=== PATIENT | female | born 1950 | race Caucasian/White ===

== ENCOUNTER 2019-12-29 07:55 | Outpatient (CLI) | payer MEDICARE, OTHER, SELFPAY ==
--- NOTE | 2019-12-29 08:01 | MM_ITS ---
WS: [id number] BILATERAL DIGITAL SCREENING MAMMOGRAPHY WITH CAD CLINICAL INFORMATION: SCREENING HISTORY: Screening mammogram. No current complaints. COMPARISON: TECHNIQUE: Bilateral CC and MLO views. FINDINGS: The breasts are composed of heterogeneous fibroglandular density tissue, which can limit the detectio n of small underlying mass lesions. Bilateral punctate calcifications. Spiculated focal asymmetric de nsity right breast measuring 9 mm this appears to be upper inner right breast posterior depth. RECOMM END FURTHER EVALUATION WITH RIGHT DIAGNOSTIC MAMMOGRAPHY AND ULTRASOUND. Left breast is unremarkable. Vascular calcification. MM/[place] [id number] IMPRESSION: BI-RADS: 0-Incomplete: Need additional imaging evaluation FOLLOW UP: Need Additional Imaging
== END 2019-12-29 07:56 | disposition home or self-care (01) ==
LOC: RADSHAW 07:59
PROVIDERS: PCP Internal Medicine; Visit Provider Internal Medicine
DX: Z12.31 Encounter for screening mammogram for malignant neoplasm of breast (principal); R92.1 Mammographic calcification found on diagnostic imaging of breast
CPT/HCPCS: 77067

== ENCOUNTER 2020-01-02 10:06 | Outpatient (CLI) | payer MEDICARE, OTHER, SELFPAY ==
--- NOTE | 2020-01-02 10:09 | USCV_ITS ---
Ashley Garcia Age: 69 Gender: F : 1950 Exam Date: 01/02/2020 10:25 Ordering Phys: Donny Newell DO Technologist: Mildred Harrison Exam Location: [facility] – [place] Indication: SOB BP: 130 / 94 HR: 106 Rhythm: Other Technical Quality: Adequate MEASUREMENTS (Male / Female) Normal Values 2D ECHO LV Diastolic Diameter PLAX 3.3 cm 4.2 - 5.9 / 3.9 - 5.3 cm LV Systolic Diameter PLAX 2.5 cm LV Chamber Size 2.9 cm IVS Diastolic Thickness 1.1 cm 0.6 - 1.0 / 0.6 - 0.9 cm IVS Systolic Thickness 1.5 cm LVPW Diastolic Thickness 1.4 cm 0.6 - 1.0 / 0.6 - 0.9 cm LVPW Systolic Thickness 1.5 cm RV Chamber Size 3.6 cm LVOT Diameter 2.0 cm LV Ejection Fraction 2D Teich 47.5 % LV Ejection Fraction MOD 2C 75.2 % LV Ejection Fraction 2C AL 75.8 % LA Diameter 4.0 cm LA Width 3.9 cm LA Height 5.7 cm RA Width 3.3 cm RA Height 5.4 cm Aorta at Sinotubular Diameter 3.4 cm M-MODE LV Diastolic Diameter MM 4.4 cm 4.2 - 5.9 / 3.9 - 5.3 cm LV Systolic Diameter MM 2.6 cm LV Ejection Fraction MM Teich 72.9 % IVS Diastolic Thickness MM 1.2 cm 0.6 - 1.0 / 0.6 - 0.9 cm IVS Systolic Thickness MM 1.5 cm LVPW Diastolic Thickness MM 1.5 cm 0.6 - 1.0 / 0.6 - 0.9 cm LVPW Systolic Thickness MM 1.7 cm RV Diastolic Diameter MM 2.8 cm Aortic Annulus Diameter 3.1 cm LA Ao Ratio MM 1.3 MV E Point Septal Separation 0.3 cm DOPPLER AV Peak Velocity 131.0 cm/s LVOT Peak Velocity 94.0 cm/s AV Area Cont Eq vti 2.4 cm squared AV Area Cont Eq pk 2.3 cm squared MV Area PHT 5.0 cm squared MV E' Velocity 12.0 cm/s Mitral E to MV E' Ratio 8.9 Mitral E to LV E' Lateral Ratio 9.5 Mitral E to LV E' Septal Ratio 8.4 TR Peak Velocity 230.2 cm/s TR Peak Gradient 21.2 mmHg TR Mean Velocity 194.2 cm/s TR Mean Gradient 15.5 mmHg TR Velocity Time Integral 58.3 cm TV Peak E Velocity 71.0 cm/s Right Atrial Pressure 15.0 mmHg Pulmonary Artery Systolic Pressu 36.2 mmHg PV Peak Velocity 79.0 cm/s RV Acceleration Time 0.1 s RV Ejection Time 0.3 s RV AcT/ET 0.4 FINDINGS Left Ventricle Normal left ventricular size and LV function with no regional wall motion abnormalities. Mild LVH is noted. LVEF is 60-65%. Diastolic function can not be assessed because of tachycardia. Right Ventricle The right ventricle is normal in size and function. Right Atrium The right atrium is normal in size. Left Atrium The left atrium is normal in size. Mitral Valve Structurally normal mitral valve without significant stenosis or prolapse. There is no mitral regurgitation. Aortic Valve Structurally normal aortic valve without significant sclerosis or stenosis. There is no aortic regurgitation. Tricuspid Valve Structurally normal tricuspid valve without significant stenosis. Mild TR is noted. RA pressure is elevated at 10- 15mmHg. RVSP is 35-40. Atleast mild pulmonary hypertension Pulmonic Valve Structurally normal pulmonic valve without significant stenosis. There is no pulmonic regurgitation. Pericardium Normal pericardium without effusion. Aorta Mildly dilated ascending aorta CONCLUSIONS LV systolic function is normal with EF of 60-65% Diastolic function can not be assessed because of tachycardia. (Possible atrial fibrillation. If patient has not been diagnosed with afib before, will recommend getting EKG and event monitor if needed) Elevated RA pressure Mild dilatation of ascending aorta Cem Huerta MD (Electronically Signed) Final Date: 02 January 2020 12:40 S
== END 2020-01-02 10:07 | disposition home or self-care (01) ==
LOC: US 10:07
PROVIDERS: PCP Internal Medicine; Visit Provider Internal Medicine
DX: R06.00 Dyspnea, unspecified (principal); R06.02 Shortness of breath
CPT/HCPCS: 93306

== ENCOUNTER 2020-02-01 10:42 | Outpatient (CLI) | payer MEDICARE, OTHER, SELFPAY ==
--- NOTE | 2020-02-01 10:58 | MM_ITS ---
WS: [id number] RIGHT DIGITAL MAMMOGRAPHY WITH CAD CLINICAL INFORMATION: INCONCLUSIVE MAMMO,DENSITIES COMPARISON: December 29, 2019 TECHNIQUE: 3 views of the right breast were obtained. FINDINGS: The right breast is composed of heterogeneous fibroglandular density tissue, which can limit the dete ction of small underlying mass lesions. Stable spiculated asymmetric density right breast measuring 9 mm upper inner posterior depth. Ultraso und is pending. ULTRASOUND BREAST RIGHT TECHNIQUE: Ultrasound right breast focused area of concern. CLINICAL INFORMATION: INCONCLUSIVE MAMMO,DENSITIES COMPARISON: None. FINDINGS: Ultrasound right breast at the 1:00 position 3 cm from the nipple. Hypoechoic solid appearing lesion is taller than wide with irregular margins. Findings are suspicious and recommend further evaluation with ultrasound-guided biopsy. This lesion measures approximately 1.1 x 0.9 x 1.2 CM. Right axilla is evaluated and demonstrates enlarged lymph node with loss of the normal fatty hilum an d cortical thickening measuring 2.0x 2.5 x 1.3 CM. Recommend ultrasound-guided biopsy. MM/MM [place] [facility] [place] [id number] IMPRESSION: BI-RADS: 4-Suspicious Finding-Biopsy Should Be Considered FOLLOW UP: US Guided Biopsy Recommended
== END 2020-02-01 10:43 | disposition home or self-care (01) ==
LOC: RADSHAW 10:47
PROVIDERS: PCP Internal Medicine; Visit Provider Internal Medicine
DX: R92.8 Other abnormal and inconclusive findings on diagnostic imaging of breast (principal); R59.0 Localized enlarged lymph nodes
CPT/HCPCS: 76642; 77065

== ENCOUNTER 2020-02-10 07:54 | Outpatient (CLI) | payer MEDICARE, OTHER, SELFPAY ==
--- NOTE | 2020-02-10 08:15 | PC.NURSE ---
pt stated she took beta willis less than 24 hours ago. she was also concerned about tredmill test. discussed with pt the other options for today and she agreed to a chemical stress. spoke to dr mata about to switching to lexiscan, he agreed. pt to proceed with lexiscan today.
--- NOTE | 2020-02-10 08:15 | ECG_ITS ---
[facility] Test Date: 2020-02-10 Pat Name: Ashley Garcia Department: Room: Gender: Female [employer] Worker: : 1950 Requested By: Donny Delcid Order Number: [id number] Kimani MD: Anna Yoo M.D. Interpretive Statements NAME OF STUDY: LEXISCAN SESTAMIBI STRESS TEST INDICATION: Onset a fib, PROCEDURE: At the baseline, the EKG revealed atrial fibrillation with rapid ventricular rate and occasional PVCs. Incomplete right bundle branch block. The baseline blood pressure was 152/66 mm Hg with a heart rate of 139 beats/min. Lexiscan was infused over a period of 20 seconds. A total of 0.4 milligrams of Lexiscan was infused. The stress phase was continued for a total of 5 minutes. Heart rate at the end of the stress phase was 134 with a blood pressure 168/88. The EKG at the peak infusion revealed no significant changes. Sestamibi was injected 20 seconds after the Lexiscan infusion. Blood pressure at the end of the recovery phase was 160/88 with a heart rate of 131 per minute. CONCLUSION: 1. No significant EKG changes with the LexiScan infusion 2. No LexiScan induced chest pain or cardiac arrhythmia 3. Normal blood pressure and heart rate response 4. Sestamibi/sestamibi perfusion scan pending; see separate report. Electronically Signed On 02-10-2020 17:45:21 CDT by Anna Yoo M.D. [email or web address]
--- NOTE | 2020-02-10 09:34 | NMCV_ITS ---
NM alda perf SPECT r/s* [id number] Ashley Garcia Age: 69 Gender: F : 1950 Exam Date: 02/10/2020 09:29 Ordering Phys: Donny Newell DO Technologist: DELIA Hayes Exam Location: [facility] [place] Indications: NEW ONSET AFIB STRESS TEST [facility] IMAGE PROTOCOL Rest/Stress 1 Lexiscan Day Radiopharmaceutical Dose (mCi) Administration Site Administered by Rest: Tc-99m 10.8 IV Linda Bearden, HOT POND OPERATOR Sestamibi Stress:Tc-99m 32.4 IV Linda Bearden, HOT POND OPERATOR Sestamibi Rest: 10-Feb-2020 60 Discovery 630 Stress: 10-Feb-2020 30 Discovery 630 0.4mg Lexiscan. Images obtained in supine and prone position. SPECT RESULTS Technical Quality: Excellent Raw Data Analysis: Normal Image Corrections: No attenuation or motion correction applied Summed Stress Score: 1 Summed Rest Score: 1 Summed Difference Score: 0 PERFUSION FINDINGS Myocardial perfusion imaging reveals small sized defect of mild severity in basal to mid anterior wall with somewhat improved tracer uptake in prone stress images. This is likely consistent with breast attenuation artifact. FUNCTIONAL RESULTS (calculated via Gated SPECT) Stress Image LV EF (%): 50 Stress EDV (mL):62 TID: 1 Stress ESV (mL):31 FUNCTIONAL FINDINGS: The left ventricle is normal in size. Transient Ischemia Dilatation of 1. The left ventricular ejection fraction is low normal with a value of 50%. There is normal left ventricular wall thickening. Normal end diastolic and end systolic volumes. IMPRESSIONS 1. Myocardial perfusion imaging reveals mild defect in basal to mid anterior wall consistent with breast attenuation artifact. 2. Overall left ventricular systolic function is low normal without regional wall motion abnormalities. 3. The left ventricular ejection fraction is low normal with a value of 50%. 4. No coronary ischemia based on this study. Christina Morales MD (Electronically Signed) Final Date: 11 February 2020 10:09 S
[2020-02-10 09:41] VITALS: BMI 33.6
[2020-02-10] MEDS: regadenoson 0.4 Mg/5 ml Syringe IVP (10:14)
[2020-02-10 10:34] VITALS: BP 160/88; PULSE 132
== END 2020-02-10 07:55 | disposition home or self-care (01) ==
LOC: CDL 07:55
PROVIDERS: PCP Internal Medicine; Visit Provider Internal Medicine
DX: I48.91 Unspecified atrial fibrillation (principal)
CPT/HCPCS: 78452; 93017; A9500; J2785

== ENCOUNTER 2020-02-16 07:13 | Outpatient (CLI) | payer MEDICARE, OTHER, SELFPAY ==
--- NOTE | 2020-02-16 07:21 | US_ITS ---
WS: [id number] ULTRASOUND-GUIDED RIGHT BREAST BIOPSY HISTORY: ABNORMAL MAMMOGRAM COMPARISON: None. Procedure, risks and complications are explained to the patient. Medications are reviewed. Consent is obtained. The mass in the RIGHT breast is localized with ultrasound. Mass is localized to 1:00, 3 cm from the n ipple. Skin is cleansed with ChloraPrep and anesthetized with 1% buffered lidocaine. Small dermatome is made. Under sterile conditions mass is biopsied with a 14-gauge Achieve needle. Multiple core biop sies are performed. Material placed in formalin and sent to pathology for review. No complications en countered. Breast tissue marker (Clowdy ultrasound enhanced ribbon): Single. Patient left the radiology suite with no complications. [place] [facility] [place] [facility] with any concerns. US/[place] [id number] IMPRESSION: 1. Uncomplicated core needle biopsy RIGHT breast mass at 1:00. PATHOLOGY: Ductal carcinoma in situ, grade 3 with comedonecrosis. Invasive duct al carcinoma. Preliminary report with additional pathology evaluation pending. RECOMMENDATION: Follow-up with Dr. Newell, oncology and breast surgeon.
== END 2020-02-16 07:14 | disposition home or self-care (01) ==
PROVIDERS: PCP Internal Medicine; Visit Provider Internal Medicine
DX: R92.8 Other abnormal and inconclusive findings on diagnostic imaging of breast (principal); C50.211 Malignant neoplasm of upper-inner quadrant of right female breast
CPT/HCPCS: 19083; 88305

== ENCOUNTER 2020-02-24 12:12 | Outpatient (CLI) | payer MEDICARE, OTHER, SELFPAY ==
[2020-02-24 12:48] LABS: Anion Gap 12.1 (5-19); Blood Urea Nitrogen 13 mg/dL (8-23); Calcium 9.5 mg/dL (8.5-10.5); Carbon Dioxide 31 mmol/L (22-29); Chloride 100 mmol/L (98-107); Glomerular Filtration Rate 61.9 mL/min (90-130); Glucose 144 mg/dL (65-115); Osmolality Calculated 293 mOsm/kg (285-295); Potassium 3.1 mmol/L (3.5-5.1); Sodium 140 mmol/L (136-145)
== END 2020-02-24 12:13 | disposition home or self-care (01) ==
LOC: LAB 12:16
PROVIDERS: PCP Internal Medicine; Visit Provider Internal Medicine
DX: R53.83 Other fatigue (principal)
CPT/HCPCS: 36415; 80048

== ENCOUNTER 2020-03-14 12:12 | Outpatient (CLI) | payer MEDICARE, OTHER, SELFPAY ==
--- NOTE | 2020-03-14 12:22 | US_ITS ---
WS: [id number] ULTRASOUND-GUIDED RIGHT AXILLARY NODE BIOPSY. HISTORY: RIGHT BREAST CANCER COMPARISON: 02/16/2020 Procedure, risks and complications are explained to the patient. Medications are reviewed. Consent is obtained. Recently described RIGHT axillary lymph node is identified by ultrasound. This does appear to be a no rmal lymph node with diffuse fatty replacement. Skin is cleansed with ChloraPrep and anesthetized wit h 1% buffered lidocaine. Small dermatome is made. Under sterile conditions lymph node is is biopsied with an 18 Achieve needle. Multiple core biopsies are performed. Material placed in saline and sent t o pathology for review. No complications encountered. Breast tissue marker (Bard ultrasound enhanced ribbon): Single. Patient left the radiology suite with no complications. Patient is instructed to return [place] [facility] [place] [facility] with any concerns. US/US biopsy lymph node breast/ax IMPRESSION: 1. Uncomplicated core needle biopsy RIGHT axillary lymph node. PATHOLOGY: Reactive follicular hyperplasia. No malignancy. Flow cytometry will be performed also. RECOMMENDATION: Follow-up with Dr. Bennett.
== END 2020-03-14 12:13 | disposition home or self-care (01) ==
LOC: RAD 12:14
PROVIDERS: PCP Internal Medicine; Visit Provider Surgery
DX: C50.911 Malignant neoplasm of unspecified site of right female breast (principal)
CPT/HCPCS: 19083; 38505; 76942; 88305

== ENCOUNTER → 2020-03-25 09:51 | Outpatient (BNVA) | payer MEDICARE, OTHER, SELFPAY | PROVIDERS: PCP Internal Medicine; Visit Provider Surgery | DX: Z11.59 Encounter for screening for other viral diseases (principal) | CPT/HCPCS: 87635 ==

== ENCOUNTER 2020-03-29 08:13 | Day surgery (SDC) | payer MEDICARE, OTHER, SELFPAY ==
[2020-03-28 10:56] VITALS: BMI 33.6
[2020-03-29] VITALS (8 sets, daily range): BP systolic 167–221; BP diastolic 113–155; PULSE 79–98; RESP 18; TEMP 36.7–36.9; O2SAT 94–97
--- NOTE | 2020-03-29 08:00 | NM_ITS ---
WS: [id number] SENTINEL NODE TECHNIQUE: Right sentinel node injection CLINICAL INFORMATION: R Breast Lumpectomy COMPARISON: None. PROCEDURE: The procedure including risks, benefits, and complications were discussed; the patient agr eed to proceed. Patient was prepped and draped in usual sterile fashion. Subsequently, 1% lidocaine p reservative-free was administered at the 12:00, 3:00, 6:00, and 9:00 o'clock positions for local anes thesia. Subsequently, 4 aliquots of filtered technetium 99m sulfur colloid was injected into the subc utaneous soft tissues. A total dose of 1.06 mCi was administered. Patient tolerated the procedure well with no immediate complications. SC/NM sentinel node inject [id number] IMPRESSION: Uncomplicated Right breast sentinel node injection with a total dose of 1.06 mC i.
--- NOTE | 2020-03-29 09:11 | W.PM.OPSUD ---
Surgery/Procedure H&P Update DATE OF PROCEDURE: March 29, 2020 DATE H&P PERFORMED: 03/20/20 H&P UPDATE INFORMATION: No changes to prior documentation PLANNED PROCEDURE: Operation Date: 03/29/20 11:15 Proposed Procedures p Sentinal Lymph Node Biopsy(Right) - Dieudonne Bennett MD s Right breast lumpectomy(Right) - Dieudonne Bennett MD
--- NOTE | 2020-03-29 09:39 | ANES.PREANE2 ---
Pre-Anesthetic Assessment Pre-Anesthetic Assessment: Height/Weight: Height 1.6 m Weight 86.183 kg Temp Pulse Resp Pulse Ox 98.4 F 98 18 97 03/29/20 08:38 03/29/20 08:38 03/29/20 08:38 03/29/20 08:38 Preop Diagnosis: None Proposed Procedure: Operation Date: 03/29/20 11:15 Proposed Procedures p Sentinal Lymph Node Biopsy(Right) - Dieudonne Bennett MD s Right breast lumpectomy(Right) - Dieudonne Bennett MD Familial anesthetic complications: PONV Was Beta Ari taken within 24 hours: N/A Last intake: NPO > 8 hrs Social: Social History: No alcohol and No tobacco Exam: Pre-Anes Outpt Exam: alert, oriented x 3, clear to auscultation bilaterally and regular rate & rhythm Airway: Cervical ROM: WNL MP: 4 Dentition: Full Additional comments: Small mouth opening, everytime she goes to dentist her jaw hurts CV/HEM: CV/HEM: Afib and HTN GI: GI: GERD Anesthetic Plan: ASA status: 3 Anesthesia: MAC Risk of > 500 ml blood loss (7ml/kg in children): No Data Anesthesia Cardiac Studies: Cardiac Event Monitor 02/29/20
[2020-03-29] MEDS: scopolamine 1.5 Patch 1 PATCH TRANSDERMA (09:49)
[2020-03-29] MEDS: sodium chloride 0.9% 1,000 ML 30 ML IV (10:00)
--- NOTE | 2020-03-29 11:10 | P.OP_ITS ---
Operative Report Date of procedure: March 29, 2020 Pre-op Diagnosis: Right breast cancer. Post-op diagnosis: same Procedure Done: 1. Right breast lumpectomy. 2. Right axillary sentinel lymph node biopsy. Specimens removed/disposition: 1. Right breast lumpectomy. Long suture anteriorly, short suture medial. 2. Right axillary sentinel lymph node(s). Surgeon: Dieudonne Bennett Anesthesia: MAC Estimated blood loss (mL): 5 Complications: None. Condition: stable Disposition: PACU Procedure: The patient was brought to the operating room and was placed in a supine position on the operating room table. The patient had undergone radioactive tracer injection in radiology preoperatively. A monitored anesthetic was induced. The right axilla and breast were prepped and draped in a sterile fashion. A combination of 1% lidocaine and 0.5% bupivacaine with 1- 200,000 parts epinephrine was used for local anesthesia throughout the procedures. Attention was first directed to the right axilla. The gamma probe was used to find the hot spot in the axilla inferiorly and slightly medially. A slightly curvilinear incision was carried out over the hot spot of the axilla. Cautery and blunt dissection were used to traverse the subcutaneous tissue and the axilla was entered. Using a combination of inspection and the gamma probe, the hot lymph node was found and was completely removed using blunt dissection and cautery. There actually appeared to be perhaps 2 lymph nodes just adjacent to each other, both of which were removed and one specimen. One of the lymph no valeriy registered counts of just over 2000 on the field. Further inspection of the axilla with the gamma probe revealed very few remaining counts at all. The wound was irrigated with saline. A suture of 3-0 Vicryl was used to bring the deeper tissue together and the skin was approximated using a running subcuticular suture of 4-0 Vicryl. Attention was then directed to the right breast where the patient had a palpable mass in the 1:00 axis several centimeters out from the edge of the areola. A transverse incision was made and skin flaps were created inferiorly and superiorly. Dissection with cautery, blunt dissection, and some sharp dissection was then carried out posteriorly and the entire firm mass was included in the specimen with some normal-appearing breast tissue around it. The specimen was marked with a long suture anteriorly and a short suture medially for pathologic orientation. No other abnormalities were seen or palpated anywhere in the wound. The wound was irrigated with saline. The skin was reapproximated using a running subcuticular suture of 4-0 Vicryl. Benzoin and Steri-Strips were placed over the wounds and sterile bandages followed. The patient was taken to the recovery area in stable condition postoperatively.
[2020-03-29] MEDS: labetalol 5 mg/mL SDV 20mL 10 MG IVP ×2 (11:48→13:20)
[2020-03-29] MEDS: hyDRALAzine 20 mg/mL INJ 1 mL 10 MG IVP (12:33)
[2020-03-29] MEDS: hyDRALAzine 50 mg Tablet PO (14:11)
--- NOTE | 2020-03-29 20:21 | ANE.PACU2 ---
Inpatient post-anesthesia follow up: Airway intact: Yes Vital signs: Temperature 98.1 F Pulse Rate 94 Respiratory Rate 18 Blood Pressure 200/130 Pulse Oximetry 97 Oxygen Delivery Me thod Room Air Oxygen Flow Rate Fraction of Inspir ed Oxygen Hydration adequate: Yes Nausea and vomiting: No Pain level: 1 Mental status: Baseline Additional Comments: Patient with hypertensive urgency after procedure despite taking all her morning medicines and being given labetalol 20 mg IV and hydralazine 10 mg IV. Spoke with Dr. Huerta who recommended admission with hospitalist for inpatient BP control. However, patient very reluctant to be admitted, stating she was always like this and that she was having no symptoms and would sign out AMA. After i spoke with her, She did decide to have conversation with hospitalist, Dr. Dejesus regarding possible admission. Apparently, after the conversation she decided not to be admitted and to go home.
== END 2020-03-29 15:10 | disposition home or self-care (01) ==
PROVIDERS: PCP Internal Medicine; Visit Provider Surgery
PROC: (CPT 19301; principal; 2020-03-29 11:15)
PROC: (CPT 19301; 2020-03-29 11:15)
DX: D05.11 Intraductal carcinoma in situ of right breast (principal); D05.81 Other specified type of carcinoma in situ of right breast; I10 Essential (primary) hypertension; I48.91 Unspecified atrial fibrillation; Z80.0 Family history of malignant neoplasm of digestive organs; Z80.3 Family history of malignant neoplasm of breast
CPT/HCPCS: 19301; 38500; 38792; 12345; 88305; 96374; 96375; A9541; J0360; J0690; J2704; J3010; J3490; J7030

== ENCOUNTER 2020-04-17 13:06 | Outpatient (CLI) | payer MEDICARE, OTHER, SELFPAY ==
--- NOTE | 2020-04-17 17:32 | ONC CON_ITS ---
Dr. Robles New Patient Note Patient: Ashley Garcia Unit #: [id number]: 1950 Dicatated By: Donny Robles M.D.Date of Visit: Apr 17, 2020 Onc MED New Patient/Consult Referring Physician: Dr. Dieudonne Bennett M.D. Chief Complaint: Breast cancer. 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 She had presented with abnormal screening mammogram. That study, from 12/29/2019, was BI-RADS 0. Findings included a 9 mm spiculated focal asymmetric density in the upper inner right breast. Additional mammographic views on 02/01/2020 showed stable spiculated asymmetric density in the right breast. Ultrasound at that time showed a hypoechoic solid-appearing lesion with irregular measuring 1.9 x 0.9 x 1.2 cm. A 2.0 x 2.5 x 1.3 cm lymph node in the right axilla showed loss of normal fatty hilum and cortical thickening. The findings were BI-RADS 4, suspicious, and biopsy was recommended. On 02/16/2020 she underwent biopsy of the right breast lesion at 1:00. Pathology showed grade 2 invasive ductal carcinoma and ductal carcinoma in situ, solid type, grade 3 with comedonecrosis. The breast prognostic profile showed ER +85% and UT positive at 90%. The tumor was positive for overexpression of HER-2/cathryn, 3+ by IHC with amplification ratio by FISH of 5.2 with 10.0 HER-2 copies/cell. The Ki-67 was borderline at 10%. On 03/14/2020 she underwent ultrasound-guided biopsy of the right axillary lymph node. Pathology showed reactive follicular hyperplasia. There was no malignancy identified. On 04/02/2020 she underwent right breast lumpectomy with axillary sentinel lymph node biopsy. The gross pathology described a chase-white lesion within the lumpectomy specimen measuring 1 x 1.2 x 0.8 cm. Microscopic examination showed grade 2 invasive ductal carcinoma measuring 2 mm in greatest dimension. The closest margin to invasive carcinoma was the superior margin measuring 4 mm. Grade 3 ductal carcinoma in situ was noted in 4 blocks. The closest margin to DCIS was also the superior margin measuring 2.8 mm. There was no involvement in 2 sentinel lymph nodes. Other pathologic findings included fibroadenoma, sclerosing adenosis, apocrine ADH and previous biopsy site changes. Her pathologic staging was pT1a, pN0. She is seen now for further management. She says she has been feeling a little tired and her activity is somewhat limited. ECOG score is 1. Her appetite is smaller than it used to be. She had a little weight loss, but recently it has been stable. She has not had fever, night sweats, or hot flashes. She has had a couple of nosebleeds since she started anticoagulation with apixaban, and she did have to have a cauterization procedure on 1 occasion. She says her breathing is much better now with her atrial fibrillation controlled. She has not had chest pain. She does have hypertension which has been somewhat refractory to treatment. She has no GI or complaints. She has had a previous episode of sciatica, and since then she has some pain in the low back and left hip which comes and goes. It has not bothered her recently. She has no other joint or bone pain. She has no focal neurologic symptoms. Past Medical History: Her medical history includes allergic rhinitis, atrial fibrillation, and hypertension. She has a history of sciatica. Past Surgical History: She underwent ultrasound guided biopsy of the right breast on 02/16/2020, ultrasound-guided biopsy of right axillary lymph node on 03/14/2020, and right breast lumpectomy with axillary sentinel lymph node biopsy on 04/02/2020. Her other surgical/procedural history includes cholecystectomy and tubal ligation. Medications: Digoxin 1 Tablet (of 125 mcg) Oral daily, Eliquis 1 Tablet (of 5 mg) Oral b.i.d., Loratadine 1 Tablet (of 10 mg) Oral daily, Losartan Potassium 1 Tablet (of 100 mg) Oral daily, Metoprolol Tartrate 1 Tablet (of 100 mg) Oral b.i.d., oxyCODONE-Acetaminophen 1 Tablet (of 7.5-325 mg) Oral daily PRN, Pantoprazole Sodium 1 Tablet (of 40 mg) Tablet, enteric coated Oral daily Allergies: adhesive tape Social History: Ms. Garcia is . She is a non-smoker. She has had just occasional alcohol use. Family History: Father of heart disease at age 62. Mother of blood clot at age 86. She had heart disease and she also had colon cancer. A sister of breast cancer at age 46. A maternal aunt also had breast cancer at a young age. Review Of Symptoms: Constitutional - She has been feeling tired and her activity is somewhat limited. Her appetite is smaller. She had lost a little weight, but recently it has been stable. She has no fever, night sweats, or hot flashes. ECOG score is 1, Eyes - She has had gradual decline in visual acuity, ENMT - No hearing loss or tinnitus. No sinus congestion/drainage. She had a couple of nosebleeds since starting Eliquis, and she did have 1 cauterization procedure. No mouth sores. No sore throat or difficulty swallowing, Hematologic/Lymphatic - She has had some bruising, Respiratory - She was having shortness of breath, but her breathing is much better now. No cough. No pleuritic pain or hemoptysis, Cardiovascular - No angina pain. She has atrial fibrillation. She has had fairly refractory hypertension, Gastrointestinal - No nausea or vomiting. No heartburn or acid reflux. No diarrhea or constipation. No blood in the stool or black stools, Genitourinary (F) - No dysuria or hematuria. No urinary frequency. No urgency or incontinence, Musculoskeletal - Since her previous episode of sciatica as she has had some pain in her lower back and left hip which comes and goes. She has no other joint or bone pain, Integumentary - No skin rash, Neurologic - No headache. She has had vertigo in the past. No numbness or tingling. No other focal neurologic symptoms, Psychiatric - No anxiety or depression. She has chronic insomnia. Vital Signs: Performed on Apr 17, 2020 13:44: 0, 34.51 (HIGH), 1.91 sq.m, 63.00 in, 96 %, 87 /min, 18 /min, 240/153 mm(hg) (HIGH), 98.2 F (LOW), and 194.8 lbs (HIGH). Physical Examination: Constitutional - She appears to be in good general health, Eyes - Sclerae nonicteric. Conjunctivae clear, ENMT - No lesions noted in the oral cavity, Neck - No mass or thyromegaly, Hematologic/Lymphatic - No cervical or clavicular adenopathy, Respiratory - Lungs are clear with good air movement bilaterally, Cardiovascular - Heart rhythm is irregular. The rate is controlled. There is no murmur, gallop, or rub noted, Breasts - There is residual ecchymosis at the biopsy site in the superior right breast. There is a significant area of firmness in the breast from the biopsy site extending down to the nipple areolar complex. The left breast shows no mass. There is no axillary adenopathy, Abdomen - Soft and non-tender. Liver and spleen are not enlarged. There is no abdominal mass or ascites noted and there is no inguinal adenopathy, Back/Spine - No spine or CVA tenderness noted, Extremities - No edema, Integumentary - No rashes. No suspicious skin lesions noted, Neurologic - No focal neurologic deficits noted. Impression: 1. 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 Her tumor was reported to be ER/UT positive and HER-2/cathryn positive. 2. Her procedures included ultrasound guided biopsy of the right breast on 02/16/2020, ultrasound-guided biopsy of right axillary lymph node on 03/14/2020, and right breast lumpectomy with axillary sentinel lymph node biopsy on 04/02/2020. 3. There is family history of breast cancer affecting her sister and a maternal aunt. Her other medical illnesses include: 4. Hypertension. 5. Atrial fibrillation. 6. Allergic rhinitis. 7. She has a history of sciatica. Plan: The pathology findings were reviewed with the patient and we discussed the clinic complications. 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 It is unclear from the pathology report the exact extent of the DCIS, but she does appear to have had a very small component of invasive cancer. I also have some reservation as to whether the breast prognostic profile was performed on an invasive cancer or DCIS, particularly with the HER-2/cathryn being positive. However, given the very small of invasive cancer, I am not going to recommend adjuvant chemotherapy. I will have her see Dr. Garcia to for radiation oncology consultation, and I will plan to give her adjuvant hormonal therapy when the radiation is completed. I also will see if she qualifies for genetic screening. In the meantime, I will contact Dr. Joyner for further clarification of the pathology. Signed By: Donny Robles M.D. <<Signature on File>>
== END 2020-04-17 13:07 | disposition home or self-care (01) ==
LOC: ONCMED 13:07
PROVIDERS: PCP Internal Medicine; Visit Provider Internal Medicine Hematology & Oncology
DX: C50.211 Malignant neoplasm of upper-inner quadrant of right female breast (principal); Z17.0 Estrogen receptor positive status [ER+]; Z80.3 Family history of malignant neoplasm of breast; I10 Essential (primary) hypertension; I48.91 Unspecified atrial fibrillation; J30.9 Allergic rhinitis, unspecified; Z87.39 Personal history of other diseases of the musculoskeletal system and connective tissue
CPT/HCPCS: 99205

== ENCOUNTER 2020-04-20 08:59 | Emergency (ER) | payer MEDICARE, OTHER, SELFPAY ==
[2020-04-20 09:06] VITALS: BP 245/210; PULSE 128; RESP 17; TEMP 36.4; O2SAT 97; BMI 33.6
--- NOTE | 2020-04-20 09:08 | W.ED.EPISTAX ---
HPI - Epistaxis General: Chief complaint: Epistaxis Stated complaint: NOSE BLEED Time Seen by Provider: 04/20/20 09:08 Source: patient Mode of arrival: ambulatory Limitations: no limitations History of Present Illness: HPI Narrative: Patient comes in today with complaints of nosebleed from the left nostril. Patient has recently been placed on apixaban for atrial fib. Patient also has been started on digoxin. Patient has hypertension and her normal blood pressure usually runs around 190 systolic. Patient takes 100 mg losartan daily and 150 mg twice daily of metoprolol tartrate. Patient denies any chest discomfort. Patient denies significant headache. Patient comes in due to nosebleeds starting starting last night at 2200. Patient appears well. Patient appears no acute distress. Review of Systems General: Reports: 10 or more systems reviewed and unremarkable except in HPI and below ENMT: Reports: epistaxis (left nostril) [facility] ED PFSH: Medical History (Updated 04/20/20 @ 10:01 by ABHAY Strong) Atrial fibrillation Hypertension Surgical History (Updated 03/29/20 @ 18:32 by Cem Huerta M.D) History of tubal ligation Family History (Updated 03/29/20 @ 18:33 by Cem Huerta M.D) Other CAD (coronary artery disease) Cancer Hypertension Social History (Updated 03/29/20 @ 18:33 by Cem Huerta M.D) Smoking and tobacco status: never smoked Physical Exam Const: COMMON NORMALS: no acute distress and patient oriented x3 GENERAL APPEARANCE: cooperative HENMT: COMMON NORMALS: normocephalic HEAD & SCALP: normal to inspection and normocephalic NOSE: Epistaxis present on the left MOUTH: Normal oral and palatal mucosa present THROAT: other (Clot in the posterior oropharynx.) Eye: GENERAL EYE: appearance normal, both eyes and all related structures Neck/C-Spine: COMMON NORMALS: full ROM Lymph: LYMPHATIC: no lymphadenopathy noted Chest: COMMONS NORMALS: normal inspection of the chest Resp: COMMON NORMALS: normal respiratory effort EFFORT & INSPECTION: Yes able to speak in complete sentences Cardio: COMMON NORMALS: regular rate and regular rhythm RATE: regular rate RHYTHM: regular rhythm GI: COMMON NORMALS: non-tender Back/Pelvis: COMMON NORMALS: thoracic and lumbar spine normal to inspection Extremity: COMMON NORMALS: normal to inspection Neuro: COMMON NORMALS: patient oriented x3 and moves all extremities Psych: COMMON NORMALS: mental status grossly normal and cooperative Skin: COMMON NORMALS: no rashes or lesions noted GENERAL SKIN EXAM: no rashes or lesions noted Procedures Epistaxis Control Nostril: left Nose Prepped With: lidocaine and oxymetazoline Direct Inspection: anterior source identified Clots Removed by: manually Cautery Used: none Device Inserted: other (saturated gauze) Patient Tolerated Procedure: well Course ED course: 955, bleeding controlled, packing of gauze saturated with lidocaine and epinephrine in place, posterior pharynx is clear of any blood. Offered to set patient up appointment with ENT, but she refused. wjw [id number], no further bleeding, reviewed post care plan and need for f/u, patient reports understanidng Vital Signs: Vital signs: Vital Signs Temperature 97.5 F L 04/20/20 09:06 Pulse Rate 112 H 04/20/20 10:16 Respiratory Rate 16 04/20/20 10:16 Blood Pressure 217/155 04/20/20 10:16 Pulse Oximetry 96 04/20/20 09:30 MDM - Epistaxis MDM Narrative: Medical decision making narrative: Patient comes in today for complaints of bleeding in the left nostril. Patient has had previous episodes of nosebleeds. Patient normally has high blood pressure which she is being managed with Dr. Newell. On exam we note a anterior nosebleed. Differential diagnosis includes but not limited to anemia, anticoagulation, epistaxis. We was able to get control of nosebleed with minimal effort. A saturated pledget with lidocaine and epinephrine and pressure allowed for epistaxis control. We left packing in the nose which patient should remove in 2 days. Patient reported understanding and need for removal of packing or to return to the ER to ensure propria removal. Patient was recommended to follow-up with ENT. Blood pressure did come down 30 points systolic which is more along the lines of patient's normal which is still quite elevated at 217 systolic. Patient states that she has always had problems for blood pressure and this is not abnormal for her. Patient denied any severe headache or chest pain with it. Patient will continue appropriate care with primary care provider regarding her blood pressure. Lab Data: Labs: Lab Results 04/20/20 Range/Units 09:47 WBC 8.1 (4.0-10.0) 10^3/ uL RBC 4.46 (4.1-5.3) 10^6/u L Hgb 13.5 (11.5-15.3) g/dL Hct 41.5 (37.0-47.0) % MCV 93.0 (81-99) fL MCH 30.3 (28.0-34.0) pg MCHC 32.5 (30.0-36.0) g/dL RDW 14.3 (12.1-15.1) % Plt Count 246 (130-400) 10^3/c mm MPV 11.4 H (7.4-10.4) fL Neut % (Auto) 64.0 % Lymph % (Auto) 25.1 % Drew % (Auto) 6.8 % Eos % (Auto) 2.6 % Baso % (Auto) 1.0 % Neut # (Auto) 5.21 (1.8-7.7) 10^3/u L Lymph # (Auto) 2.0 (0.8-4.8) 10^3/u L Drew # (Auto) 0.6 (0.2-0.9) 10^3/u L Eos # (Auto) 0.2 (0.0-0.8) 10^3/u L Baso # (Auto) 0.1 (0.0-0.1) 10^3/u L Nucleated RBC % (a uto) 0 % Nucleated RBCs # 0.0 /100WBC Discharge Plan Discharge Patient Disposition: Home Clinical Impression: Nasal bleeding Condition: Stable Prescriptions: No Action loratadine [Allergy Relief (loratadine)] 10 mg tablet 10 mg PO DAILY RF: 0 losartan 100 mg tablet 100 mg PO DAILY RF: 0 oxycodone-acetaminophen 7.5-325 mg tablet 1 tab PO Q4H PRN (Reason: Pain) RF: 0 pantoprazole 40 mg tablet,delayed release (DR/EC) 40 mg PO DAILY RF: 0 furosemide 40 mg tablet 40 mg PO DAILY RF: 0 Eliquis 5 mg tablet 5 mg PO BID Qty: 180 RF: 0 digoxin 125 mcg (0.125 mg) tablet 125 mcg PO DAILY Qty: 90 RF: 3 metoprolol tartrate 100 mg tablet 150 mg PO BID Qty: 180 RF: 0 Discharge Orders: Discharge ED (Routine); Ordered 04/20/20 Ordered By: Boom Gorman Referrals: Donny Newell DO [Primary Care Provider] - Patient Instructions: Epistaxis (ED) Activity Restrictions/Additional Instructions: Have packing removed on Thursday. You may remove it at home or you may come into the emergency room to have it removed. If you remove at home saturated thoroughly with saline spray and then gently pull from the nostril. Then for the next 3 days use Afrin nasal spray 1 to 2 sprays 3 times a day for 3 days. Avoid picking or blowing nose hard. Follow-up with research development director for further evaluation and treatment. Return to the emergency department for new concerns. Coding Level of Care Code ED Electronic Data Interchange Specialist for Anne Vivar Exam Comprehensive
[2020-04-20 09:20] VITALS: BP 234/165
[2020-04-20] MEDS: oxymetazoline 0.05% Nasal Spray 15 mL 2 SPRAY NOSTRIL-B (09:20)
[2020-04-20] MEDS: cloNIDine 0.1 mg Tablet PO (09:20)
[2020-04-20 09:30] VITALS: BP 232/196; PULSE 141; RESP 19; O2SAT 96
[2020-04-20 10:00] VITALS: BP 214/161; PULSE 109; RESP 16
[2020-04-20 10:16] VITALS: BP 217/155; PULSE 112; RESP 16
[2020-04-20 10:16] LABS: Basophils # 0.1 10^3/uL (0.0-0.1); Eosinophils # 0.2 10^3/uL (0.0-0.8); Eosinophils % 2.6 %; Hematocrit 41.5 % (37.0-47.0); Hemoglobin 13.5 g/dL (11.5-15.3); Lymphocytes % 25.1 %; Mean Corpuscular HGB Conc 32.5 g/dL (30.0-36.0); Mean Corpuscular Hemoglobin 30.3 pg (28.0-34.0); Mean Platelet Volume 11.4 fL (7.4-10.4); Monocytes # 0.6 10^3/uL (0.2-0.9); Monocytes % 6.8 %; Neutrophils # 5.21 10^3/uL (1.8-7.7); Nucleated Red Blood Cells % 0 %; Platelet Count 246 10^3/cmm (130-400); Red Blood Count 4.46 10^6/uL (4.1-5.3); Red Cell Distribution Width 14.3 % (12.1-15.1); White Blood Count 8.1 10^3/uL (4.0-10.0)
[2020-04-20 10:44] VITALS: BP 207/140; PULSE 121; RESP 18; O2SAT 96
== END 2020-04-20 10:44 | disposition home or self-care (01) ==
PROVIDERS: Emergency Provider Nurse Practitioner Family; PCP Internal Medicine
DX: R04.0 Epistaxis (principal); Z79.01 Long term (current) use of anticoagulants; I48.91 Unspecified atrial fibrillation; I10 Essential (primary) hypertension
CPT/HCPCS: 12345; 30901; 36415; 85025; 99281; 99283

== ENCOUNTER 2020-05-01 05:27 | Outpatient (RCR) | payer MEDICARE, OTHER, SELFPAY ==
--- NOTE | 2020-04-23 13:57 | N.ONRAD NP_ITS ---
Radiation Oncology Consult Patient: Ashley Garcia MR#: [id number] : 1950 Attending Physician: Stevan Garcia M.D. Date of Service: 04/23/2020 Donna Garcia was seen in consultation this afternoon for evaluation regarding potential adjuvant breast radiotherapy for the management of her recently diagnosed early stage breast cancer. The patient presented for routine screening mammography performed on December 29, 2019 that identified a spiculated density in the upper inner quadrant of the right breast. Diagnostic mammograms obtained on February 01, 2020 revealed the spiculated density within the right breast measuring 9 mm. Ultrasonography demonstrated at the 1 o'clock position, 3 cm from the nipple a 1.1 cm x 0.9 cm x 1.2 cm hypoechoic density with an enlarged right axillary lymph node measuring 2 cm x 2.5 cm x 1.3 cm with loss of the normal fatty hilum and cortical thickening. An ultrasound-guided breast biopsy completed on February 16, 2020 confirmed a grade II invasive ductal carcinoma. Immunohistochemical stains were positive for estrogen receptor (85%) and progesterone receptor (90%) but negative for HER-2/cathryn. The KI-67 was 10%. Biopsy of enlarged right axillary lymph node obtained on March 14, 2020 revealed reactive follicular hyperplasia without malignancy identified. A right partial mastectomy with sentinel lymph node biopsy was performed by Angel Bennett M.D. on March 29, 2020. A 2 mm grade II invasive ductal carcinoma was diagnosed. Ductal carcinoma in situ of high-grade with a solid sub-pattern and comedonecrosis was present. All surgical margins were negative. [place] lymph node biopsy harvested two lymph nodes negative for malignancy. The patient presents for discussion concerning adjuvant breast radiotherapy. The patient's past medical history is significant for allergic rhinitis, atrial fibrillation, hypertension and sciatica. Past surgical history includes cholecystectomy, partial mastectomy with SLN (right), and tubal ligation. Her obstetrical history is . Menses began at the age of 10 and menopause in her sixth decade. I have reviewed the patient's medication profile which is available in the electronic medical record. She described an adhesive tape allergy. The patient's family history was remarkable for breast cancer (sister and maternal aunt). The patient was accompanied to this consultation by her . She reported occasional alcohol intake and disavowed a tobacco habit. On review of systems, she did not report any constitutional complaints including fevers of unknown origin or unintentional weight loss. There were no head neck complaints including diplopia, tinnitus, epistaxis, or dysphagia. She did not report breast complaints such as masses or nipple discharge. She disavowed any enlarged lymph nodes of the neck, armpit, or groin. She denied any cardiopulmonary symptoms such as angina, cough, or palpitations. On gastrointestinal review, she reported dyspepsia but no nausea or diarrhea. There were no genitourinary complaints such as dysuria or hematuria. She did not report any musculoskeletal complaints including bone pain or muscle weakness. There were no neurological symptoms such as headaches, paresthesias, or seizures. On physical examination, the patient has an ECOG performance status of 0. She was 5 ft 3 in tall and weighed 191 lbs. The temperature was 98.6???F. The blood pressure was 167/116 mmHg. The pulse was 80 bpm and the respiratory rate of was 18. The head was normocephalic and atraumatic. Ophthalmoscopy identified bilateral red reflexes but fundi were not well visualized. Otoscopy revealed light reflexes upon tympanic membranes. Aberrant light reflex noted upon . Rhinoscopy exhibited non-inflamed turbinates. The oral cavity had moist mucous membranes and no oropharyngeal exudate was present. There was no cervical adenopathy or thyromegaly. No dominant breast masses were palpated. A scar was present in the upper-inner quadrant of the right breast. Normal fremitus was noted with resonance to percussion elicited. Bronchovesicular breath sounds were auscultated in the posterior lung devlin. Cardiac sounds were irregular in rhythm. No auscultated gallops or murmurs present. No JVD noted. The abdomen had active bowel sounds. No tenderness to palpation. No evidence of organomegaly. No muscle weakness upon testing. No tenderness to deep palpation along the axial skeleton. Cranial nerves II through XII were intact. No sensory deficits. Slight hyperreflexia present. Gait was normal. In summary, the patient presented for routine screening mammography performed on December 29, 2019 that identified a spiculated density in the upper inner quadrant of the right breast. Diagnostic mammograms obtained on February 01, 2020 revealed the spiculated density within the right breast measuring 9 mm.. Ultrasonography demonstrated at the 1 o'clock position, 3 cm from the nipple a 1.1 cm x 0.9 cm x 1.2 cm hypoechoic density with an enlarged right axillary lymph node measuring 2 cm x 2.5 cm x 1.3 cm with loss of the normal fatty hilum and cortical thickening. An ultrasound-guided breast biopsy completed on February 16, 2020 confirmed a grade II invasive ductal carcinoma. Immunohistochemical stains were positive for estrogen receptor (85%) and progesterone receptor (90%) but negative for HER-2/cathryn. The KI-67 was 10%. Biopsy of enlarged right axillary lymph node obtained on March 14, 2020 revealed reactive follicular hyperplasia without malignancy identified. A right partial mastectomy with sentinel lymph node biopsy was performed by Angel Bennett M.D. on March. A 2 mm grade II invasive ductal carcinoma was diagnosed. Ductal carcinoma in situ of high-grade with a solid sub-pattern and comedonecrosis was present. All surgical margins were negative. [place] lymph node biopsy harvested two lymph nodes negative for malignancy. The patient presents for discussion concerning adjuvant breast radiotherapy. I reviewed with the patient her AJCC prognostic stage IA (T1aN0) breast cancer. I also discussed the National [employer] Guidelines for the omission of breast irradiation in patients 70 years of age or older with estrogen receptor positive, clinically node-negative, T1-2 tumors who will receive adjuvant endocrine therapy. I summarized the randomized trial published in [place] Journal of Medicine which established this standard. Signed by: Dr. Stevan Garcia 04/23/2020 1:55:24 PM
--- NOTE | 2020-05-06 21:59 | ONC FU_ITS ---
[facility] Patient Note Patient: Ashley Garcia Unit #: [id number]: 1950 Dictated By: Latricia KapadiaDate of Visit: May 01, 2020 Onc MED Follow-Up/Prog Note Chief Complaint: Breast cancer. 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 She had presented with abnormal screening mammogram. That study, from 12/29/2019, was BI-RADS 0. Findings included a 9 mm spiculated focal asymmetric density in the upper inner right breast. Additional mammographic views on 02/01/2020 showed stable spiculated asymmetric density in the right breast. Ultrasound at that time showed a hypoechoic solid-appearing lesion with irregular measuring 1.9 x 0.9 x 1.2 cm. A 2.0 x 2.5 x 1.3 cm lymph node in the right axilla showed loss of normal fatty hilum and cortical thickening. The findings were BI-RADS 4, suspicious, and biopsy was recommended. On 02/16/2020 she underwent biopsy of the right breast lesion at 1:00. Pathology showed grade 2 invasive ductal carcinoma and ductal carcinoma in situ, solid type, grade 3 with comedonecrosis. The breast prognostic profile showed ER +85% and OR positive at 90%. The tumor was positive for overexpression of HER-2/cathryn, 3+ by IHC with amplification ratio by FISH of 5.2 with 10.0 HER-2 copies/cell. The Ki-67 was borderline at 10%. On 03/14/2020 she underwent ultrasound-guided biopsy of the right axillary lymph node. Pathology showed reactive follicular hyperplasia. There was no malignancy identified. On 04/02/2020 she underwent right breast lumpectomy with axillary sentinel lymph node biopsy. The gross pathology described a chase-white lesion within the lumpectomy specimen measuring 1 x 1.2 x 0.8 cm. Microscopic examination showed grade 2 invasive ductal carcinoma measuring 2 mm in greatest dimension. The closest margin to invasive carcinoma was the superior margin measuring 4 mm. Grade 3 ductal carcinoma in situ was noted in 4 blocks. The closest margin to DCIS was also the superior margin measuring 2.8 mm. There was no involvement in 2 sentinel lymph nodes. Other pathologic findings included fibroadenoma, sclerosing adenosis, apocrine ADH and previous biopsy site changes. Her pathologic staging was pT1a, pN0. Mrs Garcia was referred to Dr Robles for further management of her ER OR positive breast cancer. She remains on apixaban for atrial fibrillation which is currently controlled. She has persistent/chronic sciatica and has some pain in the left hip and lower back which comes and goes. She states is no worse than her normal. She states she is just now gaining her energy back. She had Dr. Robles had discussed starting on aromatase inhibitor and she is here today for further discussion of that recommendation. She states she really does not want to pursue the aromatase inhibitor at this time. She states that she has done some research and some thinking since her last visit and is concerned about the side effects. She is also concerned about the risk versus the benefit. She states she is just trying to get her energy back after the loss of her and does not want to introduce any further medications at this time. She has no specific concerns but states she would like to take his last medicine as she can. She states her energy is even better now than it was at her last visit. She denies any appetite changes. She has had no shortness of breath orthopnea. She denies any new breast concerns. She denies any lower extremity edema. Her ECOG is 0. Past Medical History: Allergic rhinitis Atrial fibrillation History of sciatica Hypertension Past Surgical History: Cholecystectomy Colonoscopy Tubal ligation Right breast lumpectomy with axillary sentinel lymph node biopsy in 2019 Ultrasound directed biopsy of right axillary lymph node in 2019 Ultrasound directed biopsy of right breast in 2019 Allergies: adhesive tape Medications: Digoxin 1 Tablet (of 125 mcg) Oral daily Loratadine 1 Tablet (of 10 mg) Oral daily Losartan Potassium 1 Tablet (of 100 mg) Oral daily Metoprolol Tartrate 1 Tablet (of 100 mg) Oral b.i.d. oxyCODONE-Acetaminophen 1 Tablet (of 7.5-325 mg) Oral daily PRN Pantoprazole Sodium 1 Tablet (of 40 mg) Tablet, enteric coated Oral daily Xarelto 1 Tablet (of 20 mg) Oral daily Family History: Ms. Garcia's mother at age 86: colon cancer. Ms. Garcia's father at age 62: heart disease. Ms. Garcia has 2 sisters: 1 alive, 1 . Ms. Garcia's first sister's breast cancer. She has 1 maternal aunt who is : breast cancer. Father of heart disease at age 62. Mother of blood clot at age 86. She had heart disease and she also had colon cancer. A sister of breast cancer at age 46. A maternal aunt also had breast cancer at a young age-50. Social History: Ms. Garcia is . Ms. Garcia has never smoked. She has no history of drinking. She is a non-smoker. She has had just occasional alcohol use. Review Of Symptoms: Constitutional Denies fevers, chills, night sweats, excessive fatigue or weight loss. Allergic/Immunologic No reactions. Eyes Denies significant visual changes. No diplopia. No amaurosis. ENMT Denies changes in hearing, sore throat, mouth sores, difficulty or changes in swallowing ability, and/or sinus drainage. Hematologic/Lymphatic Denies easy bruising or bleeding. The patient denies any tender or palpable lymph nodes. Breasts no concerns. Respiratory Denies dyspnea on exertion, chest pain, cough or hemoptysis. Denies orthopnea. Cardiovascular Denies anginal chest pain, palpitations or orthopnea. Gastrointestinal Denies nausea, vomiting, diarrhea, GI bleeding, or constipation. Denies change in bowel habits and/or stool color, no heartburn or early satiety. Genitourinary (F) No hematuria, hesitancy, incontinence, vaginal bleeding, discharge or other problems with urination. Musculoskeletal Denies joint pain, swelling or redness. No decreased range of motion. Integumentary Denies chronic rashes, inflammation, ulcerations or skin changes. Neurologic Denies headache, blurred vision, and no areas of focal weakness or numbness. Normal gait. No sensory problems. Psychiatric Denies insomnia, depression, theodore or mood swings. Vital Signs: Performed on May 01, 2020 13:43 Height - 63.00 in Weight - 190.6 lbs (LOW) BSA - 1.89 sq.m BMI - 33.76 (HIGH) Temperature - 97.3 F (LOW) Pulse - 68 /min Respiration - 20 /min BP - 208/125 mm(hg) (HIGH) O2 Sat - 98 % Pain - 0,0 - Fully active, able to carry on all predisease activities without restrictions. (ECOG) Physical Examination: Constitutional Alert, oriented, no acute distress. Skin pink, warm and dry. Head Normocephalic; atraumatic. Back/Spine Non-tender to palpation. Extremities No visible deformities, no cyanosis, clubbing or edema. Musculoskeletal No tenderness or swelling, normal range of motion without obvious weakness. Integumentary No rashes or lesions. Neurologic No sensory or motor deficits, normal cerebellar function, normal gait. Psychiatric Alert and oriented times three. Coherent speech. Verbalizes understanding of our discussions today. Laboratory: Impression: 1. 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 Her tumor was reported to be ER/OR positive and HER-2/cathryn positive. 2. Her procedures included ultrasound guided biopsy of the right breast on 02/16/2020, ultrasound-guided biopsy of right axillary lymph node on 03/14/2020, and right breast lumpectomy with axillary sentinel lymph node biopsy on 04/02/2020. 3. There is family history of breast cancer affecting her sister and a maternal aunt. Her other medical illnesses include: 4. Hypertension. 5. Atrial fibrillation. 6. Allergic rhinitis. 7. She has a history of sciatica. The pathology findings and the clinic complications were reviewed with the patient per Dr Robles. 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 It is unclear from the pathology report the exact extent of the DCIS, but she does appear to have had a very small component of invasive cancer. Dr Robles had some reservation as to whether the breast prognostic profile was performed on an invasive cancer or DCIS, particularly with the HER-2/cathryn being positive-per his last office note. However, given the very small of invasive cancer, he did not recommend adjuvant chemotherapy. Mrs Garcia was referred to radiation oncology-Dr. Garcia for radiation oncology consultation. She reports he did not recommend radiation therapy at this time. Dr Robles had planned to give her adjuvant hormonal therapy when the radiation was completed. Mrs Garcia has opted to decline therapy with adjuvant hormonal therapy at this time. She states she has done research and thinking and is opted to not pursue that treatment at this time. Her big concern is decreased quality of life and side effects. Plan: 1. We will plan to proceed with Mrs. Garcia's decision NOT to seek adjuvant hormonal therapy at this time. She is aware that we will be glad to see her at any point whether she decides to pursue treatment or not. 2. Follow-up we will plan to see her back in 4-6 weeks for followup with Dr Robles for further discussion of possible adjuvant hormonal therapy. 3. Mrs Garcia was encouraged to contact us in interim should questions or problems arise. 4. We did discuss her [facility] diagnostic testing results. The result was negative. Genes analyzed included but not limited to ALK, BRCA1 BRCA2, CDK 4 MLH1, MSH2, MSH3, PALB2, T p53. For details please see her chart. A copy of this diagnostic testing results was given to Mrs. Garcia. 5. She continues to follow-up with Dr. Newell regarding her hypertension. She states her blood pressure is within her normal range today. She does see him again soon???within the first week or so after the new year. Signed By: Latricia Kapadia-, AOCNP Donny Robles MD <<Signature on File>>
== END 2020-05-17 23:59 | disposition home or self-care (01) ==
LOC: ONCMED 05:27
PROVIDERS: PCP Internal Medicine; Visit Provider Nurse Practitioner
DX: C50.211 Malignant neoplasm of upper-inner quadrant of right female breast (principal); I10 Essential (primary) hypertension; I48.91 Unspecified atrial fibrillation; J30.9 Allergic rhinitis, unspecified; Z87.39 Personal history of other diseases of the musculoskeletal system and connective tissue; Z79.899 Other long term (current) drug therapy
CPT/HCPCS: 36415; 99204; 99214

== ENCOUNTER 2020-06-06 13:30 | Outpatient (RCR) | payer MEDICARE, OTHER, SELFPAY ==
--- NOTE | 2020-06-10 18:09 | ONC FU_ITS ---
Dr. Robles Patient Follow-Up Note Patient: Ashley Garcia Unit #: [id number]: 1950 Dicatated By: Donny Robles M.D.Date of Visit:Jun 06, 2020 Onc Med Follow-up/Prog Note Chief Complaint: Breast cancer. 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 She had presented with abnormal screening mammogram. That study, from 12/29/2019, was BI-RADS 0. Findings included a 9 mm spiculated focal asymmetric density in the upper inner right breast. Additional mammographic views on 02/01/2020 showed stable spiculated asymmetric density in the right breast. Ultrasound at that time showed a hypoechoic solid-appearing lesion with irregular measuring 1.9 x 0.9 x 1.2 cm. A 2.0 x 2.5 x 1.3 cm lymph node in the right axilla showed loss of normal fatty hilum and cortical thickening. The findings were BI-RADS 4, suspicious, and biopsy was recommended. On 02/16/2020 she underwent biopsy of the right breast lesion at 1:00. Pathology showed grade 2 invasive ductal carcinoma and ductal carcinoma in situ, solid type, grade 3 with comedonecrosis. The breast prognostic profile showed ER +85% and OR positive at 90%. The tumor was positive for overexpression of HER-2/cathryn, 3+ by IHC with amplification ratio by FISH of 5.2 with 10.0 HER-2 copies/cell. The Ki-67 was borderline at 10%. On 03/14/2020 she underwent ultrasound-guided biopsy of the right axillary lymph node. Pathology showed reactive follicular hyperplasia. There was no malignancy identified. On 04/02/2020 she underwent right breast lumpectomy with axillary sentinel lymph node biopsy. The gross pathology described a chase-white lesion within the lumpectomy specimen measuring 1 x 1.2 x 0.8 cm. Microscopic examination showed grade 2 invasive ductal carcinoma measuring 2 mm in greatest dimension. The closest margin to invasive carcinoma was the superior margin measuring 4 mm. Grade 3 ductal carcinoma in situ was noted in 4 blocks. The closest margin to DCIS was also the superior margin measuring 2.8 mm. There was no involvement in 2 sentinel lymph nodes. Other pathologic findings included fibroadenoma, sclerosing adenosis, apocrine ADH and previous biopsy site changes. Her pathologic staging was pT1a, pN0. I had seen her initially on 04/17/2020. With node negative, T1a disease, adjuvant chemotherapy would not have been indicated, and Oncotype DX would also not have been indicated, per NCCN guidelines. In view of the small component of invasive cancer, I felt that it was likely that the HER-2/cathryn results may have not have been accurate, and may have just reflected the in situ component rather than the invasive component of the tumor. At that time, I had recommended that she have adjuvant hormonal therapy I also recommended that she see the radiation oncologist to discuss radiation. She did see Dr. Garcia on 04/23/2020 and after discussion with him, she opted not to take radiation. She then had a follow-up visit to discuss the adjuvant hormonal therapy. Given the low risk of recurrence with T1a disease, she had also opted against the adjuvant hormonal therapy. She is seen now for further discussion regarding management of her breast cancer. Medications: Digoxin 1 Tablet (of 125 mcg) Oral daily, Furosemide 1 Tablet (of 40 mg) Oral daily, Loratadine 1 Tablet (of 10 mg) Oral daily, Losartan Potassium 1 Tablet (of 100 mg) Oral daily, Metoprolol Tartrate 1 Tablet (of 100 mg) Oral b.i.d., oxyCODONE-Acetaminophen 1 Tablet (of 7.5-325 mg) Oral daily PRN, Pantoprazole Sodium 1 Tablet (of 40 mg) Tablet, enteric coated Oral daily, Xarelto 1 Tablet (of 20 mg) Oral daily Allergies: adhesive tape Vital Signs: Performed on Jun 06, 2020 14:55 Height - 63.00 in Weight - 195.4 lbs (HIGH) BSA - 1.91 sq.m BMI - 34.61 (HIGH) Temperature - 97.6 F (LOW) Pulse - 81 /min Respiration - 17 /min BP - 205/125 mm(hg) (HIGH) O2 Sat - 97 % Pain - 0 Problem List: 1. 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 Her tumor was reported to be ER/OR positive and HER-2/cathryn positive. 2. Her procedures included ultrasound guided biopsy of the right breast on 02/16/2020, ultrasound-guided biopsy of right axillary lymph node on 03/14/2020, and right breast lumpectomy with axillary sentinel lymph node biopsy on 04/02/2020. 3. Hypertension. 4. Atrial fibrillation. 5. Allergic rhinitis. 6. She has a history of sciatica. 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 Her tumor was reported to be ER/OR positive and HER-2/cathryn positive. She underwent ultrasound guided biopsy of the right breast on 02/16/2020, ultrasound-guided biopsy of right axillary lymph node on 03/14/2020, and right breast lumpectomy with axillary sentinel lymph node biopsy on 04/02/2020. I had my initial visit with her I had recommended adjuvant hormonal therapy and also recommended that she see the radiation oncologist to discuss radiation to the right breast. She did see Dr. Garcia on 04/23/2020, and she opted not to take radiation. She then had further discussion regarding the adjuvant hormonal therapy, and in view of the low risk of recurrence with a T1a primary tumor, she then opted not to take the adjuvant hormonal therapy. I have since then reviewed the pathology with Dr. Joyner and I have had further discussions with Dr. Garcia regarding her breast cancer management. My concern is the fact that we really do not have data to support lumpectomy alone as a management for invasive breast cancer, and Dr. Garcia had indicated that he is also not comfortable with that approach, as the data to support the omission of radiation was based on the outcome of patients who were given adjuvant hormonal therapy. In my further discussions with Dr. Joyner, it does appear that the invasive component of the cancer was very small, both on the initial biopsies and the lumpectomy specimen, so that it is likely that the reported HER-2/cathryn overexpression is inaccurate. However, if she does not want to take the radiation, I I think she definitely should have adjuvant hormonal therapy, and she is recommended to begin treatment with anastrozole 1 mg daily. She is aware that it does have the risk to cause or worsen osteoporosis and that it also may be a cause musculoskeletal pain as a side effect. She will need baseline assessment of bone health, and she will be scheduled for follow-up visit in 3 months. Signed By: Donny Robles M.D. <<Signature on File>>
== END 2020-06-17 23:59 | disposition home or self-care (01) ==
LOC: ONCMED 13:30
PROVIDERS: PCP Internal Medicine; Visit Provider Internal Medicine Medical Oncology
DX: C50.211 Malignant neoplasm of upper-inner quadrant of right female breast (principal); D05.11 Intraductal carcinoma in situ of right breast; Z17.0 Estrogen receptor positive status [ER+]; I10 Essential (primary) hypertension; I48.91 Unspecified atrial fibrillation; J30.9 Allergic rhinitis, unspecified; M54.32 Sciatica, left side; M54.31 Sciatica, right side; Z79.811 Long term (current) use of aromatase inhibitors
CPT/HCPCS: 99214

== ENCOUNTER 2020-07-10 14:55 | Outpatient (CLI) | payer MEDICARE, OTHER, SELFPAY ==
--- NOTE | 2020-07-10 15:09 | XR_ITS ---
WS: [id number] DEXA (DUAL ENERGY X-RAY ABSORPTIOMETRY) Bone mineral density was performed using a [employer] machine. HISTORY: POSTMENOPAUSAL, aromatase INHIBITOR USE, BREAST CANCER COMPARISON: None available. Lumbar spine BMD (L1-L4): 1.036 g/cm2 T score: -1.2 Z score: -0.1 Total hip BMD: Left: 0.779 g/cm2. T score: -1.8 Z score: -0.8 Right: 0.819 g/cm2. T score: -1.5 Z score: -0.4 10 year probability of a major osteoporotic fracture is 19.3%. XR/XR DEXA axial skeleton* 22767 IMPRESSION: OSTEOPENIA based upon the WHO classification for females.
== END 2020-07-10 14:56 | disposition home or self-care (01) ==
LOC: RADWPI 14:59
PROVIDERS: PCP Internal Medicine; Visit Provider Internal Medicine Medical Oncology
DX: Z78.0 Asymptomatic menopausal state (principal); M85.88 Other specified disorders of bone density and structure, other site
CPT/HCPCS: 77080

== ENCOUNTER 2020-08-20 15:26 | Outpatient (CLI) | payer MEDICARE, OTHER, SELFPAY ==
[2020-08-20 16:55] LABS: Basophils # 0.1 10^3/uL (0.0-0.1); Basophils % 0.8 %; Eosinophils # 0.1 10^3/uL (0.0-0.8); Hematocrit 38.7 % (37.0-47.0); Hemoglobin 12.6 g/dL (11.5-15.3); Lymphocytes # 2.3 10^3/uL (0.8-4.8); Lymphocytes % 27.9 %; Mean Corpuscular HGB Conc 32.6 g/dL (30.0-36.0); Mean Corpuscular Hemoglobin 31.3 pg (28.0-34.0); Mean Corpuscular Volume 96.3 fL (81-99); Mean Platelet Volume 11.5 fL (7.4-10.4); Monocytes # 0.6 10^3/uL (0.2-0.9); Monocytes % 7.6 %; Neutrophils # 5.15 10^3/uL (1.8-7.7); Neutrophils % 62.3 %; Nucleated Red Blood Cells % 0 %; Platelet Count 279 10^3/cmm (130-400); Red Blood Count 4.02 10^6/uL (4.1-5.3); Red Cell Distribution Width 13.2 % (12.1-15.1); White Blood Count 8.3 10^3/uL (4.0-10.0)
[2020-08-20 21:45] LABS: 25 Hydroxy Vitamin D 14 ng/mL (30-100); Alanine Aminotransferase 20 U/L (0-33); Albumin Level 3.9 g/dL (3.5-5.2); Alkaline Phosphatase 137 IU/L (35-105); Aspartate Amino Transferase 21 U/L (0-32); Blood Urea Nitrogen 9 mg/dL (8-23); Carbon Dioxide 30 mmol/L (22-29); Globulin 3.1 g/dL (1.3-4.6); Glomerular Filtration Rate 70.9 mL/min (90-130); Glucose 101 mg/dL (65-115); Total Bilirubin 0.7 mg/dL (0.15-1.2)
[2020-08-20 22:02] LABS: Anion Gap 12.3 (5-19); Chloride 96 mmol/L (98-107); Osmolality Calculated 279 mOsm/kg (285-295); Potassium 3.3 mmol/L (3.5-5.1); Sodium 135 mmol/L (136-145)
--- NOTE | 2020-08-24 07:21 | ONC FU_ITS ---
Dr. Robles Patient Follow-Up Note Patient: Ashley Garcia Unit #: [id number]: 1950 Dicatated By: Donny Robles M.D.Date of Visit:Aug 20, 2020 Onc Med Follow-up/Prog Note Chief Complaint: Breast cancer. 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 She had presented with abnormal screening mammogram. That study, from 12/29/2019, was BI-RADS 0. Findings included a 9 mm spiculated focal asymmetric density in the upper inner right breast. Additional mammographic views on 02/01/2020 showed stable spiculated asymmetric density in the right breast. Ultrasound at that time showed a hypoechoic solid-appearing lesion with irregular measuring 1.9 x 0.9 x 1.2 cm. A 2.0 x 2.5 x 1.3 cm lymph node in the right axilla showed loss of normal fatty hilum and cortical thickening. The findings were BI-RADS 4, suspicious, and biopsy was recommended. On 02/16/2020 she underwent biopsy of the right breast lesion at 1:00. Pathology showed grade 2 invasive ductal carcinoma and ductal carcinoma in situ, solid type, grade 3 with comedonecrosis. The breast prognostic profile showed ER +85% and [place] positive at 90%. The tumor was positive for overexpression of HER-2/cathryn, 3+ by IHC with amplification ratio by FISH of 5.2 with 10.0 HER-2 copies/cell. The Ki-67 was borderline at 10%. On 03/14/2020 she underwent ultrasound-guided biopsy of the right axillary lymph node. Pathology showed reactive follicular hyperplasia. There was no malignancy identified. On 04/02/2020 she underwent right breast lumpectomy with axillary sentinel lymph node biopsy. The gross pathology described a chase-white lesion within the lumpectomy specimen measuring 1 x 1.2 x 0.8 cm. Microscopic examination showed grade 2 invasive ductal carcinoma measuring 2 mm in greatest dimension. The closest margin to invasive carcinoma was the superior margin measuring 4 mm. Grade 3 ductal carcinoma in situ was noted in 4 blocks. The closest margin to DCIS was also the superior margin measuring 2.8 mm. There was no involvement in 2 sentinel lymph nodes. Other pathologic findings included fibroadenoma, sclerosing adenosis, apocrine ADH and previous biopsy site changes. Her pathologic staging was pT1a, pN0. I had seen her initially on 04/17/2020. With node negative, T1a disease, adjuvant chemotherapy would not have been indicated, and Oncotype DX would also not have been indicated, per NCCN guidelines. In view of the small component of invasive cancer, I felt that it was likely that the HER-2/cathryn results may have not have been accurate, and may have just reflected the in situ component rather than the invasive component of the tumor. At that time, I had recommended that she have adjuvant hormonal therapy I also recommended that she see the radiation oncologist to discuss radiation. She had seen Dr. Garcia for radiaton oncology consultation on 04/23/2020 and after discussion with him, she opted not to take radiation. She then had a follow-up visit to discuss the adjuvant hormonal therapy. Given the low risk of recurrence with T1a disease, she had initially opted against the adjuvant hormonal therapy. I had further discussion with her at her follow-up visit in May 2020, at that point she did agree to the adjuvant hormonal therapy, as both Dr. Garcia and I were very uncomfortable with her treatment being limited to lumpectomy alone. She has not yet started treatment, though. Her baseline DEXA scan on 07/10/2020 showed osteopenia with T score -1.2 in the lumbar spine, -1.8 in the left hip, and -1.5 in the right hip. She is seen for a follow-up visit. She has been feeling a little tired, but she is starting to walk more. She has been having pain in her lower back and in her left leg down to her foot. She also has some numbness in her left leg. She has had occasional episodes like this during the past 5 years. She has good appetite, but she is trying to lose weight. She does not have fever, night sweats, or hot flashes. She has some post nasal drip and cough, attributable to allergies. Her cough, though, is getting better. She does not complain of shortness of breath or chest pain. She has no GI or complaints. She has no other joint or bone pain, she does complain that her feet occasionally cramp at night. She does not complain of headache. She occasionally has dizziness. She has no other focal neurologic symptoms. Medications: Digoxin 1 Tablet (of 125 mcg) Oral daily, Furosemide 1 Tablet (of 40 mg) Oral daily, Loratadine 1 Tablet (of 10 mg) Oral daily, Losartan Potassium 1 Tablet (of 100 mg) Oral daily, Metoprolol Tartrate 1 Tablet (of 100 mg) Oral b.i.d., oxyCODONE-Acetaminophen 1 Tablet (of 7.5-325 mg) Oral daily PRN, Pantoprazole Sodium 1 Tablet (of 40 mg) Tablet, enteric coated Oral daily, Xarelto 1 Tablet (of 20 mg) Oral daily Allergies: adhesive tape Vital Signs: Performed on Aug 20, 2020 15:57 Height - 63.00 in Weight - 188.2 lbs (LOW) BSA - 1.88 sq.m BMI - 33.34 (HIGH) Temperature - 97.8 F (LOW) Pulse - 87 /min Respiration - 18 /min BP - 159/95 mm(hg) (HIGH) O2 Sat - 98 % Pain - 0 Fatigue - 7 Physical Examination: Constitutional - She looks good generally, Eyes - Sclerae nonicteric. Conjunctivae clear, ENMT - No lesions noted in the oral cavity, Hematologic/Lymphatic - No cervical, clavicular, or axillary adenopathy, Respiratory - Lungs are clear with good air movement bilaterally, Cardiovascular - Heart rhythm is a little irregular. There is no murmur, gallop, or rub noted, Abdomen - Soft. Liver and spleen are not enlarged. There is no abdominal mass or ascites noted and there is no inguinal adenopathy, Extremities - Slight edema, Neurologic - No focal neurologic deficits noted. Lab/Imaging: Test performed on Aug 20, 2020 16:30 Sodium 135 mmol/L Vitamin D (25-Hydroxy), Total 14 ng/mL Potassium 3.3 mmol/L Chloride 96 mmol/L CO2 30 mmol/L Anion Gap 12.3 BUN 9 mg/dL Creatinine 0.8 mg/dL Cr Clearance (Est) 88.1800 mL/min eGFR 70.9 mL/min Glucose 101 mg/dL Osmolality - Calculated 279 mOsm/kg Calcium 9.0 mg/dL Protein, Total 7.0 g/dL Albumin 3.9 g/dL Globulin 3.1 g/dL Bilirubin, Total 0.7 mg/dL ALT (SGPT) 20 U/L AST (SGOT) 21 U/L Alkaline Phosphatase 137 IU/L WBC 8.3 10 3/uL RBC 4.02 10 6/uL HGB 12.6 g/dL HCT 38.7 % MCV 96.3 fL MCH 31.3 pg MCHC 32.6 g/dL RDW 13.2 % Platelet Count 279 10 3/cmm MPV 11.5 fL Neutrophils 5.15 10 3/uL Lymphocytes 2.3 10 3/uL Monocytes 0.6 10 3/uL Eosinophils 0.1 10 3/uL Basophils 0.1 10 3/uL Neutrophil % 62.3 % Lymphocyte % 27.9 % Monocyte % 7.6 % Eosinophil % 1.0 % Basophils % 0.8 % NRBC % 0 % Problem List: 1. 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 Her tumor was reported to be ER/NY positive and HER-2/cathryn positive. 2. Her procedures included ultrasound guided biopsy of the right breast on 02/16/2020, ultrasound-guided biopsy of right axillary lymph node on 03/14/2020, and right breast lumpectomy with axillary sentinel lymph node biopsy on 04/02/2020. 3. Hypertension. 4. Atrial fibrillation. 5. Allergic rhinitis. 6. She has a history of sciatica. Problems Addressed with this Encounter and Plan: 1. 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 Her tumor was reported to be ER/NY positive and HER-2/cathryn positive. She underwent ultrasound guided biopsy of the right breast on 02/16/2020, ultrasound-guided biopsy of right axillary lymph node on 03/14/2020, and right breast lumpectomy with axillary sentinel lymph node biopsy on 04/02/2020. I had my initial visit with her I had recommended adjuvant hormonal therapy and also recommended that she see the radiation oncologist to discuss radiation to the right breast. She did see Dr. Garcia on 04/23/2020, and she opted not to take radiation. She had initially declined but ultimately agreed to adjuvant hormonal therapy, though she has not yet started treatment. She will now begin adjuvant endocrine therapy with anastrozole 1 mg daily for 5 years. I reviewed anticipated side effects including the potential for worsening of osteopenia/osteoporosis and for musculoskeletal pain, among others. She is aware that she needs to call if she develops significant joint pain. I will otherwise plan a follow-up visit in 3 months. 2. She has evidence of osteopenia on her baseline bone density study. She is recommended to also have treatment for bone health, and I will have her start treatment with Prolia, subject to verification of insurance coverage. 3. She has recently developed radicular pain in the lower back/left leg. This has been an intermittent problem for her over the past 5 years. She will be given a prescription for oxycodone 7.5/APAP for short-term use. She will have further evaluation as indicated. Signed By: Donny Robles M.D. <<Signature on File>>
== END 2020-08-20 15:27 | disposition home or self-care (01) ==
PROVIDERS: PCP Internal Medicine; Visit Provider Internal Medicine Medical Oncology
DX: C50.811 Malignant neoplasm of overlapping sites of right female breast (principal); Z17.0 Estrogen receptor positive status [ER+]; D05.11 Intraductal carcinoma in situ of right breast; I10 Essential (primary) hypertension; I48.20 Chronic atrial fibrillation, unspecified; J30.9 Allergic rhinitis, unspecified; M81.0 Age-related osteoporosis without current pathological fracture; M54.32 Sciatica, left side; M54.31 Sciatica, right side; Z79.899 Other long term (current) drug therapy; Z79.811 Long term (current) use of aromatase inhibitors
CPT/HCPCS: 80053; 82306; 85025; 99214

== ENCOUNTER 2020-09-06 14:48 | Outpatient (CLI) | payer MEDICARE, OTHER, SELFPAY ==
[2020-09-06] MEDS: denosumab 60 mg SDV SUBCUT (15:30)
== END 2020-09-06 14:49 | disposition home or self-care (01) ==
PROVIDERS: PCP Internal Medicine; Visit Provider Internal Medicine Medical Oncology
DX: M81.0 Age-related osteoporosis without current pathological fracture (principal); M85.80 Other specified disorders of bone density and structure, unspecified site
CPT/HCPCS: 96372; J0897

== ENCOUNTER 2020-10-30 18:06 | Inpatient (IN) | payer MEDICARE, OTHER, SELFPAY ==
[2020-10-30 18:36] VITALS: BP 146/99; PULSE 93; RESP 18; TEMP 36.6; O2SAT 96; BMI 33.6
--- NOTE | 2020-10-30 20:24 | XRR_ITS ---
PROCEDURE INFORMATION: Exam: XR Chest Exam date and time: 10/30/2020 8:24 PM Age: 69 years old Clinical indication: Shortness of breath; Prior surgery; Surgery type: Lumpectomy; Patient HX: SOB. History of breast cancer. ; Additional info: Reduced breath sounds TECHNIQUE: Imaging protocol: XR of the chest. Views: 1 view. COMPARISON: No relevant prior studies available. FINDINGS: Lungs: Lungs are clear bilaterally. Pleural spaces: No pleural effusion. No pneumothorax. Heart/Mediastinum: Cardiac silhouette is moderately enlarged. Mediastinal contours are unremarkable. Vasculature: The aorta is tortuous. Bones/joints: Unremarkable for age. XR/XR chest 1V portable [id number] IMPRESSION: 1. No acute cardiopulmonary process. 2. Incidental/nonacute findings are listed in the report.
--- NOTE | 2020-10-30 20:24 | CTR_ITS ---
PROCEDURE INFORMATION: Exam: CT Head Without Contrast Exam date and time: 10/30/2020 8:24 PM Age: 69 years old Clinical indication: Pain; Patient HX: Headache with dizziness. History of vertigo and afib. Breast cancer. ; Additional info: Severe dizziness TECHNIQUE: Imaging protocol: Computed tomography of the head without contrast. Sagittal and coronal reformatted images were created and reviewed. Radiation optimization: All CT scans at this facility use at least one of these dose optimization techniques: automated exposure control; mA and/or kV adjustment per patient size (includes targeted exams where dose is matched to clinical indication); or iterative reconstruction. COMPARISON: No relevant prior studies available. RADIATION DOSE METRICS: Total DLP (mGy-cm): 759.73 FINDINGS: Brain: No acute intracranial hemorrhage. No acute infarct. No intra-axial or extra-axial masses. Morrison-white matter differentiation is preserved. No cerebral edema. No extra-axial fluid collections. No midline shift. No evidence for Chiari 1 malformation. Mild atrophy of the brain parenchyma. Mildly decreased attenuation in the deep white matter, consistent with mild chronic microangiopathic change. Cerebral ventricles: No hydrocephalus. Paranasal sinuses: Mild mucoperiosteal thickening in the visualized right maxillary sinus. Mastoid air cells: Small amount of fluid in the right and left mastoid air cells. Orbital cavity: No acute abnormality in the visualized orbits. Vasculature: Atherosclerotic changes in the visualized arteries. Bones/joints: No acute fracture. Soft tissues: No acute abnormality of the extracranial soft tissues. CT/CT head wo con* [id number] IMPRESSION: 1. No acute abnormality of the brain. 2. Mild atrophy of the brain parenchyma. 3. Mild chronic white matter microangiopathic change. 4. Small amount of fluid in the right and left mastoid air cells. 5. Incidental/nonacute findings are listed in the report. Radiation Dose CTDIVOL = (mGy): DLP = 759.73 (mGy-cm)
--- NOTE | 2020-10-30 20:26 | ECG_ITS ---
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 Measurements Intervals [place] Rate: 111 P: DC: QRS: 30 QRSD: 120 T: 88 QT: 317 QTc: 432 Interpretive Statements ATRIAL FIBRILLATION WITH RAPID VENTRICULAR RESPONSE POSSIBLE RIGHT VENTRICULAR CONDUCTION DELAY [RSR (QR) IN V1/V2] ST DEVIATION AND MARKED T-WAVE ABNORMALITY, CONSIDER ANTEROLATERAL ISCHEMIA [-0.5+ mV T WAVE IN I/aVL/V3-V6] Compared to ECG 09/22/2016 05:27:24 T-wave abnormality now present Possible ischemia now present Sinus rhythm no longer present Electronically Signed On 10-31-2020 17:43:31 CDT by Anna Yoo M.D. [id number]
[2020-10-30] MEDS: meclizine 25 mg tablet 50 MG PO (20:54)
[2020-10-30] MEDS: ondansetron 2 mg/ML SDV 2 mL 4 MG IVP (21:28)
[2020-10-30] MEDS: sodium chloride 0.9% 1,000 ML 999 ML IV (21:29)
[2020-10-30 21:41] LABS: Basophils % 0.4 %; Hematocrit 38.4 % (37.0-47.0); Hemoglobin 12.8 g/dL (11.5-15.3); Lymphocytes # 0.7 10^3/uL (0.8-4.8); Lymphocytes % 7.1 %; Mean Corpuscular HGB Conc 33.3 g/dL (30.0-36.0); Mean Corpuscular Hemoglobin 30.9 pg (28.0-34.0); Mean Corpuscular Volume 92.8 fL (81-99); Mean Platelet Volume 11.1 fL (7.4-10.4); Monocytes # 0.2 10^3/uL (0.2-0.9); Monocytes % 2.1 %; Neutrophils # 8.69 10^3/uL (1.8-7.7); Nucleated Red Blood Cells % 0 %; Platelet Count 276 10^3/cmm (130-400); Red Blood Count 4.14 10^6/uL (4.1-5.3); Red Cell Distribution Width 13.3 % (12.1-15.1); White Blood Count 9.7 10^3/uL (4.0-10.0)
[2020-10-30 21:58] LABS: Troponin(5th) Baseline 8 ng/L (0-10)
[2020-10-30 22:01] LABS: Alanine Aminotransferase 24 U/L (0-33); Albumin Level 4.4 g/dL (3.5-5.2); Alkaline Phosphatase 99 IU/L (35-105); Anion Gap 19.1 (5-19); Aspartate Amino Transferase 23 U/L (0-32); Blood Urea Nitrogen 10 mg/dL (8-23); Calcium 8.9 mg/dL (8.5-10.5); Carbon Dioxide 25 mmol/L (22-29); Chloride 98 mmol/L (98-107); Globulin 2.8 g/dL (1.3-4.6); Glomerular Filtration Rate 98.8 mL/min (90-130); Glucose 151 mg/dL (65-115); Osmolality Calculated 290 mOsm/kg (285-295); Potassium 3.1 mmol/L (3.5-5.1); Sodium 139 mmol/L (136-145); Total Bilirubin 0.7 mg/dL (0.15-1.2); Total Protein 7.2 g/dL (6.6-8.7)
--- NOTE | 2020-10-30 22:03 | ED_ITS ---
HPI - Dizziness General: Chief Complaint: Dizziness Stated Complaint: PT STATES TROUBLE WITH VERTIGO Time Seen by Provider: 10/30/20 20:17 History of Present Illness: HPI Narrative: The patient is a 69-year-old female who complains about 2 PM today she started to feel severely dizzy. Like the room is spinning around her. She says she took a meclizine at home which did not help. She is never had symptoms like this before. She has atrial fibrillation and takes Xarelto for this chronically. She has never had a stroke before but is worried this could be a stroke. When she is still she is closing her eyes and refuses to open them because she gets dizzy. If she has her eyes closed and does not move she is not dizzy but if she opens her eyes or moves at all she becomes severely dizzy. She has not had positional vertigo before. She has vomiting on arrival multiple times. Denies recent injury. MD elicited complaint: dizziness and vertigo Timing: sudden onset Severity: severe Description: room spinning and off-balance Context: change in body position History of similar symptoms: No Exacerbating factors: movement/ambulation and change in body position Relieving factors: keeping eyes closed Associated symptoms: Reports nausea and vomiting; Denies chest pain, headache(s), nasal congestion or palpitations Associated neuro symptoms: Deny confusion or numbness in extremities Review of Systems General: Reports: 10 or more systems reviewed and unremarkable except in HPI and below Const: Denies: fatigue Eyes: Denies: change in vision, blurry vision or eye redness ENMT: Denies: throat pain, swelling of lips/tongue, ear or mastoid pain or nasal congestion Card: Denies: chest pain, palpitations, irregular heart rhythm, edema, dyspnea on exertion or orthopnea Resp: Denies: dyspnea, productive cough or non-productive cough GI: Reports: nausea and vomiting; Denies: abdominal pain, diarrhea or GI cramping : Denies: flank pain, difficulty voiding, urinary frequency or urinary ur gency Musc: Denies: neck pain, back pain, extremity pain, joint pain, joint redness, limited range of motion or muscle weakness Skin/Breast: Denies: rash, pruritus, erythema, skin pain or skin tenderness Neuro: Reports: dizziness and vertigo; Denies: headache(s), numbness in extremities, weakness in extremities, sensory changes, difficulty walking, confusion or Slurred speech present Psych: Denies: anxiety or depression Endo: Denies: polyuria All/Imm: Denies: urticaria, throat swelling or tongue swelling PFSH ED PFSH: Medical History Atrial fibrillation Hypertension Surgical History History of tubal ligation Family History Other CAD (coronary artery disease) Cancer Hypertension Social History Smoking and tobacco status: never smoked Physical Exam Narrative: EXAM NARRATIVE: Severe dizziness and vomiting on arrival. Slight horizontal nystagmus when her eyes are forced open. Const: COMMON NORMALS: no acute distress, average body habitus, patient oriented x3, no limitations, healthy appearing, alert and well nourished GENERAL APPEARANCE: cooperative, comfortable, well kempt and well developed ORIENTATION/CONSCIOUSNESS: Yes awake, Yes oriented to person, Yes oriented to place and Yes oriented to time HENMT: COMMON NORMALS: normocephalic, external ears normal and Normal external nose present HEAD & SCALP: normal to inspection and normocephalic NOSE: Normal external nose present EXTERNAL EAR: Yes external ears normal MOUTH: Normal oral and palatal mucosa present THROAT: posterior oropharynx normal Eye: COMMON NORMALS: Equal, round and reactive pupils present and EOMs intact bilaterally GENERAL EYE: appearance normal, both eyes and all related structures PUPIL: Yes Equal, round and reactive pupils present OTHER: Slight horizontal nystagmus present Neck/C-Spine: COMMON NORMALS: full ROM, no lymphadenopathy, no meningeal signs and no JVD GENERAL: Yes normal visual inspection Lymph: LYMPHATIC: no lymphadenopathy noted Chest: COMMONS NORMALS: normal inspection of the chest and normal palpation of entire chest wall Resp: COMMON NORMALS: normal respiratory effort, No retractions, No use of accessory muscles, clear to auscultation bilaterally and percussion normal EFFORT & INSPECTION: Yes able to speak in complete sentences AUSCULTATION: clear to auscultation bilaterally PERCUSSION: percussion normal Cardio: COMMON NORMALS: no JVD, regular rate, regular rhythm, S1 normal heart sound present, S2 normal heart sound present and Peripheral pulses 2+ throughout RATE: regular rate RHYTHM: regular rhythm HEART SOUNDS: S1 normal heart sound present and S2 normal heart sound present PERIPHERAL PULSES: Peripheral pulses 2+ throughout GI: COMMON NORMALS: Normal to inspection, nondistended, normoactive bowel sounds present, Soft to palpation, non-tender and no masses INSPECTION: Yes normal to inspection PALPATION: Yes Soft to palpation : COMMON NORMALS: Yes no CVA tenderness BLADDER/KIDNEY EXAM: Yes no CVA tenderness Back/Pelvis: COMMON NORMALS: no CVA tenderness, thoracic and lumbar spine normal to inspection, no thoracic nor lumbar tenderness and thoraco-lumbar ROM normal Extremity: COMMON NORMALS: normal to inspection, full ROM, capillary refill normal, no joint enlargement and no pedal edema GENERAL: Yes normal exam except as noted Neuro: COMMON NORMALS: patient oriented x3, CN's II-XII intact bilaterally, moves all extremities, no focal motor deficits, no sensory deficits noted and gait normal SENSORIUM/ORIENTATION: Yes alert, Yes oriented to person, Yes oriented to place and Yes oriented to time MENINGEAL SIGNS: Yes no meningeal signs Psych: COMMON NORMALS: mental status grossly normal, Normal thought process present, cooperative, normal affect and speech normal APPEARANCE: Yes well kempt ATTITUDE: Yes calm SPEECH: Yes normal speech THOUGHT PROCESS: No rmal thought process present Skin: COMMON NORMALS: no rashes or lesions noted GENERAL SKIN EXAM: no rashes or lesions noted Course Vital Signs: Vital signs: Vital Signs Temperature 97.8 F 10/30/20 18:36 Pulse Rate 93 10/30/20 18:36 Respiratory Rate 18 10/30/20 18:36 Blood Pressure 146/99 10/30/20 18:36 Pulse Oximetry 96 10/30/20 18:36 MDM - Dizziness MDM Narrative: Medical decision making narrative: The patient comes in with severe positional vertigo. She is forcing her eyes closed because if she opens them or moves at all she becomes severely dizzy and vomits. Head CT negative for acute stroke. She was given Zofran and meclizine with no improvement of her symptoms. Likely positional vertigo however her symptoms are severe and she will not do well at home because she will continue to vomit. Discussed with Dr. Mckeon who accepts for observation. Lab Data: Labs: Lab Results 10/30/20 10/30/20 10/30/20 Range/Units 21:25 21:25 21:25 WBC 9.7 (4.0-10.0) 10^3/ uL RBC 4.14 (4.1-5.3) 10^6/u L Hgb 12.8 (11.5-15.3) g/dL Hct 38.4 (37.0-47.0) % MCV 92.8 (81-99) fL MCH 30.9 (28.0-34.0) pg MCHC 33.3 (30.0-36.0) g/dL RDW 13.3 (12.1-15.1) % Plt Count 276 (130-400) 10^3/c mm MPV 11.1 H (7.4-10.4) fL Neut % (Auto) 90.0 % Lymph % (Auto) 7.1 % Bertie % (Auto) 2.1 % Eos % (Auto) 0.0 % Baso % (Auto) 0.4 % Neut # (Auto) 8.69 H (1.8-7.7) 10^3/u L Lymph # (Auto) 0.7 L (0.8-4.8) 10^3/u L Bertie # (Auto) 0.2 (0.2-0.9) 10^3/u L Eos # (Auto) 0.0 (0.0-0.8) 10^3/u L Baso # (Auto) 0.0 (0.0-0.1) 10^3/u L Nucleated RBC % (a uto) 0 % Nucleated RBCs # 0.0 /100WBC Sodium 139 (136-145) mmol/L Chloride 98 (98-107) mmol/L Carbon Dioxide 25 (22-29) mmol/L BUN 10 (8-23) mg/dL Creatinine 0.6 (0.5-0.9) mg/dL GFR Calculation 98.8 (90-130) mL/min Calculated Osmolal ity 290 (285-295) mOsm/k g Calcium 8.9 (8.5-10.5) mg/dL Total Bilirubin 0.7 (0.15-1.2) mg/dL AST 23 (0-32) U/L ALT 24 (0-33) U/L Alkaline Phosphata se 99 (35-105) IU/L Troponin T Baselin e 8 (0-10) ng/L Total Protein 7.2 (6.6-8.7) g/dL Albumin 4.4 (3.5-5.2) g/dL Globulin 2.8 (1.3-4.6) g/dL Discharge Plan Discharge Patient Disposition: Placed in Observation Clinical Impression: BPV (benign positional vertigo) Coding Level of Care Code ED Senior Teller for Anne Vivar
[2020-10-30] MEDS: potassium chloride ER 20 mEq Tablet 40 MEQ PO (22:35)
--- NOTE | 2020-10-30 22:41 | PC.NURSE ---
Assisted onto bedside toilet. Continued dizziness is better . Pt prefers to keep her eyes closed, which decreases the dizziness. Daughter in room.
[2020-10-30 22:45] VITALS: BP 145/77; PULSE 84; RESP 18; O2SAT 99
--- NOTE | 2020-10-30 22:57 | ECG_ITS ---
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 Measurements Intervals [place] Rate: 89 P: AR: QRS: -3 QRSD: 112 T: 61 QT: 371 QTc: 452 Interpretive Statements ATRIAL FIBRILLATION WITH ABERRANT CONDUCTION OR VENTRICULAR PREMATURE COMPLEXES INCOMPLETE RIGHT BUNDLE BRANCH BLOCK [90+ ms QRS DURATION, TERMINAL R IN V1/V2, 40+ ms S IN I/aVL/V4/V5/V6] MODERATE ST DEPRESSION [0.05+ mV ST DEPRESSION] Compared to ECG 10/30/2020 20:53:05 Ventricular premature complex(es) now present Aberrant conduction of supraventricular beat(s) now present Incomplete right bundle-branch block now present ST (T wave) deviation now present T-wave abnormality no longer present Possible ischemia no longer present Electronically Signed On 10-31-2020 17:49:20 CDT by Anna Yoo M.D. [id number]
[2020-10-30 23:25] VITALS: BP 142/76; PULSE 85; RESP 18; O2SAT 99
[2020-10-30 23:33] LABS: Troponin 5 2HR 8.69 ng/L (0-10); Troponin 5 2HR Delta 0.69 ABS# (0-10)
[2020-10-30 23:50] VITALS: BP 149/94; PULSE 98; RESP 18; TEMP 36.3; O2SAT 96
[2020-10-31] VITALS (9 sets, daily range): BP systolic 129–169; BP diastolic 76–96; PULSE 72–91; RESP 16–20; TEMP 36.5–37; O2SAT 93–97
[2020-10-31] MEDS: acetaminophen 325 mg Tablet 650 MG PO ×3 (00:36→16:41)
[2020-10-31] MEDS: sodium chloride 0.9% 1,000 ML 75 ML IV ×2 (00:36→14:04)
[2020-10-31] MEDS: meclizine 25 mg tablet PO (05:34)
--- NOTE | 2020-10-31 06:06 | P.HP_ITS ---
Providers/Chief Complaint Admitting Physician: Phan Mckeon Primary Care Provider: Donny Newell DO Chief Complaint: PT STATES TROUBLE WITH VERTIGO History of Present Illness 69-year-old female with a past medical history significant for gastroesophageal reflux disease, sciatica , hypertension, stage 1A of right breast, invasive ductal carcinoma on adjuvant hormonal therapy, paroxysmal atrial fibrillation on Xarelto, who Presented to the hospital with acute onset of vertigo. Started earlier on . Noted sensation of room spinning. This is leading to nausea and vomiting. Denied hearing loss, or tinnitus. Noted to have a similar episode over a year ago which had resolved spontaneously. Upon arrival to emergency room her initial laboratory workup showed a WBC of 9.7, hemoglobin of 12.8, hematocrit 38.4 and a platelet count of 276. Sodium 139, potassium 3.1, chloride 98, bicarb 25, BUN 10 and creatinine of 0.6. Troponin trend was negative. LFTs were normal.Head CT did not show any evidence of acute intracranial abnormality.Initial vitals on arrival showed a blood pressure of 146/99, heart rate of 93, respiratory rate of 18, temperature of 97.8, and oxygen saturation 96% on room air. In emergency room patient was given Zofran 4 mg IV x1, Antivert 50 mg oral x1, KCl 40 mEq oral x1, normal saline bolus and admitted to the hospital. Review of Systems General: Reports: 10 or more systems reviewed and unremarkable except in HPI and below Medications/Allergies Home Medications Medication Instructions Recorded Confirmed Last Taken Type furosemide 40 mg tablet 40 mg PO DAILY@89902/20/20 10/30/20 10/30/20 History loratadine 10 mg tablet 10 mg PO DAILY@89902/20/20 10/30/20 10/30/20 History losartan 100 mg tablet 100 mg PO DAILY@89902/20/20 10/30/20 10/30/20 History oxycodone-acetaminophen 7.5 mg-325 1 tab PO Q4H PRN 02/20/20 10/30/20 Unknown History mg tablet pantoprazole 40 mg tablet,delayed 40 mg PO DAILY@89902/20/20 10/30/20 10/30/20 History release rivaroxaban 20 mg tablet 20 mg PO DAILY@89906/26/20 10/30/20 10/30/20 History amlodipine 10 mg PO DAILY@0900 10/30/20 10/30/20 10/30/20 History digoxin 125 mcg PO DAILY@0900 10/30/20 10/30/20 10/30/20 History meclizine See Rx Instructions .ROUTE .COMPLEX 10/30/20 10/30/20 10/30/20 History metoprolol tartrate 150 mg PO BID@0900,1200 10/30/20 10/30/20 10/30/20 History Allergies Allergy/AdvReac Type Severity Reaction Status Date / Time adhesive tape Allergy ALGY-Redness Verified 06/26/20 14:09 of Skin Latex, Natural Rubber Allergy ALGY-Redness Verified 06/26/20 14:09 of Skin PFSH Acute PFSH: Medical History (Updated 10/31/20 @ 06:09 by Phan Mckeon MD) Atrial fibrillation Breast cancer GERD (gastroesophageal reflux disease) Hypertension Surgical History (Updated 10/31/20 @ 06:09 by Phan Mckeon MD) H/O breast biopsy History of tubal ligation Family History Other CAD (coronary artery disease) Cancer History of breast lump removal History of cholecystectomy Hypertension Social History Smoking and tobacco status: never smoked Vitals/I&O/Wt Last Vital Signs Temp 97.7 F 10/31/20 04:00 Pulse 91 10/31/20 04:00 Resp 16 10/31/20 04:00 BP 129/91 10/31/20 04:00 Pulse Ox 96 10/31/20 04:00 10/30/20 10/30/20 10/31/20 14:59 22:59 06:59 Output Total 350 / 350 Balance -350 / -350 Weight last 48 hrs Weight 86.183 kg Physical Exam Narrative: EXAM NARRATIVE: General -alert awake and oriented x3 HEENT -grossly unremarkable CVS -regular rate rhythm no obvious murmurs Chest -clear to auscultation bilaterally Abdomen-soft nontender non distended Extremities-no edema Data : 10/31/20 05:58 10/31/20 05:58 A&P Assessment and plan (1) Vertigo: Status: Acute (2) Atrial fibrillation: Status: Acute (3) Hypertension: Status: Acute Acute Vertigo probably Vestibular Neuritis Etiology unclear Head CT -negative Change zofran to phenergan, Continue Antivert May consider trail of Valium If persistent may also consider steroids. Consider ENT consultation Fall precautions Neuro-checks May consider MRI Check Dig-level Paroxysmal atrial fibrillation Metoprolol 150 p.o. b.i.d. Xarelto 20 mg oral daily Monitor on cardiac telemetry Hypertension Metoprolol as noted above Losartan 100 mg oral daily Lasix 40 mg oral daily Breast cancer Previously noted to be on hormonal therapy However do not see this on her matter GERD Protonix 40 mg oral daily DVT ppx Xarelto as noted above Attestations Medical Necessity Statement*: Anticipate less than 2 midnight stay in hospital for evaluation and treatment. Time Spent in Patient Care: Greater than 35 minutes (>than 50% of time spent in counselling and/or direct pt care on unit) . Coding Level of Care Code Acute Technology Strategist for [facility] Diagnoses Vertigo R42 Atrial fibrillation I48.91 Hypertension I10
[2020-10-31 06:32] LABS: Basophils % 0.4 %; Eosinophils % 0.1 %; Hematocrit 35.1 % (37.0-47.0); Hemoglobin 11.6 g/dL (11.5-15.3); Lymphocytes # 2.1 10^3/uL (0.8-4.8); Lymphocytes % 19.7 %; Mean Corpuscular Volume 93.9 fL (81-99); Mean Platelet Volume 11.4 fL (7.4-10.4); Monocytes # 0.7 10^3/uL (0.2-0.9); Monocytes % 6.4 %; Neutrophils # 7.62 10^3/uL (1.8-7.7); Nucleated Red Blood Cells % 0 %; Platelet Count 244 10^3/cmm (130-400); Red Blood Count 3.74 10^6/uL (4.1-5.3); Red Cell Distribution Width 13.4 % (12.1-15.1); White Blood Count 10.4 10^3/uL (4.0-10.0)
[2020-10-31 06:53] LABS: Digoxin 1.1 ng/mL (0.6-1.2)
[2020-10-31] MEDS: diazePAM 2 mg Tablet PO (06:57)
[2020-10-31 06:59] LABS: Alanine Aminotransferase 21 U/L (0-33); Albumin Level 3.7 g/dL (3.5-5.2); Alkaline Phosphatase 79 IU/L (35-105); Anion Gap 13.5 (5-19); Aspartate Amino Transferase 18 U/L (0-32); Blood Urea Nitrogen 9 mg/dL (8-23); Calcium 7.8 mg/dL (8.5-10.5); Carbon Dioxide 27 mmol/L (22-29); Chloride 101 mmol/L (98-107); Globulin 2.8 g/dL (1.3-4.6); Glucose 112 mg/dL (65-115); Magnesium 1.9 mg/dL (1.7-2.3); Osmolality Calculated 285 mOsm/kg (285-295); Potassium 3.5 mmol/L (3.5-5.1); Sodium 138 mmol/L (136-145); Thyroid Stimulating Hormone 0.76 uIU/mL (0.27-4.20); Total Bilirubin 0.6 mg/dL (0.15-1.2); Total Protein 6.5 g/dL (6.6-8.7)
[2020-10-31] MEDS: amlodipine 10 mg Tablet PO (07:47)
[2020-10-31] MEDS: losartan 50 mg Tablet 100 MG PO (07:47)
[2020-10-31] MEDS: metoprolol tartrate 50 mg Tablet 150 MG PO ×2 (07:47→21:49)
[2020-10-31] MEDS: FUROsemide 40 mg Tablet PO (07:47)
[2020-10-31] MEDS: digoxin 125 mcg Tablet PO (07:47)
[2020-10-31] MEDS: pantoprazole DR 40 mg Tablet PO (07:47)
[2020-10-31] MEDS: rivaroxaban 10 mg Tablet 20 MG PO (07:48)
--- NOTE | 2020-10-31 09:12 | PC.NURSE ---
Bath Bath and linen change offered at this time, patient declined. Will offer at a later time this morning.
[2020-10-31] MEDS: ondansetron 2 mg/ML SDV 2 mL 4 MG IVP (10:51)
--- NOTE | 2020-10-31 11:01 | PC.CHAP ---
Pastoral Care Encounter/Spiritual Assessment Type of Contact [] Declined dental services director visit [] Patient/Family/Request visit [] Outpatient visit [] Follow-up visit [] Physician referral [] Code/Alert [x] Routine visit [] Staff referral [] Actively dying [] Patient sleeping [] Family support [] [] Out of room [] Palliative care [] [] Receiving care in room [] Pre-surgical visit [] Trauma [] Long length of stay [] ICU visit [] Other: Relational/Emotional Strength [] Patient feels connected with others/family/visitors/staff [] Distress [] Loneliness/isolation [] Abandonment Spirituality of Patient [] Person of Tabitha [] Attends Anabaptist of their Tabitha [] Believes in Prayer [] Reads Bible or Spiritism materials [] There are Spiritual issues to be addressed Information Coder Interventions x[] Prayer [x] Active listening [] Non-anxious presence [] Spiritual/emotional support [] Crisis/trauma care [] Spiritual counseling [] Bereavement support [] Provided bereavement packet [] Provided Bible/devotional materials [] Provided toy/stuffed animal, coloring book to patient or family member [] Provided Communion [] Anointing/[place] [] Salvation [x] Completed spiritual assessment [] Other: Impact on Illness or Injury [] Angry [] Fearful [] Anxious [] Often cries [] Exhaustion [] Unable to work [] Unable to attend religion [] Unable to walk/stand [] Unable to read [] Unable to drive [] Unable to eat/drink [] Unable to sleep [] Unable to be with family [] Patient intubated [] Other: Summary patient not alot to say Time spent with patient 10 min
--- NOTE | 2020-10-31 18:45 | P.PN_ITS ---
Subjective Subjective: Interval history: Much improved after Hallpike's maneuver done by physical therapy. Although patient is still a bit nauseous and afraid to eat. Medications: Reviewed: Yes Vitals/I&O/Wt Last Vital Signs Temp 98.5 F 10/31/20 16:00 Pulse 80 10/31/20 16:00 Resp 17 10/31/20 16:00 BP 169/84 10/31/20 16:00 Pulse Ox 95 10/31/20 16:00 10/31/20 10/31/20 10/31/20 06:59 14:59 22:59 Intake Total 2120 / 2120 Output Total 650 / 650 1050 / 1050 Balance -650 / -650 1070 / 1070 Weight last 48 hrs Weight 86.183 kg Physical Exam Narrative: EXAM NARRATIVE: No nystagmus. Normal extraocular movement. No pain with eye movement. Heart regular normal S1-S2 without murmurs clicks gallops or rubs Clear to auscultation without wheezes rales or rhonchi Abdomen soft nontender nondistended positive bowel sounds no hepatosplenomegaly Extremities no clubbing cyanosis or edema Data : 10/31/20 05:58 10/31/20 05:58 A&P Assessment and plan (1) Vertigo: Likely due to otolith. Hallpike's maneuver was successful Status: Acute (2) Atrial fibrillation: Continue home medications Status: Acute (3) Hypertension: Continue home medications Status: Acute Assessment and Plan (1) Vertigo: Plan: Likely due to otolith. Hallpike's maneuver was successful The risks, benefits, and side effects of the medication and treatment plan were explained to the patient who expressed understanding. Status: Acute Code(s): R42 - Dizziness and giddiness (2) Atrial fibrillation: Plan: Continue home medications The risks, benefits, and side effects of the medication and treatment plan were explained to the patient who expressed understanding. Status: Acute Code(s): I48.91 - Unspecified atrial fibrillation (3) Hypertension: Plan: Continue home medications The risks, benefits, and side effects of the medication and treatment plan were explained to the patient who expressed understanding. Status: Acute Code(s): I10 - Essential (primary) hypertension Attestations Medical Necessity Statement*: Patient requires IV medication. Patient requires continued IV fluids. Patient's hospital stay Coding Level of Care Code Acute Home Health Outreach Coordinator for [facility]g Fwd Diagnoses Vertigo R42 Atrial fibrillation I48.91 Hypertension I10
[2020-11-01] VITALS: BP 131/84; PULSE 66; RESP 18; TEMP 36.9; O2SAT 95
[2020-11-01] MEDS: acetaminophen 325 mg Tablet 650 MG PO ×2 (00:53→08:52)
[2020-11-01 04:00] VITALS: BP 122/79; PULSE 76; RESP 18; TEMP 36.8; O2SAT 95
[2020-11-01 08:00] VITALS: BP 138/84; PULSE 74; RESP 16; TEMP 36.8; O2SAT 98
[2020-11-01 08:38] VITALS: BP 155/98
[2020-11-01] MEDS: sodium chloride 0.9% 1,000 ML 75 ML IV (08:44)
[2020-11-01 08:45] VITALS: BP 138/84; PULSE 88
[2020-11-01] MEDS: metoprolol tartrate 50 mg Tablet 150 MG PO (08:45)
[2020-11-01] MEDS: pantoprazole DR 40 mg Tablet PO (08:45)
[2020-11-01] MEDS: losartan 50 mg Tablet 100 MG PO (08:45)
[2020-11-01] MEDS: rivaroxaban 10 mg Tablet 20 MG PO (08:45)
[2020-11-01] MEDS: digoxin 125 mcg Tablet PO (08:45)
[2020-11-01] MEDS: amlodipine 10 mg Tablet PO (08:45)
[2020-11-01] MEDS: FUROsemide 40 mg Tablet PO (08:45)
--- NOTE | 2020-11-01 11:09 | PM.DCS ---
Discharge Providers Date of Admission: 10/31/20 18:46 Date of Discharge: November 01, 2020 Attending Provider at Admission: Phan Mckeon Attending Provider at Discharge: Phan Mckeon Primary Care Provider: Donny Newell DO Diagnoses at Discharge Discharge Diagnosis (1) Vertigo: Status: Acute (2) Atrial fibrillation: Status: Acute (3) Hypertension: Status: Acute Reason for Visit Reason for Visit: PT STATES TROUBLE WITH VERTIGO Hospital Course Hospital Course Patient was admitted to the hospital with vertigo with nystagmus. This was felt to be peripheral in nature. The following day physical therapy perform Hallpike maneuver with about 80% improvement. She continued to require Zofran was unable to eat significantly and required further hydration via IV. This morning the Hallpike maneuver was performed again at this point with 99% improvement. Patient was able to eat some this morning he is feeling remarkably improved. She is in stable and improved condition for discharge with stable vital signs. Physical Exam Narrative: EXAM NARRATIVE: No nystagmus. Normal extraocular movement. No pain with eye movement. Heart irregular rhythm, rate normal. normal S1-S2 without murmurs clicks gallops or rubs Clear to auscultation without wheezes rales or rhonchi Abdomen soft nontender nondistended positive bowel sounds no hepatosplenomegaly Extremities no clubbing cyanosis or edema Discharge Data Data Completed and Pending: Completed Studies During Hospitalization Category Date Time Status CT head wo con* 7 0450 Urgent Cat Scan 10/30/20 20:24 Completed XR chest 1V risa ble 10120 Urgent Exams 10/30/20 20:24 Completed Vitals: Last Vital Signs Temp 98.2 F 11/01/20 08:00 Pulse 88 11/01/20 08:45 Resp 16 11/01/20 08:00 BP 138/84 11/01/20 08:45 Pulse Ox 98 11/01/20 08:00 Discharge Plan Discharge Patient Disposition: Home Condition: Stable Prescriptions: Continued loratadine [Allergy Relief (loratadine)] 10 mg tablet 10 mg PO DAILY@0900 RF: 0 losartan 100 mg tablet 100 mg PO DAILY@0900 RF: 0 pantoprazole 40 mg tablet,delayed release (DR/EC) 40 mg PO DAILY@0900 RF: 0 furosemide 40 mg tablet 40 mg PO DAILY@0900 RF: 0 Xarelto 20 mg tablet 20 mg PO DAILY@0900 RF: 0 meclizine See Rx Instructions .ROUTE .COMPLEX RF: 0 metoprolol tartrate 100 mg tablet 150 mg PO BID@0900,1200 RF: 0 amlodipine 10 mg tablet 10 mg PO DAILY@0900 RF: 0 digoxin 125 mcg (0.125 mg) tablet 125 mcg PO DAILY@0900 RF: 0 Discontinued oxycodone-acetaminophen 7.5-325 mg tablet 1 tab PO Q4H PRN (Reason: Pain) RF: 0 Discharge Orders: Discharge Order (Routine); Ordered 11/01/20 Ordered By: Tyrone Palacios Referrals: Donny Newell DO [Primary Care Provider] - 11/09/20 9:00 am Discharge Diet: Advance as tolerated Discharge Activity: Increase activity as tolerated Patient Instructions: Opioid Safety Activity Restrictions/Additional Instructions: Recommend following up with primary care provider regarding left hip pain. Recommend left hip x-ray. Depending on findings would consider physical therapy to help muscle tension and pain. Opioids are not indicated for chronic pain. I have discontinued your [place]. You may discuss with your primary care. Discharge Attestations Time Spent in Discharge Care*: less than 30 min Quality Metrics Clinical Quality Measures During this hospital stay, did patient experience: None Coding Level of Care Code Acute Chg FW DC note Diagnoses Vertigo R42 Atrial fibrillation I48.91 Hypertension I10
--- NOTE | 2020-11-01 11:22 | PC.CHAP ---
Pastoral Care Encounter/Spiritual Assessment Type of Contact [x] Declined steam turbine operator visit [] Patient/Family/Request visit [] Outpatient visit [] Follow-up visit [] Physician referral [] Code/Alert [] Routine visit [] Staff referral [] Actively dying [] Patient sleeping [] Family support [] [] Out of room [] Palliative care [] [] Receiving care in room [] Pre-surgical visit [] Trauma [] Long length of stay [] ICU visit [] Other: Relational/Emotional Strength [] Patient feels connected with others/family/visitors/staff [] Distress [] Loneliness/isolation [] Abandonment Spirituality of Patient [] Person of Tabitha [] Attends Yarsani of their Tabitha [] Believes in Prayer [] Reads Bible or Mosque materials [] There are Spiritual issues to be addressed [place] Interventions [] Prayer [] Active listening [] Non-anxious presence [] Spiritual/emotional support [] Crisis/trauma care [] Spiritual counseling [] Bereavement support [] Provided bereavement packet [] Provided Bible/devotional materials [] Provided toy/stuffed animal, coloring book to patient or family member [] Provided Communion [] Anointing/[place] [] Salvation [] Completed spiritual assessment [] Other: Impact on Illness or Injury [] Angry [] Fearful [] Anxious [] Often cries [] Exhaustion [] Unable to work [] Unable to attend bahai [] Unable to walk/stand [] Unable to read [] Unable to drive [] Unable to eat/drink [] Unable to sleep [] Unable to be with family [] Patient intubated [] Other: Summary Declined steam turbine operator visit Time spent with patient 5 mins
[2020-11-01 11:49] VITALS: BP 138/84; PULSE 88
== END 2020-11-01 12:15 | disposition home or self-care (01) | DRG 149 ==
LOC: ER 22:08 → MEDSURG 22:55
PROVIDERS: Admitting Provider Hospitalist; Emergency Provider Family Medicine; PCP Internal Medicine; Visit Provider Internal Medicine
DX: H81.8X9 Other disorders of vestibular function, unspecified ear (principal); H55.00 Unspecified nystagmus; K21.9 Gastro-esophageal reflux disease without esophagitis; M54.30 Sciatica, unspecified side; I10 Essential (primary) hypertension; C50.911 Malignant neoplasm of unspecified site of right female breast; Z79.899 Other long term (current) drug therapy; I48.0 Paroxysmal atrial fibrillation; Z79.01 Long term (current) use of anticoagulants
CPT/HCPCS: 36415; 70450; 71045; 80053; 80162; 83735; 84443; 84484; 85025; 93005; 96361; 96374; 97110; 97161; 99285; G0378; J2405; J7030; J8597

== ENCOUNTER 2020-11-26 12:42 | Outpatient (CLI) | payer MEDICARE, OTHER, SELFPAY ==
--- NOTE | 2020-11-26 12:55 | MR_ITS ---
WS: [id number] Donna Bonaparte MRI LUMBAR SPINE NONCONTRAST HISTORY: Low back and LEFT leg pain. No injury. COMPARISON: 02/06/2016 TECHNIQUE: Sagittal and axial multisequence imaging is submitted. 5 nonrib-bearing vertebral bodies and lumbar spine are identified on the radiograph from 11/09/2020. T 12 rudimentary ribs. Straightening of the normal lumbar lordosis. No fractures or marrow edema. Mild disc space narrowing and desiccation throughout the lumbar spine. Conus terminates normally at L1. L1-L2: There is increased soft tissue in the LEFT foramen and equivocal but suspicious for mild enlar gement of the foramen. Soft tissue extends in the LEFT paracentral region into the foramen with oblit eration of the normal nerve root. The L1 nerve root is enlarged and inseparable from the paracentral soft tissue mass. This soft tissue mass extends over length of 1.5 cm and is new since the prior stud y. There is a disc protrusion with annular fissure with mild contact on the LEFT lateral thecal sac a lso at this level. L2-L3: Mild asymmetric disc bulging causing mild encroachment upon the RIGHT lateral recess. L3-L4: Mild annular disc bulging. Small fissure in the LEFT foramen. Small amount of fluid in the fac et joints. L4-L5: Mild annular disc bulging with a central disc protrusion and annular fissure. Disc contacts th e L5 nerve roots in the lateral recesses and a small amount of fluid in the facet joints. L5-S1: Mild annular disc bulging. No stenosis. Bilateral T2 intense masses within each kidney. Probably representing small cysts. 11 mm nodule in th e posterior mid LEFT kidney is indeterminate for cyst. This needs further evaluation to exclude neopl asm. MR/MR lumbar spine wo con* [id number] IMPRESSION: 1. Soft tissue mass in the LEFT L1-2 foramen inseparable from an associated di sc protrusion involving the L1 nerve root. There may be also slight widening of the foramen. Recommend follow-up MRI lumbar spine with contrast to exclude mas s such such as a schwannoma. Could potentially be related to disc extrusion or fragment. 2. Mild encroachment upon the lateral recess at L2-3. 3. Mild disc contact on the L5 nerve roots bilaterally at L4-5. 4. No central stenosis. 5. Indeterminate cystic mass in the LEFT kidney measures 11 mm. Recommend foll ow-up renal ultrasound evaluation to exclude solid mass.
== END 2020-11-26 12:43 | disposition home or self-care (01) ==
PROVIDERS: PCP Internal Medicine; Visit Provider Internal Medicine
DX: R53.1 Weakness (principal); M79.605 Pain in left leg; N28.89 Other specified disorders of kidney and ureter; M51.26 Other intervertebral disc displacement, lumbar region
CPT/HCPCS: 72148

== ENCOUNTER 2020-12-03 12:20 | Outpatient (CLI) | payer MEDICARE, OTHER, SELFPAY ==
[2020-12-03 13:04] LABS: Basophils # 0.1 10^3/uL (0.0-0.1); Basophils % 0.7 %; Eosinophils # 0.2 10^3/uL (0.0-0.8); Eosinophils % 2.2 %; Hematocrit 35.3 % (37.0-47.0); Hemoglobin 11.4 g/dL (11.5-15.3); Lymphocytes # 2.3 10^3/uL (0.8-4.8); Lymphocytes % 32.6 %; Mean Corpuscular HGB Conc 32.3 g/dL (30.0-36.0); Mean Corpuscular Hemoglobin 31.1 pg (28.0-34.0); Mean Corpuscular Volume 96.2 fL (81-99); Mean Platelet Volume 11.4 fL (7.4-10.4); Monocytes # 0.6 10^3/uL (0.2-0.9); Monocytes % 7.7 %; Neutrophils # 4.02 10^3/uL (1.8-7.7); Neutrophils % 56.5 %; Nucleated Red Blood Cells % 0 %; Platelet Count 242 10^3/cmm (130-400); Red Blood Count 3.67 10^6/uL (4.1-5.3); Red Cell Distribution Width 14.1 % (12.1-15.1); White Blood Count 7.1 10^3/uL (4.0-10.0)
[2020-12-03 13:51] LABS: 25 Hydroxy Vitamin D 34 ng/mL (30-100); Alanine Aminotransferase 35 U/L (0-33); Alkaline Phosphatase 107 IU/L (35-105); Anion Gap 11.6 (5-19); Aspartate Amino Transferase 39 U/L (0-32); Blood Urea Nitrogen 12 mg/dL (8-23); Carbon Dioxide 30 mmol/L (22-29); Chloride 101 mmol/L (98-107); Globulin 2.9 g/dL (1.3-4.6); Glucose 114 mg/dL (65-115); Osmolality Calculated 289 mOsm/kg (285-295); Potassium 3.6 mmol/L (3.5-5.1); Sodium 139 mmol/L (136-145); Total Bilirubin 0.3 mg/dL (0.15-1.2); Total Protein 6.9 g/dL (6.6-8.7)
--- NOTE | 2020-12-05 06:47 | ONC FU_ITS ---
Dr. Robles Patient Follow-Up Note Patient: Ashley Garcia Unit #: [id number]: 1950 Dicatated By: Donny Robles M.D.Date of Visit:Dec 03, 2020 Onc Med Follow-up/Prog Note Chief Complaint: Breast cancer. 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 She had presented with abnormal screening mammogram. That study, from 12/29/2019, was BI-RADS 0. Findings included a 9 mm spiculated focal asymmetric density in the upper inner right breast. Additional mammographic views on 02/01/2020 showed stable spiculated asymmetric density in the right breast. Ultrasound at that time showed a hypoechoic solid-appearing lesion with irregular measuring 1.9 x 0.9 x 1.2 cm. A 2.0 x 2.5 x 1.3 cm lymph node in the right axilla showed loss of normal fatty hilum and cortical thickening. The findings were BI-RADS 4, suspicious, and biopsy was recommended. On 02/16/2020 she underwent biopsy of the right breast lesion at 1:00. Pathology showed grade 2 invasive ductal carcinoma and ductal carcinoma in situ, solid type, grade 3 with comedonecrosis. The breast prognostic profile showed ER +85% and SD positive at 90%. The tumor was positive for overexpression of HER-2/cathryn, 3+ by IHC with amplification ratio by FISH of 5.2 with 10.0 HER-2 copies/cell. The Ki-67 was borderline at 10%. On 03/14/2020 she underwent ultrasound-guided biopsy of the right axillary lymph node. Pathology showed reactive follicular hyperplasia. There was no malignancy identified. On 04/02/2020 she underwent right breast lumpectomy with axillary sentinel lymph node biopsy. The gross pathology described a chase-white lesion within the lumpectomy specimen measuring 1 x 1.2 x 0.8 cm. Microscopic examination showed grade 2 invasive ductal carcinoma measuring 2 mm in greatest dimension. The closest margin to invasive carcinoma was the superior margin measuring 4 mm. Grade 3 ductal carcinoma in situ was noted in 4 blocks. The closest margin to DCIS was also the superior margin measuring 2.8 mm. There was no involvement in 2 sentinel lymph nodes. Other pathologic findings included fibroadenoma, sclerosing adenosis, apocrine ADH and previous biopsy site changes. Her pathologic staging was pT1a, pN0. I had seen her initially on 04/17/2020. With node negative, T1a disease, adjuvant chemotherapy would not have been indicated, and Oncotype DX would also not have been indicated, per NCCN guidelines. In view of the small component of invasive cancer, I felt that it was likely that the HER-2/cathryn results may have not have been accurate, and may have just reflected the in situ component rather than the invasive component of the tumor. At that time, I had recommended that she have adjuvant hormonal therapy I also recommended that she see the radiation oncologist to discuss radiation. She had seen Dr. Garcia for radiaton oncology consultation on 04/23/2020 and after discussion with him, she opted not to take radiation. She then had a follow-up visit to discuss the adjuvant hormonal therapy. Given the low risk of recurrence with T1a disease, she had initially opted against the adjuvant hormonal therapy. I had further discussion with her at her follow-up visit in May 2020, at that point she did agree to the adjuvant hormonal therapy, as both Dr. Garcia and I were very uncomfortable with her treatment being limited to lumpectomy alone. She then began treatment with anastrozole 1 mg daily on 08/20/2020. Her baseline DEXA scan had shown osteopenia with T score -1.2 in the lumbar spine, -1.8 in the left hip, and -1.5 in the right hip. Her other medical illnesses include hypertension, atrial fibrillation, and GERD. She also has a history of sciatica. She is a non-smoker. INTERIM HISTORY: On 11/01/2019 when she was admitted to the hospital after presenting to the emergency room with vertigo. She was found to have atrial fibrillation. She had significant improvement in the vertigo with the Hallpike maneuver. She remained in atrial fibrillation. She was discharged home on metoprolol, digoxin, and rivaroxaban. She is seen for a follow-up visit. In September she had stopped taking the anastrozole because of a significant increase in joint pain. Since then, the pain has been better other than her back has been bothering her. She reports having pain in the left lower back radiating down the left leg. She had evaluation with MRI of the lumbar spine on 11/26/2020 and it showed increased soft tissue in the left for a man at L1-L2, equivocal but suspicious for mild enlargement of the 4 mm. The soft tissue was noted to extend into the left paracentral region into the foramen with obliteration of the normal nerve root. The L1 nerve root was noted to be enlarged and inseparable from the paracentral soft tissue mass which was noted to extend over a length of 1.5 cm. It was a new finding compared to the prior study from January 2016. There were otherwise just mild degenerative changes. She says her energy is pretty low, but she is doing light work. ECOG score is 1. Her appetite is not that good. Her weight is down about 5 pounds. She does not have fever or night sweats. She has no shortness of breath, cough, or chest pain. She has no GI complaints other than recent onset of constipation associated with pain medication. She says her bladder function is fine. She does not complain of headache. She does have numbness/tingling in the anteromedial aspect of her left leg. Medications: diazePAM 1 Tablet (of 5 mg) Oral t.i.d. PRN, Digoxin 1 Tablet (of 125 mcg) Oral daily, Furosemide 1 Tablet (of 40 mg) Oral daily, Loratadine 1 Tablet (of 10 mg) Oral daily, Losartan Potassium 1 Tablet (of 100 mg) Oral daily, Metoprolol Tartrate 1 Tablet (of 100 mg) Oral b.i.d., oxyCODONE-Acetaminophen 1 Tablet (of 7.5-325 mg) Oral daily PRN, Pantoprazole Sodium 1 Tablet (of 40 mg) Tablet, enteric coated Oral daily, Senna-Tabs 1 Tablet (of 8.6 mg) Oral b.i.d., Xarelto 1 Tablet (of 20 mg) Oral daily Allergies: adhesive tape Vital Signs: Performed on Dec 03, 2020 14:45 Height - 63.00 in Weight - 183.4 lbs (LOW) BSA - 1.86 sq.m BMI - 32.49 (HIGH) Temperature - 96.2 F (LOW) Pulse - 89 /min Respiration - 18 /min BP - 146/89 mm(hg) (HIGH) O2 Sat - 96 % Pain - 6 Physical Examination: Constitutional - She looks good generally, Eyes - Sclerae nonicteric. Conjunctivae clear, ENMT - No lesions noted in the oral cavity, Hematologic/Lymphatic - No cervical, clavicular, or axillary adenopathy, Respiratory - Lungs are clear with good air movement bilaterally, Cardiovascular - Heart rhythm is irregular. There is a II/ systolic murmur. There is no gallop or rub noted, Abdomen - Soft. Liver and spleen are not enlarged. There is no abdominal mass or ascites noted and there is no inguinal adenopathy, Extremities - No edema, Neurologic - No focal neurologic deficits noted. Lab/Imaging: Test performed on Dec 03, 2020 12:38 Sodium 139 mmol/L Vitamin D (25-Hydroxy), Total 34 ng/mL Potassium 3.6 mmol/L Chloride 101 mmol/L CO2 30 mmol/L Anion Gap 11.6 BUN 12 mg/dL Creatinine 0.6 mg/dL Cr Clearance (Est) 112.94 mL/min Glucose 114 mg/dL Osmolality - Calculated 289 mOsm/kg Calcium 8.0 mg/dL Protein, Total 6.9 g/dL Albumin 4.0 g/dL Globulin 2.9 g/dL Bilirubin, Total 0.3 mg/dL ALT (SGPT) 35 U/L AST (SGOT) 39 U/L Alkaline Phosphatase 107 IU/L WBC 7.1 10 3/uL RBC 3.67 10 6/uL HGB 11.4 g/dL HCT 35.3 % MCV 96.2 fL MCH 31.1 pg MCHC 32.3 g/dL RDW 14.1 % Platelet Count 242 10 3/cmm MPV 11.4 fL Neutrophils 4.02 10 3/uL Lymphocytes 2.3 10 3/uL Monocytes 0.6 10 3/uL Eosinophils 0.2 10 3/uL Basophils 0.1 10 3/uL Neutrophil % 56.5 % Lymphocyte % 32.6 % Monocyte % 7.7 % Eosinophil % 2.2 % Basophils % 0.7 % NRBC % 0 % Problem List: 1. 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 Her tumor was reported to be ER/SD positive and HER-2/cathryn positive. 2. Her procedures included ultrasound guided biopsy of the right breast on 02/16/2020, ultrasound-guided biopsy of right axillary lymph node on 03/14/2020, and right breast lumpectomy with axillary sentinel lymph node biopsy on 04/02/2020. 3. Hypertension. 4. Atrial fibrillation. 5. GERD. 6. Allergic rhinitis. 7. She has a history of sciatica. Problems Addressed with this Encounter and Plan: 1. 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 Her tumor was reported to be ER/SD positive and HER-2/cathryn positive. She underwent ultrasound guided biopsy of the right breast on 02/16/2020, ultrasound-guided biopsy of right axillary lymph node on 03/14/2020, and right breast lumpectomy with axillary sentinel lymph node biopsy on 04/02/2020. I had my initial visit with her I had recommended adjuvant hormonal therapy and also recommended that she see the radiation oncologist to discuss radiation to the right breast. She did see Dr. Garcia on 04/23/2020, and she opted not to take radiation. She had initially declined but ultimately agreed to adjuvant hormonal therapy. In August 2019 when she began adjuvant hormonal therapy with anastrozole 1 mg daily. It was stopped 1 month later due to significant increase in joint pain. She prefers now to just continue with expectant management. She will be scheduled for a follow-up visit in 6 months. 2. She had evidence of osteopenia on her baseline bone density study. She had started treatment with Prolia, but that will now be put on hold. 3. She had recently developed radicular pain in the lower back/left leg. Her lumbar spine MRI on 11/26/2020 showed findings suspicious for soft tissue mass involving the left L1-2 foramen inseparable from an associated disc protrusion involving the L1 nerve root. She is scheduledto have a contrast-enhanced MRI. She will have further evaluation as indicated. Signed By: Donny Robles M.D. <<Signature on File>>
== END 2020-12-03 12:21 | disposition home or self-care (01) ==
LOC: ONCMED 12:25
PROVIDERS: PCP Internal Medicine; Visit Provider Internal Medicine Medical Oncology
DX: Z08 Encounter for follow-up examination after completed treatment for malignant neoplasm (principal); Z85.3 Personal history of malignant neoplasm of breast; I10 Essential (primary) hypertension; I48.11 Longstanding persistent atrial fibrillation; K21.9 Gastro-esophageal reflux disease without esophagitis; J30.9 Allergic rhinitis, unspecified; Z79.899 Other long term (current) drug therapy
CPT/HCPCS: 36415; 80053; 82306; 85025; 99214

== ENCOUNTER 2021-01-01 10:34 | Outpatient (CLI) | payer MEDICARE, OTHER, SELFPAY ==
--- NOTE | 2021-01-01 10:52 | MR_ITS ---
WS: [id number] MRI LUMBAR SPINE WITH CONTRAST TECHNIQUE: Sagittal T1, T2 and postgadolinium imaging. Axial T1 and T2 imaging. Post gadolinium sagit rhett and axial imaging with fat saturation technique CLINICAL INFORMATION: LUMBAR EPIDURAL MASS COMPARISON: MRI November 26, 2020 FINDINGS: Contrast administered to evaluate L1-2 left foraminal lesion previously described on November 152020. Mild lumbar curve. No acute compression. No high-grade central canal stenosis. L1-L2: Shallow left pericentral disc protrusion. Small amount of soft tissue material migrating poste rior to the L1 vertebral body and extending into the superior neural foramen. This demonstrates perip heral enhancement most consistent with disc material. This contacts the exiting left L1 nerve root wi th mild/moderate left foraminal narrowing. Correlation for left L1 nerve root symptoms. Otherwise no significant changes from previous. Bilateral renal cysts. MR/MR lumbar spine w con [id number] IMPRESSION: 1. Left pericentral disc protrusion with suspected disc material migrated post erior to the L1 vertebral body extending into the superior neural foramen. This demonstrates peripheral enhancement most consistent with disc material. Mild t o moderate left L1-2 foraminal narrowing. 2. Otherwise no other significant changes from the prior exam
[2021-01-01] MEDS: gadobenate dimeglumine 20 mL vial IV (11:39)
== END 2021-01-01 10:35 | disposition home or self-care (01) ==
LOC: RADWPI 10:40
PROVIDERS: PCP Internal Medicine; Visit Provider Internal Medicine
DX: G95.89 Other specified diseases of spinal cord (principal); M51.26 Other intervertebral disc displacement, lumbar region; Q61.02 Congenital multiple renal cysts
CPT/HCPCS: 72149; A9577

== ENCOUNTER → 2021-02-08 08:31 | Outpatient (BNVA) | payer MEDICARE, OTHER, SELFPAY | PROVIDERS: PCP Internal Medicine; Referring Provider Orthopaedic Surgery; Visit Provider Anesthesiology Pain Medicine | DX: G89.29 Other chronic pain (principal); M51.16 Intervertebral disc disorders with radiculopathy, lumbar region; M47.816 Spondylosis without myelopathy or radiculopathy, lumbar region; M79.652 Pain in left thigh; Z79.891 Long term (current) use of opiate analgesic | CPT/HCPCS: 99205 ==

== ENCOUNTER → 2021-02-12 12:49 | Outpatient (BNVA) | payer MEDICARE, OTHER, SELFPAY | PROVIDERS: PCP Internal Medicine; Visit Provider Anesthesiology Pain Medicine | DX: M51.16 Intervertebral disc disorders with radiculopathy, lumbar region (principal); Z79.891 Long term (current) use of opiate analgesic | CPT/HCPCS: 64483 ==

== ENCOUNTER → 2021-02-26 09:06 | Outpatient (BNVA) | payer MEDICARE, OTHER, SELFPAY | PROVIDERS: PCP Internal Medicine; Visit Provider Anesthesiology Pain Medicine | DX: M47.816 Spondylosis without myelopathy or radiculopathy, lumbar region (principal); M51.16 Intervertebral disc disorders with radiculopathy, lumbar region; M79.652 Pain in left thigh; Z79.891 Long term (current) use of opiate analgesic | CPT/HCPCS: 99212; 99213 ==

== ENCOUNTER 2021-03-21 08:35 | Outpatient (CLI) | payer MEDICARE, OTHER, SELFPAY ==
--- NOTE | 2021-03-21 08:38 | MM_ITS ---
WS: [id number] DIAGNOSTIC BILATERAL DIGITAL MAMMOGRAM WITH CAD HISTORY: HX OF BREAST CA COMPARISON: 02/01/2020, 12/29/2019, 12/12/2011 and 03/14/2020. TECHNIQUE: Bilateral craniocaudad, mediolateral oblique, and mediolateral views are submitted. Comput er aided detection utilized. Breast composition: The breasts are heterogeneously dense, which may obscure small masses. Surgical r esection of the previous the described mass at 12:00. Minimal volume loss in the trabecular thickenin g in the RIGHT breast. No recurrent mass or nodule. Benign vascular calcifications in the LEFT breast . High density mass measuring 2.4 x 2.2 cm in the RIGHT axilla. There was a lymph node in this location on the prior study which was normal with a normal fatty hilum. Mass is now very dense and slightly e nlarged and becoming more rounded. MM/[place] [id number] IMPRESSION: BI-RADS: 0-Incomplete: Need additional imaging evaluation FOLLOW UP: Need Additional Imaging Recommend ultrasound evaluation of the RIGHT axillary mass. This mass has avina ed in size and attenuation. This could be a postoperative seroma from prior sen tinel node resection or abnormal lymph node.
== END 2021-03-21 08:36 | disposition home or self-care (01) ==
LOC: RADSHAW 08:37
PROVIDERS: PCP Internal Medicine; Visit Provider Internal Medicine Medical Oncology
DX: Z85.3 Personal history of malignant neoplasm of breast (principal)
CPT/HCPCS: 77066

== ENCOUNTER 2021-05-09 07:57 | Outpatient (CLI) | payer MEDICARE, OTHER, SELFPAY ==
--- NOTE | 2021-05-09 08:04 | US_ITS ---
WS: [id number] ULTRASOUND BREAST RIGHT TECHNIQUE: Ultrasound right breast focused area of concern. CLINICAL INFORMATION: MALIGNANT NEOPLASM OF R BREAST-R AXILLA COMPARISON: Diagnostic March 21, 2021 FINDINGS: Ultrasound right axilla. In the area of concern, right axilla, there is a large simple cyst or postop erative seroma measuring 2.5 x 2.2 x 2.1 cm. This corresponds to the mammographic findings. This has a benign appearance. Recommend return to screening mammography. US/US breast RT limited* [id number] IMPRESSION: BI-RADS 2 benign Recommend return to annual mammography.
== END 2021-05-09 07:58 | disposition home or self-care (01) ==
LOC: RAD 07:58
PROVIDERS: PCP Internal Medicine; Visit Provider Internal Medicine Medical Oncology
DX: C50.211 Malignant neoplasm of upper-inner quadrant of right female breast (principal)
CPT/HCPCS: 76642

== ENCOUNTER 2021-06-05 10:31 | Outpatient (CLI) | payer MEDICARE, OTHER, SELFPAY ==
[2021-06-05 11:10] LABS: Basophils # 0.1 10^3/uL (0.0-0.1); Basophils % 0.9 %; Eosinophils # 0.2 10^3/uL (0.0-0.8); Hematocrit 39.3 % (37.0-47.0); Hemoglobin 12.6 g/dL (11.5-15.3); Lymphocytes # 2.3 10^3/uL (0.8-4.8); Lymphocytes % 24.5 %; Mean Corpuscular HGB Conc 32.1 g/dL (30.0-36.0); Mean Corpuscular Hemoglobin 29.1 pg (28.0-34.0); Mean Corpuscular Volume 90.8 fl (81-99); Mean Platelet Volume 11.1 fL (7.4-10.4); Monocytes # 0.6 10^3/uL (0.2-0.9); Monocytes % 6.4 %; Neutrophils # 6.13 10^3/uL (1.8-7.7); Neutrophils % 65.6 %; Nucleated Red Blood Cells % 0 %; Platelet Count 308 10^3/cmm (130-400); Red Blood Count 4.33 10^6/uL (4.1-5.3); Red Cell Distribution Width 13.2 % (12.1-15.1); White Blood Count 9.4 10^3/uL (4.0-10.0)
[2021-06-05 11:33] LABS: Alanine Aminotransferase 30 U/L (0-33); Albumin Level 4.2 g/dL (3.5-5.2); Alkaline Phosphatase 115 IU/L (35-105); Aspartate Amino Transferase 23 U/L (0-32); Blood Urea Nitrogen 11 mg/dL (8-23); Calcium 9.1 mg/dL (8.5-10.5); Carbon Dioxide 28 mmol/L (22-29); Chloride 97 mmol/L (98-107); Glucose 151 mg/dL (65-115); Osmolality Calculated 282 mOsm/kg (285-295); Sodium 135 mmol/L (136-145); Total Bilirubin 0.5 mg/dL (0.15-1.2); Total Protein 7.2 g/dL (6.6-8.7)
[2021-06-05 13:20] LABS: Thyroid Stimulating Hormone 3.01 uIU/mL (0.27-4.20)
--- NOTE | 2021-06-09 10:29 | ONC FU_ITS ---
Dr. Robles Patient Follow-Up Note Patient: Ashley Garcia Unit #: [id number]: 1950 Dicatated By: Donny Robles M.D.Date of Visit:Jun 05, 2021 Onc Med Follow-up/Prog Note Chief Complaint: Breast cancer. 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 She had presented with abnormal screening mammogram. That study, from 12/29/2019, was BI-RADS 0. Findings included a 9 mm spiculated focal asymmetric density in the upper inner right breast. Additional mammographic views on 02/01/2020 showed stable spiculated asymmetric density in the right breast. Ultrasound at that time showed a hypoechoic solid-appearing lesion with irregular measuring 1.9 x 0.9 x 1.2 cm. A 2.0 x 2.5 x 1.3 cm lymph node in the right axilla showed loss of normal fatty hilum and cortical thickening. The findings were BI-RADS 4, suspicious, and biopsy was recommended. On 02/16/2020 she underwent biopsy of the right breast lesion at 1:00. Pathology showed grade 2 invasive ductal carcinoma and ductal carcinoma in situ, solid type, grade 3 with comedonecrosis. The breast prognostic profile showed ER +85% and DE positive at 90%. The tumor was positive for overexpression of HER-2/cathryn, 3+ by IHC with amplification ratio by FISH of 5.2 with 10.0 HER-2 copies/cell. The Ki-67 was borderline at 10%. On 03/14/2020 she underwent ultrasound-guided biopsy of the right axillary lymph node. Pathology showed reactive follicular hyperplasia. There was no malignancy identified. On 04/02/2020 she underwent right breast lumpectomy with axillary sentinel lymph node biopsy. The gross pathology described a chase-white lesion within the lumpectomy specimen measuring 1 x 1.2 x 0.8 cm. Microscopic examination showed grade 2 invasive ductal carcinoma measuring 2 mm in greatest dimension. The closest margin to invasive carcinoma was the superior margin measuring 4 mm. Grade 3 ductal carcinoma in situ was noted in 4 blocks. The closest margin to DCIS was also the superior margin measuring 2.8 mm. There was no involvement in 2 sentinel lymph nodes. Other pathologic findings included fibroadenoma, sclerosing adenosis, apocrine ADH and previous biopsy site changes. Her pathologic staging was pT1a, pN0. I had seen her initially on 04/17/2020. With node negative, T1a disease, adjuvant chemotherapy would not have been indicated, and Oncotype DX would also not have been indicated, per NCCN guidelines. In view of the small component of invasive cancer, I felt that it was likely that the HER-2/cathryn results may have not have been accurate, and may have just reflected the in situ component rather than the invasive component of the tumor. At that time, I had recommended that she have adjuvant hormonal therapy I also recommended that she see the radiation oncologist to discuss radiation. She had seen Dr. Garcia for radiaton oncology consultation on 04/23/2020 and after discussion with him, she opted not to take radiation. She then had a follow-up visit to discuss the adjuvant hormonal therapy. Given the low risk of recurrence with T1a disease, she had initially opted against the adjuvant hormonal therapy. I had further discussion with her at her follow-up visit in May 2020, at that point she did agree to the adjuvant hormonal therapy, as both Dr. Garcia and I were very uncomfortable with her treatment being limited to lumpectomy alone. She then began treatment with anastrozole 1 mg daily on 08/20/2020. Her baseline DEXA scan had shown osteopenia with T score -1.2 in the lumbar spine, -1.8 in the left hip, and -1.5 in the right hip. She stopped the anastrozole in September 2020 due to side effects, including increased joint pain and fatigue. Her other medical illnesses include hypertension, atrial fibrillation, and GERD. She also has a history of sciatica. She is a non-smoker. INTERIM HISTORY: On 10/31/2020 she was admitted to the hospital after presenting to the emergency room with vertigo. She was found to have atrial fibrillation. She had significant improvement in the vertigo with the Hallpike maneuver. She remained in atrial fibrillation. She was discharged home on metoprolol, digoxin, and rivaroxaban. During subsequent follow-up her joint pain had improved, but she continued to have significant pain in the left lower back radiating down the left leg. She had evaluation with MRI of the lumbar spine on 11/26/2020 and it showed increased soft tissue in the left for a man at L1-L2, equivocal but suspicious for mild enlargement of the 4 mm. The soft tissue was noted to extend into the left paracentral region into the foramen with obliteration of the normal nerve root. The L1 nerve root was noted to be enlarged and inseparable from the paracentral soft tissue mass which was noted to extend over a length of 1.5 cm. It was a new finding compared to the prior study from January 2016. There were otherwise just mild degenerative changes. She was seen in pain clinic and she had significant improvement with transforaminal ALEYDA. She is seen for a follow-up visit. She still complains that her energy is low. She says she is just tired a lot. She wonders if some of that may not just be due to inactivity. She is doing light work. ECOG score is 1. She says she has very little appetite, but her weight is stable. She has not had fever. She had been having hot flashes at night, but those have gone away. She has allergy related sinus symptoms, those are pretty well controlled with medication. She has not had sore mouth or throat. She does not complain of cough, and she has not been having shortness of breath or chest pain. 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 She has no GI/ complaints other than constipation, which she manages with senna. She occasionally has a little red blood in the stool. She has a family history of colon cancer, and her most recent colonoscopy was about 5 years ago. She has still having some back pain, but it has improved significantly with the injections. She does not complain of headache. She still has occasional episodes of vertigo. She has no numbness/paresthesia or other focal neurologic symptoms. Medications: amLODIPine Besylate 1 Tablet (of 10 mg) Oral daily, diazePAM 1 Tablet (of 5 mg) Oral t.i.d. PRN, Digoxin 1 Tablet (of 125 mcg) Oral daily, Furosemide 1 Tablet (of 40 mg) Oral daily, Loratadine 1 Tablet (of 10 mg) Oral daily, Losartan Potassium 1 Tablet (of 100 mg) Oral daily, Metoprolol Tartrate 1.5 Tablet (of 100 mg) Oral b.i.d., oxyCODONE-Acetaminophen 1 Tablet (of 7.5-325 mg) Oral daily PRN, Pantoprazole Sodium 1 Tablet (of 40 mg) Tablet, enteric coated Oral daily, Senna-Tabs 1 Tablet (of 8.6 mg) Oral b.i.d., Xarelto 1 Tablet (of 20 mg) Oral daily Allergies: adhesive tape Vital Signs: Performed on Jun 05, 2021 14:08 Height - 63.00 in Weight - 191.8 lbs (HIGH) BSA - 1.90 sq.m BMI - 33.98 (HIGH) Temperature - 96.2 F (LOW) Pulse - 83 /min Respiration - 16 /min BP - 162/97 mm(hg) (HIGH) O2 Sat - 98 % Pain - 2 Fatigue - 6 Physical Examination: Constitutional - She looks good generally, Eyes - Sclerae nonicteric. Conjunctivae clear, ENMT - No lesions noted in the oral cavity, Hematologic/Lymphatic - No cervical, clavicular, or axillary adenopathy, Respiratory - Lungs are clear with good air movement bilaterally, Cardiovascular - Heart rhythm is irregular. There is a II/ systolic murmur. There is no gallop or rub noted, Abdomen - Soft. Liver and spleen are not enlarged. There is no abdominal mass or ascites noted and there is no inguinal adenopathy, Extremities - No edema, Integumentary - There is a small skin lesion in the upper back on the left side which appears consistent with an excoriated seborrheic keratosis, Neurologic - No focal neurologic deficits noted. Lab/Imaging: Test performed on Jun 05, 2021 10:50 Sodium 135 mmol/L TSH 3.01 uIU/mL Potassium 4.0 mmol/L Chloride 97 mmol/L CO2 28 mmol/L Anion Gap 14.0 BUN 11 mg/dL Creatinine 0.8 mg/dL Cr Clearance (Est) 88.59 mL/min Glucose 151 mg/dL Osmolality - Calculated 282 mOsm/kg Calcium 9.1 mg/dL Protein, Total 7.2 g/dL Albumin 4.2 g/dL Globulin 3.0 g/dL Bilirubin, Total 0.5 mg/dL ALT (SGPT) 30 U/L AST (SGOT) 23 U/L Alkaline Phosphatase 115 IU/L WBC 9.4 10 3/uL RBC 4.33 10 6/uL HGB 12.6 g/dL HCT 39.3 % MCV 90.8 fl MCH 29.1 pg MCHC 32.1 g/dL RDW 13.2 % Platelet Count 308 10 3/cmm MPV 11.1 fL Neutrophils 6.13 10 3/uL Lymphocytes 2.3 10 3/uL Monocytes 0.6 10 3/uL Eosinophils 0.2 10 3/uL Basophils 0.1 10 3/uL Neutrophil % 65.6 % Lymphocyte % 24.5 % Monocyte % 6.4 % Eosinophil % 2.0 % Basophils % 0.9 % NRBC % 0 % Problem List: 1. 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 Her tumor was reported to be ER/DE positive and HER-2/cathryn positive. 2. Hypertension. 3. Atrial fibrillation. 4. GERD. 5. Allergic rhinitis. 6. Degenerative disease of the spine. 7. Osteopenia. 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 Her tumor was reported to be ER/DE positive and HER-2/cathryn positive. She underwent ultrasound guided biopsy of the right breast on 02/16/2020, ultrasound-guided biopsy of right axillary lymph node on 03/14/2020, and right breast lumpectomy with axillary sentinel lymph node biopsy on 04/02/2020. I had my initial visit with her I had recommended adjuvant hormonal therapy and also recommended that she see the radiation oncologist to discuss radiation to the right breast. She did see Dr. Garcia on 04/23/2020, and she opted not to take radiation. She had initially declined but ultimately agreed to adjuvant hormonal therapy. In August 2020 she began adjuvant hormonal therapy with anastrozole 1 mg daily. It was stopped 1 month later due to significant increase in joint pain and fatigue. At that point she opted to just continue with expectant management. During follow-up she has continued to have some fatigue, but there was improvement in the joint pain. She has had some ongoing issues with radicular pain in the lower back/left leg, that is being managed at pain clinic. Thus far there has been no evidence of recurrence of the breast cancer. She continues expectant management. She will be scheduled for a follow-up visit in 6 months. Signed By: Donny Robles M.D. <<Signature on File>>
== END 2021-06-05 10:32 | disposition home or self-care (01) ==
LOC: ONCMED 10:39
PROVIDERS: PCP Internal Medicine; Visit Provider Internal Medicine Medical Oncology
DX: D05.11 Intraductal carcinoma in situ of right breast (principal); I10 Essential (primary) hypertension; I48.91 Unspecified atrial fibrillation; K21.9 Gastro-esophageal reflux disease without esophagitis; Z79.899 Other long term (current) drug therapy; M47.9 Spondylosis, unspecified; M85.80 Other specified disorders of bone density and structure, unspecified site
CPT/HCPCS: 36415; 80053; 84443; 85025; G0463

== ENCOUNTER → 2021-06-06 13:15 | Outpatient (BNVA) | payer MEDICARE, OTHER, SELFPAY | PROVIDERS: PCP Internal Medicine; Visit Provider Anesthesiology Pain Medicine | DX: M47.816 Spondylosis without myelopathy or radiculopathy, lumbar region (principal); M51.16 Intervertebral disc disorders with radiculopathy, lumbar region; M79.652 Pain in left thigh; Z79.891 Long term (current) use of opiate analgesic | CPT/HCPCS: 99213 ==

== ENCOUNTER → 2021-10-16 07:44 | Outpatient (BNVA) | payer MEDICARE, OTHER, SELFPAY | PROVIDERS: PCP Internal Medicine; Referring Provider Internal Medicine; Visit Provider Internal Medicine | DX: E04.1 Nontoxic single thyroid nodule (principal); E03.9 Hypothyroidism, unspecified; I48.21 Permanent atrial fibrillation | CPT/HCPCS: 99204 ==

== ENCOUNTER → 2021-12-10 11:01 | Outpatient (BNVA) | payer MEDICARE, OTHER, SELFPAY | PROVIDERS: PCP Internal Medicine; Visit Provider Anesthesiology Pain Medicine | DX: M54.50 Low back pain, unspecified (principal); M79.605 Pain in left leg; Z79.891 Long term (current) use of opiate analgesic | CPT/HCPCS: 99212 ==

== ENCOUNTER 2021-12-17 10:14 | Outpatient (CLI) | payer MEDICARE, OTHER, SELFPAY ==
[2021-12-17 11:43] LABS: Free T4 Free Thyroxine 1.31 ng/dL (0.82-1.77); Thyroid Stimulating Hormone 3.63 uIU/mL (0.27-4.20)
[2021-12-18 16:08] LABS: Thyroglobulin AB <1 IU/mL (< or = 1); Thyroid Peroxidase Antobodies 1 IU/mL (<9)
== END 2021-12-17 10:15 | disposition home or self-care (01) ==
LOC: LAB 10:17
PROVIDERS: Internal Medicine; PCP Internal Medicine; Visit Provider Internal Medicine
DX: E03.9 Hypothyroidism, unspecified (principal); E04.1 Nontoxic single thyroid nodule; I48.21 Permanent atrial fibrillation
CPT/HCPCS: 36415; 84439; 84443; 86376; 86800

== ENCOUNTER → 2021-12-25 15:19 | Outpatient (BNVA) | payer MEDICARE, OTHER, SELFPAY | PROVIDERS: PCP Internal Medicine; Visit Provider Internal Medicine | DX: I48.21 Permanent atrial fibrillation (principal); I10 Essential (primary) hypertension | CPT/HCPCS: 99214 ==

== ENCOUNTER → 2021-12-26 13:35 | Outpatient (BNVA) | payer MEDICARE, OTHER, SELFPAY | PROVIDERS: PCP Internal Medicine; Visit Provider Internal Medicine | DX: E04.1 Nontoxic single thyroid nodule (principal); E03.8 Other specified hypothyroidism; I48.21 Permanent atrial fibrillation | CPT/HCPCS: 99214 ==

== ENCOUNTER 2022-01-07 12:28 | Oncology outpatient (recurring) (ONCR) | payer MEDICARE, OTHER, SELFPAY | END 2022-01-15 23:59 | disposition home or self-care (01) | PROVIDERS: PCP Internal Medicine; Visit Provider Internal Medicine Medical Oncology | DX: Z08 Encounter for follow-up examination after completed treatment for malignant neoplasm (principal); Z85.3 Personal history of malignant neoplasm of breast; R53.83 Other fatigue; Z92.3 Personal history of irradiation | CPT/HCPCS: G0463 ==

== ENCOUNTER 2022-02-26 11:42 | Outpatient (CLI) | payer MEDICARE, OTHER, SELFPAY ==
[2022-02-26 14:35] LABS: Free T4 Free Thyroxine 1.32 ng/dL (0.82-1.77); Thyroid Stimulating Hormone 2.88 uIU/mL (0.27-4.20)
== END 2022-02-26 11:43 | disposition home or self-care (01) ==
LOC: LAB 11:47
PROVIDERS: PCP Internal Medicine; Visit Provider Internal Medicine
DX: E03.8 Other specified hypothyroidism (principal); E04.1 Nontoxic single thyroid nodule; I48.21 Permanent atrial fibrillation
CPT/HCPCS: 36415; 84439; 84443

== ENCOUNTER → 2022-02-28 10:48 | Outpatient (BNVA) | payer MEDICARE, OTHER, SELFPAY | PROVIDERS: PCP Internal Medicine; Visit Provider Internal Medicine | DX: E04.1 Nontoxic single thyroid nodule (principal); E03.9 Hypothyroidism, unspecified; I48.21 Permanent atrial fibrillation; E03.8 Other specified hypothyroidism | CPT/HCPCS: 99214 ==

== ENCOUNTER 2022-03-24 09:55 | Outpatient (CLI) | payer MEDICARE, OTHER, SELFPAY ==
--- NOTE | 2022-03-24 10:15 | MM_ITS ---
WS: [id number] Bilateral diagnostic 3D tomosynthesis digital mammogram, 03/24/2022 Clinical Data: HX OF BREAST CA Comparison: 03/21/2021, 02/01/2020, 12/29/2019, 12/12/2011, 11/01/2010, 10/26/2009. Findings: There are no spiculated masses or clustered calcifications. There is 2.6 cm round density which was a large cyst or seroma seen on prior exams the right axilla. There are large lymph nodes in the left a xilla. No secondary signs of carcinoma are present.. MM/[id number] Impression: 1. Negative bilateral mammograms unchanged. 2. No change in right axillary cyst or seroma. 3. Recommend annual mammograms. BIRADS: 2-Benign FOLLOW UP: 1 Year Follow-up The CAD bad cloth checker was used.
== END 2022-03-24 09:56 | disposition home or self-care (01) ==
PROVIDERS: PCP Internal Medicine; Visit Provider Internal Medicine Medical Oncology
DX: Z85.3 Personal history of malignant neoplasm of breast (principal)
CPT/HCPCS: 77062

== ENCOUNTER 2022-07-02 07:36 | Inpatient (IN) | payer MEDICARE, OTHER, SELFPAY ==
[2022-07-02] VITALS (48 sets, daily range): BP systolic 111–162; BP diastolic 69–94; PULSE 70–110; RESP 14–26; TEMP 36.4–36.7; O2SAT 90–100; BMI 32.9
--- NOTE | 2022-07-02 07:37 | XRR_ITS ---
PROCEDURE INFORMATION: Exam: XR Chest Exam date and time: 07/02/2022 7:40 AM Age: 71 years old Clinical indication: Cough and dyspnea; Additional info: Dyspnea/cough TECHNIQUE: Imaging protocol: Radiologic exam of the chest. Views: 1 view. COMPARISON: CR XR chest 1V portable [id number] 10/30/2020 8:42 PM FINDINGS: Lungs: Unremarkable. No consolidation. Pleural spaces: Unremarkable. No pleural effusion. No pneumothorax. Heart/Mediastinum: Cardiomegaly. Bones/joints: Unremarkable. XR/XR chest 1V portable [id number] IMPRESSION: No acute findings.
--- NOTE | 2022-07-02 07:42 | CT_ITS ---
WS: [id number] CT ABDOMEN AND PELVIS NONCONTRAST HISTORY: Abdominal pain/hematochezia TECHNIQUE: Imaging performed through the abdomen and pelvis. Coronal and sagittal reformats are submi tted. All CT scans at [facility] use at least one of these dose optimization techniques: auto mated exposure control; mA and/or kV adjustment per patient size (includes targeted exams where dose is matched to clinical indication); or iterative reconstruction. DLP: 699.30 mGy.cm COMPARISON: 01/09/2015 Lower thorax: Lung bases are clear. Marked enlargement of the heart. The RIGHT atrium is significantl y increased in size as compared to prior study from 2014. No pericardial effusion. Small hiatal herni a. Liver: Normal size liver. No mass or bile duct dilatation. Gallbladder: Prior cholecystectomy. No bile duct dilatation. Pancreas: Normal size and attenuation. Normal pancreatic duct. No pancreatitis or mass. Spleen: Normal. Adrenal glands: Normal. No mass. Right kidney: Normal size kidney with no mass or hydronephrosis. Left kidney: Normal size kidney with no mass or hydronephrosis. Exophytic cyst from the inferior pole . Cyst measures 1.6 cm. Aorta: Mild atherosclerosis abdominal aorta with no aneurysm. No ascites. There are a few small central mesenteric lymph nodes along with mesenteric misting and st randing. No enlarged lymph nodes. GI tract: Nondistended stomach. No small bowel obstruction is evident. Appendix is normal. Negative c olon. Abdominal wall: Small umbilical hernia contains fat only. Pelvis: Normally distended urinary bladder. No intraluminal filling defect. Normal size uterus. No ad nexal masses or ascites. No adenopathy. Osseous structures: Unremarkable. CT/CT abdomen pelvis wo con [id number] IMPRESSION: 1. No acute abdominal or pelvic abnormalities. No ascites or free air. 2. Melanie mesentery. Nonspecific finding and in the absence of enlarged lymph n odes follow-up is not likely necessary. May be related to edema or inflammation . With no adenopathy less likely neoplastic. 3. Prior cholecystectomy.
--- NOTE | 2022-07-02 07:45 | ED_ITS ---
HPI - Nausea/Vomiting/Diarrhea General: Chief complaint: Nausea/Vomiting/Diarrhea Stated complaint: N/V dizzy Time Seen by Provider: 07/02/22 07:37 Source: patient Mode of arrival: EMS History of Present Illness: 71-year-old female presents to the emergency room with complaint of nausea, vomiting and diarrhea with some hematochezia. Emptiness began approximately 4 days ago. She has a history of previous stage Ia breast CA which was treated with lumpectomy and a short course of oral adjuvant therapy. She is on Xarelto for atrial fibrillation but that was stopped by her primary care doctor approximately 1 week ago because of hematochezia which she states preceded the diarrhea and the dizziness. Dizziness began 2 days ago. She denies any fever sweats chills dysuria urgency or frequency. She felt like she has had increased palpitations the last few days is associated with this as well. MD elicited complaint: nausea, vomiting, diarrhea and abdominal pain Onset (ago): day(s) (3) Description of diarrhea: lose Associated nausea: Yes Location of pain: Diffuse Severity: moderate Quality: cramping Exacerbating factors: none Relieving factors: none Associated symtoms: Reports dizziness and nausea; Denies altered mental status, anxiety, bloating, change in vision, chest pain, cough, diaphoresis, decreased urine output, dysuria, epistaxis, fatigue, fecal incontinence, fevers/chills, headache(s), anorexia, malaise, myalgias, numbness, palpitations, rash, short of breath, syncope, tenesmus, tinnitus or weakness Review of Systems Const: Denies: fever(s), chills, fatigue, malaise or diaphoresis Eyes: Denies: change in vision ENMT: Denies: tinnitus or epistaxis Card: Denies: chest pain, palpitations or syncope Resp: Denies: dyspnea, productive cough or non-productive cough GI: Reports: abdominal pain, nausea and vomiting; Denies: bloating or fecal incontinence : Denies: dysuria Skin/Breast: Denies: rash or pruritus Neuro: Reports: dizziness; Denies: headache(s) Psych: Denies: anxiety PFSH ED PFSH: Medical History Allergic rhinitis Atrial fibrillation Breast cancer GERD (gastroesophageal reflux disease) Hypertension Lumbar disc disease with radiculopathy Osteopenia Thyroid nodule Surgical History H/O breast biopsy (02/2020) Biopsies of right breast and right axillary lymph node History of cataract extraction [address] Garcia History of cholecystectomy History of colonoscopy History of lumpectomy of right breast (03/29/20) Right breast lumpectomy with axillary sentinel lymph node biopsy History of tubal ligation Family History Other CAD (coronary artery disease) Cancer History of breast lump removal History of cholecystectomy Hypertension Social History Smoking and tobacco status: never smoked Alcohol intake: current Alcohol intake frequency: holidays/special occasions only Caregiver/support person: Yes Lives independently: Yes History of recent travel: No Physical Exam Const: COMMON NORMALS: no acute distress EXAM LIMITATIONS: no altered mental status GENERAL APPEARANCE: cooperative and comfortable ORIENTATION/CONSCIOUSNESS: Yes awake, Yes oriented to person, Yes oriented to place and Yes oriented to time HENMT: COMMON NORMALS: normocephalic, atraumatic and hearing grossly normal bilaterally HEAD & SCALP: normocephalic and atraumatic Lymph: LYMPHATIC: no lymphadenopathy noted and no lymphedema noted Resp: COMMON NORMALS: normal respiratory effort, No retractions, No use of accessory muscles and clear to auscultation bilaterally AUSCULTATION: clear to auscultation bilaterally Cardio: COMMON NORMALS: regular rate and No murmurs present (Cardio) RATE: regular rate RHYTHM: abnormal rhythm irregularly irregular GI: COMMON NORMALS: Soft to palpation and No hepatosplenomegaly present AUSCULTATION: Yes normoactive bowel sounds PALPATION: Yes Soft to palpation, No Tenderness to palpation present (GI), No Guarding due to palpation present (GI) and Yes No hepatosplenomegaly present Extremity: COMMON NORMALS: normal to inspection, capillary refill normal, no clubbing, cyanosis or edema, no calf tenderness and no pedal edema Neuro: SENSORIUM/ORIENTATION: Yes oriented to person, Yes oriented to place and Yes oriented to time Skin: COMMON NORMALS: no rashes or lesions noted GENERAL SKIN EXAM: no rashes or lesions noted Course Vital Signs: Vital signs: Vital Signs Temperature 97.6 F 07/02/22 07:37 Pulse Rate 79 07/02/22 11:01 Respiratory Rate 21 H 07/02/22 11:00 Blood Pressure 123/73 07/02/22 11:01 Pulse Oximetry 98 07/02/22 11:00 Oxygen Delivery Me thod 07/02/22 07:37 MDM - Nausea/Vomiting/Diarrhea Medical Decision Making Patient symptoms are improved but not resolved. After liter of fluids we tried to ambulate her she got very lightheaded dizzy and made only a few feet we gave another 500 did orthostatics she still positive. Her hemoglobin is down from a few weeks ago. I am concerned about giving her any more fluids in the emergency room may put her into heart failure specially with a mild anemia with a history of A-fib she is otherwise fine she has no focal neurologic deficits. Will admit to observation discussed Dr. Espinal orders written Medical Records I reviewed the patient's medical records. Lab Data I reviewed the patient's lab results. 07/02/22 07:45 07/02/22 07:45 Radiology Impressions Chest X-Ray 07/02/22 07:37 IMPRESSION: No acute findings. Abdomen/Pelvis CT 07/02/22 07:42 IMPRESSION: 1. No acute abdominal or pelvic abnormalities. No ascites or free air. 2. Melanie mesentery. Nonspecific finding and in the absence of enlarged lymph nodes follow-up is not likely necessary. May be related to edema or inflamm ation. With no adenopathy less likely neoplastic. 3. Prior cholecystectomy. ADDENDUM: 07/02/22905 IMPRESSION: 4. Markedly enlarged RIGHT atrium. Significant change since 2014. Consider follow-up echocardiogram evaluation. Laboratory Results WBC 8.0 10^3/uL (4.0-10.0) 07/02/22 07:45 RBC 4.37 10^6/uL (4.1-5.3) 07/02/22 07:45 Hgb 10.7 g/dL (11.5-15.3) L 07/02/22 07:45 Hct 35.0 % (37.0-47.0) L 07/02/22 07:45 MCV 80.1 fl (81-99) L 07/02/22 07:45 MCH 24.5 pg (28.0-34.0) L 07/02/22 07:45 MCHC 30.6 g/dL (30.0-36.0) 07/02/22 07:45 RDW 14.8 % (12.1-15.1) 07/02/22 07:45 Plt Count 290 10^3/cmm (130-400) 07/02/22 07:45 MPV 12.1 fL (7.4-10.4) H 07/02/22 07:45 Neut % (Auto) 82.2 % 07/02/22 07:45 Lymph % (Auto) 13.8 % 07/02/22 07:45 Dixie % (Auto) 3.1 % 07/02/22 07:45 Eos % (Auto) 0.1 % 07/02/22 07:45 Baso % (Auto) 0.3 % 07/02/22 07:45 Neut # (Auto) 6.54 10^3/uL (1.8-7.7) 07/02/22 07:45 Lymph # (Auto) 1.1 10^3/uL (0.8-4.8) 07/02/22 07:45 Dixie # (Auto) 0.3 10^3/uL (0.2-0.9) 07/02/22 07:45 Eos # (Auto) 0.0 10^3/uL (0.0-0.8) 07/02/22 07:45 Baso # (Auto) 0.0 10^3/uL (0.0-0.1) 07/02/22 07:45 Nucleated RBC % (auto) 0 % 07/02/22 07:45 Nucleated RBCs # 0.0 /100WBC 07/02/22 07:45 Sodium 136 mmol/L (136-145) 07/02/22 07:45 Potassium 3.3 mmol/L (3.5-5.1) L 07/02/22 07:45 Chloride 96 mmol/L (98-107) L 07/02/22 07:45 Carbon Dioxide 24 mmol/L (22-29) 07/02/22 07:45 Anion Gap 19.3 (5-19) H 07/02/22 07:45 BUN 16 mg/dL (8-23) 07/02/22 07:45 Creatinine 0.8 mg/dL (0.5-0.9) 07/02/22 07:45 GFR Calculation Not Reportable 07/02/22 07:45 Glucose 187 mg/dL (65-115) H 07/02/22 07:45 Calculated Osmolality 288 mOsm/kg (285-295) 07/02/22 07:45 Calcium 9.2 mg/dL (8.5-10.5) 07/02/22 07:45 Magnesium 1.8 mg/dL (1.7-2.3) 07/02/22 07:45 Iron 18 ug/dL (37-145) L 07/02/22 07:45 TIBC 457 mcg/dl 07/02/22 07:45 % Saturation 3.9 % (20-50) L 07/02/22 07:45 Unsat Iron Binding 439 ug/dL (112-347) H 07/02/22 07:45 Ferritin 19 ng/mL (15-150) 07/02/22 07:45 Total Bilirubin 0.4 mg/dL (0.15-1.2) 07/02/22 07:45 AST 22 U/L (0-32) 07/02/22 07:45 ALT 18 U/L (0-33) 07/02/22 07:45 Alkaline Phosphatase 118 U/L (35-105) H 07/02/22 07:45 Total Protein 7.8 g/dL (6.6-8.7) 07/02/22 07:45 Albumin 4.4 g/dL (3.5-5.2) 07/02/22 07:45 Globulin 3.4 g/dL (1.3-4.6) 07/02/22 07:45 Urine Color Light yellow (Yellow) 07/02/22 12:56 Urine Appearance Clear (CLEAR) 07/02/22 12:56 Urine pH 7 (5-7) 07/02/22 12:56 Ur Specific [place] 1.010 (1.005-1.030) 07/02/22 12:56 Urine Protein Neg (Negative) 07/02/22 12:56 Urine Glucose (UA) Trace (Normal) H 07/02/22 12:56 Urine Ketones 2+ (Negative) H 07/02/22 12:56 Urine Blood Neg (Negative) 07/02/22 12:56 Urine Nitrate Negative (Negative) 07/02/22 12:56 Urine Bilirubin Neg (Negative) 07/02/22 12:56 Urine Urobilinogen Norm mg/dL (Negative) 07/02/22 12:56 Ur Leukocyte Esterase Negative (Negative) 07/02/22 12:56 Urine RBC 0-4 /hpf (0-2) H 07/02/22 12:56 Urine WBC None /hpf (0-5) 07/02/22 12:56 Ur Squamous Epith Cells 0-4 /hpf (0-5) H 07/02/22 12:56 Amorphous Sediment Trace /hpf 07/02/22 12:56 Urine Bacteria Trace /hpf (NONE) 07/02/22 12:56 Digoxin 0.9 ng/mL (0.6-1.2) 07/02/22 07:45 Discharge Plan Discharge Patient Disposition: Placed in Observation Clinical Impression: Orthostatic hypotension, Atrial fibrillation, Intractable vomiting, Anemia, Rectal bleeding Coding Level of Care Code ED Support Service Tech for Anne Vivar
--- NOTE | 2022-07-02 07:47 | PC.NURSE ---
PT IS PLACED ON CONTINUOUS SPO2, NIBP, AND CM.
[2022-07-02 07:54] LABS: Basophils % 0.3 %; Eosinophils % 0.1 %; Hemoglobin 10.7 g/dL (11.5-15.3); Lymphocytes # 1.1 10^3/uL (0.8-4.8); Lymphocytes % 13.8 %; Mean Corpuscular HGB Conc 30.6 g/dL (30.0-36.0); Mean Corpuscular Hemoglobin 24.5 pg (28.0-34.0); Mean Corpuscular Volume 80.1 fl (81-99); Mean Platelet Volume 12.1 fL (7.4-10.4); Monocytes # 0.3 10^3/uL (0.2-0.9); Monocytes % 3.1 %; Neutrophils # 6.54 10^3/uL (1.8-7.7); Neutrophils % 82.2 %; Nucleated Red Blood Cells % 0 %; Platelet Count 290 10^3/cmm (130-400); Red Blood Count 4.37 10^6/uL (4.1-5.3); Red Cell Distribution Width 14.8 % (12.1-15.1)
--- NOTE | 2022-07-02 07:54 | ECG_ITS ---
[facility] Test Date: 2022-07-02 Pat Name: Ashley Garcia Department: Room: Gender: Female Fiberglass Fabricator: : 1950 Requested By: James Smith Order Number: [id number] Kimani MD: Christina Morales M.D. Measurements Intervals [place] Rate: 78 P: 0 ME: 0 QRS: 7 QRSD: 126 T: 25 QT: 411 QTc: 470 Interpretive Statements ATRIAL FIBRILLATION POSSIBLE RIGHT VENTRICULAR CONDUCTION DELAY [RSR (QR) IN V1/V2] NONSPECIFIC ST & T-WAVE ABNORMALITY ABNORMAL RHYTHM ECG Compared to ECG 10/30/2020 22:32:06 T-wave abnormality now present Ventricular premature complex(es) no longer present Aberrant conduction of supraventricular beat(s) no longer present Incomplete right bundle-branch block no longer present ST (T wave) deviation no longer present Electronically Signed On 07-02-2022 12:53:59 MARBLE HELPER by Christina Morales M.D. [id number]
[2022-07-02 08:12] LABS: Alanine Aminotransferase 18 U/L (0-33); Albumin Level 4.4 g/dL (3.5-5.2); Alkaline Phosphatase 118 U/L (35-105); Anion Gap 19.3 (5-19); Aspartate Amino Transferase 22 U/L (0-32); Blood Urea Nitrogen 16 mg/dL (8-23); Calcium 9.2 mg/dL (8.5-10.5); Carbon Dioxide 24 mmol/L (22-29); Chloride 96 mmol/L (98-107); Digoxin 0.9 ng/mL (0.6-1.2); Globulin 3.4 g/dL (1.3-4.6); Glucose 187 mg/dL (65-115); Osmolality Calculated 288 mOsm/kg (285-295); Potassium 3.3 mmol/L (3.5-5.1); Sodium 136 mmol/L (136-145); Total Bilirubin 0.4 mg/dL (0.15-1.2); Total Protein 7.8 g/dL (6.6-8.7)
[2022-07-02] MEDS: potassium chloride oral liq 20 mEq/15 mL UDC 40 MEQ PO (09:13)
[2022-07-02] MEDS: sodium chloride 0.9% 1,000 ML 999 ML IV (09:13)
--- NOTE | 2022-07-02 10:38 | PC.NURSE ---
VO TO AMB PT. PT AMB 10 FEET AND WAS UNABLE TO CONTINUE SHE REPORTS DT WEAKNESS. DR. GIRON INFORMED VO FOR 500ML OF NS AT 999ML/HR.
[2022-07-02] MEDS: sodium chloride 0.9% 500 ML 999 ML IV (10:41)
--- NOTE | 2022-07-02 11:43 | P.HP_ITS ---
Providers/Chief Complaint Admitting Physician: Pipo Espinal MD, hospitalist Primary Care Provider: Donny Newell DO Chief Complaint: N/V dizzy History of Present Illness Ashley Garcia is a 71 year old female that presents with nausea vomiting and diarrhea noted since Thursday. She felt a little bit better Thursday, but this started recurring late last night/early this morning and she has had multiple episodes of vomiting or diarrhea. When she gets up she feels dizzy. She has not noticed any blood in her stool, or blood in her emesis. She has not really been able to keep her medication down. She has had no fevers, denies any headache. She has had no focal neurological deficits according to her and her family which I questioned her as well. She did have some blood in her stool the last 2 to 3 months. This was always bright red blood, with bowel movements. She is scheduled for colonoscopy soon, this month. She was instructed to stop her Xarelto secondary to the bleeding and did this about a week ago. Since then she has not had any further bleeding. In the emergency department she received IV fluids, and some oral potassium. Review of Systems General: Reports: 10 or more systems reviewed and unremarkable except in HPI and below Const: Reports: fatigue; Denies: fever(s) or chills Eyes: Denies: change in vision ENMT: Denies: throat pain Card: Denies: chest pain Resp: Denies: dyspnea GI: Reports: nausea, vomiting and hematochezia; Denies: abdominal pain, hematemesis or melena : Denies: flank pain Musc: Denies: neck pain Skin/Breast: Denies: rash Neuro: Denies: headache(s) Psych: Denies: anxiety or depression Endo: Denies: polyuria Haresh/Lymph: Denies: easy bruising All/Imm: Denies: urticaria Medications/Allergies Home Medications Medication Instructions Recorded Confirmed Last Taken Type furosemide 40 mg tablet 40 mg PO DAILY 02/20/20 07/02/22 10/30/20 History losartan 100 mg tablet 100 mg PO DAILY 02/20/20 07/02/22 10/30/20 History pantoprazole 40 mg tablet,delayed 40 mg PO DAILY 02/20/20 07/02/22 10/30/20 History release rivaroxaban 20 mg tablet (Xarelto) 20 mg PO DAILY 06/26/20 07/02/22 10/30/20 History amlodipine 10 mg tablet 10 mg PO DAILY 10/30/20 07/02/22 10/30/20 History levothyroxine 25 mcg tablet 25 mcg PO DAILY #90 tabs 10/16/21 07/02/22 Unknown Rx loratadine 10 mg tablet (Allergy 10 mg PO DAILY 01/07/22 07/02/22 Unknown History Relief (loratadine)) potassium chloride 20 mEq 20 meq PO DAILY 01/07/22 07/02/22 Unknown History tablet,extended release metoprolol tartrate 100 mg tablet 150 mg PO BID@0900,1200 #180 tabs 06/10/22 07/02/22 Unknown Rx calcium carbonate 500 mg calcium 500 mg PO DAILY 07/02/22 07/02/22 Unknown History (1,250 mg) tablet digoxin 125 mcg (0.125 mg) tablet 125 mcg PO DAILY 07/02/22 07/02/22 Unknown History meclizine 25 mg tablet 25 mg PO DAILY PRN Dizziness 07/02/22 07/02/22 Unknown History Allergies Allergy/AdvReac Type Severity Reaction Status Date / Time adhesive tape Allergy ALGY-Redness Verified 07/02/22 08:59 of Skin Latex, Natural Rubber Allergy ALGY-Redness Verified 07/02/22 08:59 of Skin PFSH Acute PFSH: Medical History Allergic rhinitis Atrial fibrillation Breast cancer GERD (gastroesophageal reflux disease) Hypertension Lumbar disc disease with radiculopathy Osteopenia Thyroid nodule Surgical History H/O breast biopsy (02/2020) Biopsies of right breast and right axillary lymph node History of cataract extraction [address] Garcia History of cholecystectomy History of colonoscopy History of lumpectomy of right breast (03/29/20) Right breast lumpectomy with axillary sentinel lymph node biopsy History of tubal ligation Family History Other CAD (coronary artery disease) Cancer History of breast lump removal History of cholecystectomy Hypertension Social History Smoking and tobacco status: never smoked Alcohol intake: current Alcohol intake frequency: holidays/special occasions only Caregiver/support person: Yes Lives independently: Yes History of recent travel: No Vitals/I&O/Wt Last Vital Signs Temp 97.6 F 07/02/22 07:37 Pulse 79 07/02/22 11:01 Resp 21 H 07/02/22 11:00 BP 123/73 07/02/22 11:01 Pulse Ox 98 07/02/22 11:00 O2 Del Method 07/02/22 07:37 Weight last 48 hrs Weight 81.647 kg Physical Exam Narrative: General exam is a white female, no distress, asking for a little bit of liquid HEENT: Atraumatic and normocephalic. Pupils equally round. Oropharynx demo nstrates dry mucous membranes. Neck is supple no lymphadenopathy or thyromegaly Cardiovascular regular rate and rhythm without murmur Lungs clear Abdomen is soft. No obvious organomegaly. Bowel sounds are noted. exam was deferred Extremities no cyanosis clubbing or edema, cap refill brisk Skin no rash Neuro no obvious focal deficits Data 07/02/22 07:45 07/02/22 07:45 Other Labs: LFTs are normal with exception of alk phos of 118 Albumin 4.4 Digoxin level 0.[address] demonstrates a vinnie mesentery, a nonspecific finding and prior cholecystectomy. Hiatal hernia is also noted Chest x-ray which I reviewed demonstrates borderline cardiomegaly, no infiltrate EKG which I reviewed demonstrates atrial fibrillation, normal axis, nonspecific ST-T wave changes, enlarged right atrium A&P Assessment and plan (1) Enteritis: Observation initially Patient presents with significant enteritis. Some misting in the mesentery on her CT. We will check a C. difficile. Viral etiology is also in the differential, but with this starting, abating, and returning must consider significant colitis as well. Will initiate ciprofloxacin, Flagyl but this certainly might be amended if C. difficile is positive. Check stool culture. Continue hydration IV Check BMP and CBC tomorrow Observation (2) Intractable vomiting: Secondary to above Protonix 40 mg IV twice daily (3) Dehydration: Boluses given in the emergency department Continue IV fluids, saline, at 100 cc an hour If dizziness persists, consider orthostatic blood pressures (4) Atrial fibrillation: Patient with history of atrial fibrillation. Rate currently under control, but this could change as she has not had her oral medication this morning. As blood pressure is acceptable currently will give 12.5 mg of metoprolol now, and her digoxin. Plan on metoprolol 100 mg twice daily starting this evening. Telemetry Qualifiers: Atrial fibrillation type: permanent Qualified Code(s): I48.21 - Permanent atrial fibrillation (5) Anemia: Has anemia History of blood in stool Colonoscopy is planned. May need EGD as well. Iron studies. MCV is low. I suspect iron deficiency anemia. She reports it has been 10 years or longer since her last screening colonoscopy. Plan Multiple other medical problems as listed in past medical history Full code currently SCDs for DVT prophylaxis. Anticoagulation contraindicated secondary to concern of recent GI bleed and anemia Attestations Medical Necessity Statement*: Will need less than 2 midnight stay for evaluation and treatment of enteritis, dehydration, anemia Diagnoses Enteritis K52.9 Intractable vomiting R11.10 Dehydration E86.0 Atrial fibrillation I48.21 Atrial fibrillation type: permanent Anemia D64.9 Time Spent (min) 40
[2022-07-02 12:14] LABS: Ferritin 19 ng/mL (15-150); Iron 18 ug/dL (37-145); Magnesium 1.8 mg/dL (1.7-2.3); Percent Saturation 3.9 % (20-50); Total Iron Binding Capacity 457 mcg/dl; Unsaturated Iron Binding 439 ug/dL (112-347)
--- NOTE | 2022-07-02 12:19 | PC.NURSE ---
PC TO PHARMACY SPOKE WITH NIKOS ABOUT NEED OF 125MCG DIGOXIN SHE VERBALIZED UNDERSTANDING AND STATED IT WOULD BE MADE AVAILABLE CLINT.
[2022-07-02] MEDS: metoprolol tartrate 25 mg Tablet 12.5 MG PO (12:27)
[2022-07-02] MEDS: pantoprazole 40 mg SDV IVP ×2 (12:29→23:56)
--- NOTE | 2022-07-02 13:15 | PC.NURSE ---
PHARMACY SUPPLIED DIGOXIN
--- NOTE | 2022-07-02 13:22 | PC.NURSE ---
ATTEMPTED TO ADM DIGOXIN 125MCG PT WAS ACTIVELY VOMITING IN ROOM WILL HOLD UNTIL NAUSEA MEDICATION ADM.
[2022-07-02 13:51] LABS: Amorphous Sediment Urine TRACE /hpf; Bacteria Urine TRACE /hpf; Bilirubin Urine Neg (Negative); Blood Urine Neg (Negative); Glucose Urine UA Trace (Normal); Ketones Urine 2+ (Negative); Leukocyte Esterase Urine Negative (Negative); Nitrate Urine Negative (Negative); Protein Urine Neg (Negative); RBC Urine 0-4 /hpf (0-2); Squamous Epithelial Cell Urine 0-4 /hpf (0-5); Urine Appearance Clear (CLEAR); Urine Color Light yellow (Yellow); Urobilinogen Urine Norm (Negative); pH Urine 7 (5-7)
[2022-07-02 13:52] LABS: Add Urine Culture? No
[2022-07-02] MEDS: ondansetron 2 mg/ML SDV 2 mL 4 MG IVP (14:01)
[2022-07-02] MEDS: sodium chloride 0.9% 1,000 ML 100 ML IV (14:03)
[2022-07-02] MEDS: potassium chloride premix 100 ML 50 MEQ IV (14:04)
[2022-07-02] MEDS: ciprofloxacin 400 MG/200 ML PREMIX 200 MG IV (14:04)
[2022-07-02] MEDS: metroNIDAZOLE IV 500 MG/100 ML PREMIX 100 MG IV ×2 (14:04→21:37)
--- NOTE | 2022-07-02 15:11 | PC.NURSE ---
REPORT CALLED TO PRINCESS PATEL.
[2022-07-02] MEDS: iron sucrose 200 MG in sodium chloride 0.9% (100 ml) 100 ML 220 MG IV (16:39)
[2022-07-02] MEDS: metoclopramide 5 mg/mL SDV 2 mL 10 MG IVP (17:57)
[2022-07-02] MEDS: metoprolol tartrate 50 mg Tablet 100 MG PO (17:57)
[2022-07-03] VITALS (8 sets, daily range): BP systolic 118–158; BP diastolic 77–85; PULSE 69–89; RESP 16–18; TEMP 36.4–37; O2SAT 90–96
[2022-07-03] MEDS: ciprofloxacin 400 MG/200 ML PREMIX 200 MG IV ×2 (01:46→16:37)
[2022-07-03] MEDS: sodium chloride 0.9% 1,000 ML 100 ML IV ×2 (04:03→16:33)
[2022-07-03 05:07] LABS: Basophils % 0.1 %; Eosinophils % 0.3 %; Hematocrit 30.3 % (37.0-47.0); Lymphocytes # 1.3 10^3/uL (0.8-4.8); Lymphocytes % 14.9 %; Mean Corpuscular HGB Conc 29.7 g/dL (30.0-36.0); Mean Corpuscular Hemoglobin 24.6 pg (28.0-34.0); Mean Corpuscular Volume 82.8 fl (81-99); Mean Platelet Volume 11.5 fL (7.4-10.4); Monocytes # 0.7 10^3/uL (0.2-0.9); Monocytes % 7.9 %; Neutrophils # 6.54 10^3/uL (1.8-7.7); Neutrophils % 76.2 %; Nucleated Red Blood Cells % 0 %; Platelet Count 218 10^3/cmm (130-400); Red Blood Count 3.66 10^6/uL (4.1-5.3); Red Cell Distribution Width 15.1 % (12.1-15.1); White Blood Count 8.6 10^3/uL (4.0-10.0)
[2022-07-03 05:36] LABS: Alanine Aminotransferase 14 U/L (0-33); Albumin Level 3.2 g/dL (3.5-5.2); Alkaline Phosphatase 95 U/L (35-105); Anion Gap 15.4 (5-19); Aspartate Amino Transferase 17 U/L (0-32); Blood Urea Nitrogen 8 mg/dL (8-23); Calcium 8.2 mg/dL (8.5-10.5); Carbon Dioxide 22 mmol/L (22-29); Chloride 102 mmol/L (98-107); Glucose 108 mg/dL (65-115); Magnesium 1.8 mg/dL (1.7-2.3); Osmolality Calculated 281 mOsm/kg (285-295); Potassium 3.4 mmol/L (3.5-5.1); Sodium 136 mmol/L (136-145); Total Bilirubin 0.3 mg/dL (0.15-1.2); Total Protein 6.2 g/dL (6.6-8.7)
[2022-07-03] MEDS: metroNIDAZOLE IV 500 MG/100 ML PREMIX 100 MG IV ×3 (05:38→21:54)
[2022-07-03] MEDS: levothyroxine 25 mcg Tablet PO (08:42)
[2022-07-03] MEDS: potassium chloride ER 20 mEq Tablet 40 MEQ PO (09:34)
[2022-07-03] MEDS: metoprolol tartrate 50 mg Tablet 100 MG PO ×2 (09:34→17:44)
[2022-07-03] MEDS: digoxin 125 mcg Tablet PO (09:34)
--- NOTE | 2022-07-03 13:50 | PM.PN ---
Subjective Subjective: Ashley reports she does feel better. She is still significantly dizzy, when she gets up to walk and initially when she gets up to sit. She states that when she last got up to walk she thought she was going to faint. She reports she has no problems with dizziness just upon opening her eyes. Her nausea has gone away. She is no longer having any diarrhea. She is able to eat small amounts. However, with her big concern of fall there is a question regarding discharge. Medications: Reviewed: Yes Vitals/I&O/Wt Last Vital Signs Temp 97.6 F 07/03/22 12:00 Pulse 69 07/03/22 12:00 Resp 18 07/03/22 12:00 BP 135/85 07/03/22 12:00 Pulse Ox 93 07/03/22 12:00 O2 Del Method 07/03/22 12:00 07/02/22 07/03/22 07/03/22 22:59 06:59 14:59 Intake Total 780 / 2279 1430 / 3709 480 / 480 Output Total 600 / 600 Balance 780 / 2279 830 / 3109 480 / 480 Weight last 48 hrs Weight 81.647 kg Physical Exam Narrative: General exam no distress Eyes: No obvious nystagmus Neck is supple no lymphadenopathy or thyromegaly Cardiovascular regular rate and rhythm without murmur Lungs clear Abdomen is soft. No obvious organomegaly. Bowel sounds are noted. No tenderness Extremities no cyanosis clubbing or edema, cap refill brisk Skin no rash Neuro no obvious focal deficits Data 07/03/22 04:47 07/03/22 04:47 A&P Assessment and plan (1) Enteritis: Patient presents with significant enteritis. Some misting in the mesentery on her CT. We will check a C. difficile. Viral etiology is also in the differential, but with this starting, abating, and returning must consider significant colitis as well. Continue ciprofloxacin, Flagyl Stool studies ordered, but not collected as patient has had no further bowel movements Continue hydration IV Check BMP and CBC tomorrow Improving but still significant fall risk, and significant dizziness upon arising (2) Intractable vomiting: Secondary to above Change Protonix to p.o. This is significantly improved so diet has been initiated (3) Dehydration: Continue fluids Orthostatic blood pressure monitoring (4) Atrial fibrillation: Continue metoprolol 100 mg twice daily currently. This is at lower dose secondary to anemia, lower blood pressure on admission. Norvasc has been discontinued as well. (5) Anemia: Iron deficient History of blood in stool Colonoscopy is planned. May need EGD as well. Received iron transfusion yesterday. Repeat today CBC in the morning Plan Hypertension, Norvasc discontinued at this time secondary to lower blood pressures multiple other medical problems as listed in past medical history Full code currently SCDs for DVT prophylaxis. Anticoagulation contraindicated secondary to concern of recent GI bleed and anemia Attestations Medical Necessity Statement*: Needs continued hospitalization for further hydration, as patient has significant dizziness upon arising with high fall risk. Coding Level of Care Code Acute Code for Chg Fwd Diagnoses Enteritis K52.9 Intractable vomiting R11.10 Dehydration E86.0 Atrial fibrillation I48.91 Anemia D64.9
[2022-07-03] MEDS: iron sucrose 200 MG in sodium chloride 0.9% (100 ml) 100 ML 220 MG IV (14:16)
[2022-07-03] MEDS: meclizine 25 mg tablet PO (14:16)
[2022-07-03] MEDS: pantoprazole DR 40 mg Tablet PO (17:44)
[2022-07-04] MEDS: ciprofloxacin 400 MG/200 ML PREMIX 200 MG IV (01:12)
[2022-07-04 03:43] VITALS: BP 126/84; PULSE 75; RESP 16; TEMP 36.9; O2SAT 92
[2022-07-04] MEDS: meclizine 25 mg tablet PO (05:21)
[2022-07-04] MEDS: metroNIDAZOLE IV 500 MG/100 ML PREMIX 100 MG IV (05:23)
[2022-07-04 05:24] LABS: Basophils % 0.4 %; Eosinophils # 0.1 10^3/uL (0.0-0.8); Eosinophils % 0.7 %; Hematocrit 29.3 % (37.0-47.0); Hemoglobin 8.7 g/dL (11.5-15.3); Lymphocytes # 1.5 10^3/uL (0.8-4.8); Lymphocytes % 14.1 %; Mean Corpuscular HGB Conc 29.7 g/dL (30.0-36.0); Mean Corpuscular Volume 80.9 fl (81-99); Mean Platelet Volume 11.7 fL (7.4-10.4); Monocytes # 0.9 10^3/uL (0.2-0.9); Monocytes % 8.7 %; Neutrophils # 7.99 10^3/uL (1.8-7.7); Neutrophils % 75.1 %; Nucleated Red Blood Cells % 0 %; Platelet Count 217 10^3/cmm (130-400); Red Blood Count 3.62 10^6/uL (4.1-5.3); Red Cell Distribution Width 15.3 % (12.1-15.1); White Blood Count 10.6 10^3/uL (4.0-10.0)
[2022-07-04 05:46] LABS: Anion Gap 13.8 (5-19); Blood Urea Nitrogen 5 mg/dL (8-23); Calcium 8.5 mg/dL (8.5-10.5); Carbon Dioxide 23 mmol/L (22-29); Chloride 104 mmol/L (98-107); Glucose 119 mg/dL (65-115); Magnesium 1.8 mg/dL (1.7-2.3); Osmolality Calculated 282 mOsm/kg (285-295); Potassium 3.8 mmol/L (3.5-5.1); Sodium 137 mmol/L (136-145)
--- NOTE | 2022-07-04 06:39 | PC.NURSE ---
IV IV leaking this am. IV was removed. Pt would like to wait until she sees the Dr this morning. Thinks she is going home. No IV meds due at this time
[2022-07-04] MEDS: levothyroxine 25 mcg Tablet PO (07:47)
[2022-07-04 08:00] VITALS: BP 127/81; BP 166/117; BP 169/97; BP 174/82; PULSE 102; PULSE 104; PULSE 90; PULSE 91; RESP 17; TEMP 36.9; O2SAT 90
--- NOTE | 2022-07-04 08:39 | PM.DCS ---
Discharge Providers Date of Admission: 07/03/22 15:38 Date of Discharge: July 04, 2022 Attending Provider at Admission: Pipo Espinal MD Attending Provider at Discharge: Pipo Espinal MD Primary Care Provider: Donny Newell DO Diagnoses at Discharge Discharge Diagnosis (1) Enteritis: Status: Acute (2) Intractable vomiting: Status: Acute (3) Dehydration: Status: Acute (4) Atrial fibrillation: Status: Acute (5) Anemia: Status: Acute Reason for Visit Reason for Visit: N/V dizzy Hospital Course Hospital Course Ashley reported to the hospital with prior history of blood in her stool a week before, feeling very weak, and severe dizziness. She is also had significant vomiting, and diarrhea. On admission she was orthostatic in the emergency department, and significantly anemic. She was initially placed in observation and rehydrated. Hemoglobin dropped significantly to 9. She was iron deficient on her studies. She received iron transfusion, continued fluids. By the second day of hospital stay she had improved but was still very dizzy with high fall risk. Therefore hydration continued, she was encouraged to get up with assistance, and by the next day she was greatly improved and able to ambulate without significant dizziness. Discharge hemoglobin 8.7. She will be discharged on Protonix 40 mg twice daily, antibiotics for 5 more days for concern of colitis, and follow-up with her primary care provider. She will need an endoscopy, likely EGD and colonoscopy in about [address] scan of abdomen and pelvis done at the hospital on admission demonstrated vinnie mesentery, and no other specific findings. She had been holding her Xarelto 1 week prior to admission. She was given an opportunity to ask questions, and agreed with the plan. Multiple medications were held on discharge to try to prevent hypotension. Physical Exam Narrative: General exam no distress Neck is supple Cardiovascular irregular, irregular rhythm without murmur Lungs clear Abdomen is soft, positive bowel sounds, no pain Extremities no cyanosis clubbing or edema Neuro no focal deficits Skin no rash Discharge Data Studies Completed and Pending Completed Studies During Hospitalization Category Date Time Status CT abdomen pelvis wo con [id number] Stat Cat Scan 07/02/22 07:42 Completed XR chest 1V portable [id number] Stat Exams 07/02/22 07:37 Completed Pending at discharge Category Date Time Status CDIFF [Clostridioides Difficile PCR] Routine Lab 07/02/22 11:47 Uncollected Stool Culture, Bacterial [Enteric Bacterial Panel by Lab 07/02/22 11:47 Uncollected PCR] Routine Radiology Impressions Chest X-Ray 07/02/22 07:37 IMPRESSION: No acute findings. Abdomen/Pelvis CT 07/02/22 07:42 IMPRESSION: 1. No acute abdominal or pelvic abnormalities. No ascites or free air. 2. Vinnie mesentery. Nonspecific finding and in the absence of enlarged lymph nodes follow-up is not likely necessary. May be related to edema or inflammation. With no adenopathy less likely neoplastic. 3. Prior cholecystectomy. ADDENDUM: 07/02/22905 IMPRESSION: 4. Markedly enlarged RIGHT atrium. Significant change since 2014. Consider follow-up echocardiogram evaluation. Laboratory Results WBC 10.6 10^3/uL (4.0-10.0) H 07/04/22 05:05 RBC 3.62 10^6/uL (4.1-5.3) L 07/04/22 05:05 Hgb 8.7 g/dL (11.5-15.3) L 07/04/22 05:05 Hct 29.3 % (37.0-47.0) L 07/04/22 05:05 MCV 80.9 fl (81-99) L 07/04/22 05:05 MCH 24.0 pg (28.0-34.0) L 07/04/22 05:05 MCHC 29.7 g/dL (30.0-36.0) L 07/04/22 05:05 RDW 15.3 % (12.1-15.1) H 07/04/22 05:05 Plt Count 217 10^3/cmm (130-400) 07/04/22 05:05 MPV 11.7 fL (7.4-10.4) H 07/04/22 05:05 Neut % (Auto) 75.1 % 07/04/22 05:05 Lymph % (Auto) 14.1 % 07/04/22 05:05 [place] % (Auto) 8.7 % 07/04/22 05:05 Eos % (Auto) 0.7 % 07/04/22 05:05 Baso % (Auto) 0.4 % 07/04/22 05:05 Neut # (Auto) 7.99 10^3/uL (1.8-7.7) H 07/04/22 05:05 Lymph # (Auto) 1.5 10^3/uL (0.8-4.8) 07/04/22 05:05 [place] # (Auto) 0.9 10^3/uL (0.2-0.9) 07/04/22 05:05 Eos # (Auto) 0.1 10^3/uL (0.0-0.8) 07/04/22 05:05 Baso # (Auto) 0.0 10^3/uL (0.0-0.1) 07/04/22 05:05 Nucleated RBC % (auto) 0 % 07/04/22 05:05 Nucleated RBCs # 0.0 /100WBC 07/04/22 05:05 Sodium 137 mmol/L (136-145) 07/04/22 05:05 Potassium 3.8 mmol/L (3.5-5.1) 07/04/22 05:05 Chloride 104 mmol/L (98-107) 07/04/22 05:05 Carbon Dioxide 23 mmol/L (22-29) 07/04/22 05:05 Anion Gap 13.8 (5-19) 07/04/22 05:05 BUN 5 mg/dL (8-23) L 07/04/22 05:05 Creatinine 0.6 mg/dL (0.5-0.9) 07/04/22 05:05 GFR Calculation Not Reportable 07/04/22 05:05 Glucose 119 mg/dL (65-115) H 07/04/22 05:05 Calculated Osmolality 282 mOsm/kg (285-295) L 07/04/22 05:05 Calcium 8.5 mg/dL (8.5-10.5) 07/04/22 05:05 Magnesium 1.8 mg/dL (1.7-2.3) 07/04/22 05:05 Iron 18 ug/dL (37-145) L 07/02/22 07:45 TIBC 457 mcg/dl 07/02/22 07:45 % Saturation 3.9 % (20-50) L 07/02/22 07:45 Unsat Iron Binding 439 ug/dL (112-347) H 07/02/22 07:45 Ferritin 19 ng/mL (15-150) 07/02/22 07:45 Total Bilirubin 0.3 mg/dL (0.15-1.2) 07/03/22 04:47 AST 17 U/L (0-32) 07/03/22 04:47 ALT 14 U/L (0-33) 07/03/22 04:47 Alkaline Phosphatase 95 U/L (35-105) 07/03/22 04:47 Total Protein 6.2 g/dL (6.6-8.7) L D 07/03/22 04:47 Albumin 3.2 g/dL (3.5-5.2) L 07/03/22 04:47 Globulin 3.0 g/dL (1.3-4.6) 07/03/22 04:47 Urine Color Light yellow (Yellow) 07/02/22 12:56 Urine Appearance Clear (CLEAR) 07/02/22 12:56 Urine pH 7 (5-7) 07/02/22 12:56 Ur Specific [place] 1.010 (1.005-1.030) 07/02/22 12:56 Urine Protein Neg (Negative) 07/02/22 12:56 Urine Glucose (UA) Trace (Normal) H 07/02/22 12:56 Urine Ketones 2+ (Negative) H 07/02/22 12:56 Urine Blood Neg (Negative) 07/02/22 12:56 Urine Nitrate Negative (Negative) 07/02/22 12:56 Urine Bilirubin Neg (Negative) 07/02/22 12:56 Urine Urobilinogen Norm mg/dL (Negative) 07/02/22 12:56 Ur Leukocyte Esterase Negative (Negative) 07/02/22 12:56 Urine RBC 0-4 /hpf (0-2) H 07/02/22 12:56 Urine WBC None /hpf (0-5) 07/02/22 12:56 Ur Squamous Epith Cells 0-4 /hpf (0-5) H 07/02/22 12:56 Amorphous Sediment Trace /hpf 07/02/22 12:56 Urine Bacteria Trace /hpf (NONE) 07/02/22 12:56 Digoxin 0.9 ng/mL (0.6-1.2) 07/02/22 07:45 Vitals Last Vital Signs Temp 98.4 F 07/04/22 08:00 Pulse 91 07/04/22 08:00 Resp 17 07/04/22 08:00 BP 174/82 07/04/22 08:00 Pulse Ox 90 07/04/22 08:00 O2 Del Method 07/03/22 12:00 Discharge Plan Discharge Patient Disposition: Home Condition: Stable Prescriptions: New pantoprazole 40 mg Tablet,Delayed Release (Dr/Ec) 40 mg PO BID Qty: 60 0RF ciprofloxacin HCl [Cipro] 500 mg tablet 500 mg PO BID Qty: 10 0RF metronidazole 500 mg tablet 500 mg PO TID Qty: 15 0RF Continued loratadine [Allergy Relief (loratadine)] 10 mg tablet 10 mg PO DAILY levothyroxine 25 mcg tablet 25 mcg PO DAILY Qty: 90 3RF Rx Instructions: Take one tablet by mouth 30 minutes before breakfast or any other medications. metoprolol tartrate 100 mg tablet 150 mg PO BID@0900,1200 Qty: 180 3RF Calcium 500 500 mg calcium (1,250 mg) Tablet 500 mg PO DAILY meclizine 25 mg Tablet 25 mg PO DAILY PRN (Reason: Dizziness) digoxin 125 mcg (0.125 mg) tablet 125 mcg PO DAILY Discontinued losartan 100 mg tablet 100 mg PO DAILY pantoprazole 40 mg tablet,delayed release (DR/EC) 40 mg PO DAILY furosemide 40 mg tablet 40 mg PO DAILY Xarelto 20 mg tablet 20 mg PO DAILY Rx Instructions: MED ON HOLD must administer with evening meal potassium chloride 20 mEq tablet extended release 20 meq PO DAILY amlodipine 10 mg tablet 10 mg PO DAILY Discharge Orders: Discharge Order (Routine); Ordered 07/04/22 Ordered By: Pipo Espinal Referrals: Donny Newell DO [Primary Care Provider] - 4-7 days (CBC on follow-up) Discharge Diet: Cardiac Discharge Activity: Increase activity as tolerated Patient Instructions: Opioid Safety, Pain Management Activity Restrictions/Additional Instructions: Take all medicine as prescribed Follow-up with your primary care provider 3 to 5 days, CBC on follow-up Keep your appointment for endoscopy, although this may need to be rescheduled Note the changes in your medication Return for any concerns Patient's Health Concerns: Dizziness, anemia Assessment: Orthostatic hypotension Anemia, Plan of Treatment: Iron infusion given in the hospital Hold off on Xarelto currently Follow-up for endoscopy Discharge Attestations Time Spent in Discharge Care*: greater than 30 min Quality Metrics Clinical Quality Measures [ No reported AMI, CVA or VTE this stay] Coding Level of Care Code 46546 Total time (in minutes) for Discharge: 37 Diagnoses Enteritis K52.9 Intractable vomiting R11.10 Dehydration E86.0 Atrial fibrillation I48.91 Anemia D64.9
[2022-07-04 08:41] VITALS: PULSE 78
[2022-07-04] MEDS: digoxin 125 mcg Tablet PO (08:41)
[2022-07-04] MEDS: pantoprazole DR 40 mg Tablet PO (08:41)
[2022-07-04] MEDS: metoprolol tartrate 50 mg Tablet 100 MG PO (08:41)
[2022-07-04] MEDS: metoprolol tartrate 50 mg Tablet PO (09:05)
[2022-07-04 10:54] VITALS: BP 116/78; PULSE 79; RESP 18; TEMP 36.9; O2SAT 96
[2022-07-04 12:40] VITALS: BP 116/78; PULSE 79; RESP 18; TEMP 36.9; O2SAT 96
== END 2022-07-04 11:30 | disposition home or self-care (01) | DRG 392 ==
LOC: ER 14:10 → MEDSURG 20:27
PROVIDERS: Admitting Provider Internal Medicine; Emergency Provider Family Medicine; PCP Internal Medicine; Visit Provider Internal Medicine
DX: K52.9 Noninfective gastroenteritis and colitis, unspecified (principal); I48.21 Permanent atrial fibrillation; D50.9 Iron deficiency anemia, unspecified; I95.1 Orthostatic hypotension; E86.0 Dehydration; Z85.3 Personal history of malignant neoplasm of breast; K21.9 Gastro-esophageal reflux disease without esophagitis; I10 Essential (primary) hypertension; M54.16 Radiculopathy, lumbar region; E04.1 Nontoxic single thyroid nodule
CPT/HCPCS: 36415; 71045; 74176; 80048; 80053; 80162; 81001; 82728; 83540; 83550; 83735; 85025; 93005; 96365; 96375; 99285; C9113; G0378; J0744; J1756; J2405; J2765; J3480; J3490; J7030; J7040; J8597

== ENCOUNTER → 2022-07-29 15:01 | Outpatient (BNVA) | payer MEDICARE, OTHER, SELFPAY | PROVIDERS: PCP Physician Assistant; Visit Provider Nurse Practitioner Family | DX: I48.91 Unspecified atrial fibrillation (principal); I10 Essential (primary) hypertension; Z79.01 Long term (current) use of anticoagulants | CPT/HCPCS: 99214 ==

== ENCOUNTER 2022-08-06 08:04 | Outpatient (CLI) | payer MEDICARE, OTHER, SELFPAY ==
--- NOTE | 2022-08-06 08:20 | USCV_ITS ---
Ashley Garcia Age: 71 Gender: F : 1950 Exam Date: 08/06/2022 08:54 Ordering Phys: Sayda Starkey Technologist: LORI Exam Location: [facility] – [place] Indication: RIGHT ATRIAL ENLARGEMENT BP: 180 / 100 HR: 68 Rhythm: Atrial fibrillation Technical Quality: Adequate MEASUREMENTS (Male / Female) Normal Values 2D ECHO LVOT Diameter 2.0 cm LV Ejection Fraction MOD 2C 56.5 % LV Ejection Fraction 2C AL 55.8 % LA Diameter 3.5 cm LA Width 4.1 cm LA Height 5.2 cm RA Width 3.5 cm RA Height 5.4 cm Aorta at Sinotubular Diameter 2.7 cm IVC Diameter 2.6 cm M-MODE Aortic Annulus Diameter 3.2 cm LA Ao Ratio MM 0.9 MV E Point Septal Separation 1.3 cm DOPPLER AV Peak Velocity 127.3 cm/s LVOT Peak Velocity 99.0 cm/s AV Area Cont Eq vti 2.5 cm squared AV Area Cont Eq pk 2.5 cm squared MV Peak Velocity 119.0 cm/s MV Area PHT 3.3 cm squared MV E' Velocity 55.5 cm/s Mitral E to MV E' Ratio 7.7 Mitral E to LV E' Lateral Ratio 8.3 Mitral E to LV E' Septal Ratio 7.2 TR Peak Velocity 298.3 cm/s TR Peak Gradient 35.6 mmHg TR Mean Velocity 258.1 cm/s TR Mean Gradient 26.8 mmHg TR Velocity Time Integral 111.9 cm TV Peak E Velocity 73.0 cm/s Right Atrial Pressure 15.0 mmHg Pulmonary Artery Systolic Pressu 50.6 mmHg PV Peak Velocity 92.0 cm/s FINDINGS Left Ventricle Left ventricle is normal in size. LV systolic function is normal with EF of 55 to 60%. No regional wall abnormalities are seen. Diastolic function is indeterminate because of atrial fibrillation Right Ventricle Normal in size and function Right Atrium Dilated. RA pressure is elevated and is >10mmHg. Left Atrium Severely dilated Mitral Valve Structurally normal mitral valve. Mild mitral regurgitation. Aortic Valve Structurally normal aortic valve. No significant stenosis or regurgitation. Tricuspid Valve Mild tricuspid regurgitation. RVSP is 35-40 mmHg. This is consistent with mild pulmonary hypertension. Pulmonic Valve Not well-visualized Pericardium Normal Aorta Normal in size IVC Dilated CONCLUSIONS LV systolic function is normal with EF of 55-60% Diastolic function is indeterminate because of atrial fibrillation Biatrial enlargement RA pressure is elevated Mild mitral regurgitation Mild tricuspid regurgitation. Mild pulmonary hypertension Compared to prior echocardiogram from 2019, no significant changes are seen Cem Huerta MD (Electronically Signed) Final Date: 16 August 2022 09:39 S
== END 2022-08-06 08:05 | disposition home or self-care (01) ==
LOC: RAD 08:05
PROVIDERS: PCP Physician Assistant; Visit Provider Physician Assistant
DX: I08.1 Rheumatic disorders of both mitral and tricuspid valves (principal); I27.20 Pulmonary hypertension, unspecified
CPT/HCPCS: 93306

== ENCOUNTER 2022-08-13 06:00 | Outpatient (RCR) | payer MEDICARE, OTHER, SELFPAY | END 2022-08-15 23:59 | disposition home or self-care (01) | LOC: SPT 06:00 | PROVIDERS: PCP Physician Assistant; Visit Provider Physician Assistant | DX: R53.1 Weakness (principal); R42 Dizziness and giddiness | CPT/HCPCS: 97162 ==

== ENCOUNTER 2022-08-27 14:53 | Oncology outpatient (recurring) (ONCR) | payer MEDICARE, OTHER, SELFPAY | END 2022-09-14 23:59 | disposition home or self-care (01) | PROVIDERS: PCP Physician Assistant; Visit Provider Nurse Practitioner Family | DX: Z08 Encounter for follow-up examination after completed treatment for malignant neoplasm (principal); Z85.3 Personal history of malignant neoplasm of breast; R53.83 Other fatigue; Z92.3 Personal history of irradiation; Z92.23 Personal history of estrogen therapy | CPT/HCPCS: 99213 ==

== ENCOUNTER → 2022-09-24 12:54 | Outpatient (BNVA) | payer MEDICARE, OTHER, SELFPAY | PROVIDERS: PCP Physician Assistant; Visit Provider Internal Medicine | DX: I48.91 Unspecified atrial fibrillation (principal); I10 Essential (primary) hypertension | CPT/HCPCS: 99214 ==

== ENCOUNTER 2022-10-27 11:45 | Outpatient (CLI) | payer MEDICARE, OTHER, SELFPAY | END 2022-10-27 11:46 | disposition home or self-care (01) | PROVIDERS: PCP Physician Assistant; Visit Provider Internal Medicine | DX: I48.21 Permanent atrial fibrillation (principal); E03.9 Hypothyroidism, unspecified | CPT/HCPCS: 36415; 84439; 84443 ==

== ENCOUNTER → 2022-10-29 10:48 | Outpatient (BNVA) | payer MEDICARE, OTHER, SELFPAY | PROVIDERS: PCP Physician Assistant; Visit Provider Internal Medicine | DX: E03.9 Hypothyroidism, unspecified (principal); E04.1 Nontoxic single thyroid nodule; E03.8 Other specified hypothyroidism; I48.91 Unspecified atrial fibrillation; Z79.890 Hormone replacement therapy | CPT/HCPCS: 99214 ==

== ENCOUNTER 2022-11-10 10:54 | Outpatient (CLI) | payer MEDICARE, OTHER, SELFPAY ==
--- NOTE | 2022-11-10 11:00 | US_ITS ---
WS: [id number] THYROID ULTRASOUND HISTORY: nodule COMPARISON: 09/17/2021 Right lobe: 1.5 cm x 1.4 cm x 3.8 cm (w x ap x l). Volume: 4.4 cm3. Normal size and echotexture. No significant are dominant nodules are present. Left lobe: 1.4 cm x 1.1 cm x 3.9 cm (w x ap x l). Volume: 3.1 cm3. Normal size and vascularity. Again noted is echogenic focus in the mid to inferior gland measuring 3 mm. No suspicious mass. No echogenic foci. Isthmus: 0.1 cm. US/US thyroid [id number] IMPRESSION: Stable thyroid ultrasound. No suspicious masses.
== END 2022-11-10 10:55 | disposition home or self-care (01) ==
PROVIDERS: PCP Physician Assistant; Visit Provider Internal Medicine
DX: E03.9 Hypothyroidism, unspecified (principal); E04.1 Nontoxic single thyroid nodule
CPT/HCPCS: 76536

== ENCOUNTER → 2022-12-29 12:20 | Outpatient (BNVA) | payer MEDICARE, OTHER, SELFPAY | PROVIDERS: PCP Physician Assistant; Visit Provider Internal Medicine Cardiovascular Disease | DX: I48.91 Unspecified atrial fibrillation (principal); Z79.82 Long term (current) use of aspirin; I10 Essential (primary) hypertension | CPT/HCPCS: 99213 ==

== ENCOUNTER → 2023-03-25 13:58 | Outpatient (BNVA) | payer MEDICARE, OTHER, SELFPAY | PROVIDERS: PCP Physician Assistant; Visit Provider Internal Medicine | DX: I48.91 Unspecified atrial fibrillation (principal); I10 Essential (primary) hypertension | CPT/HCPCS: 99214 ==

== ENCOUNTER 2023-03-26 12:53 | Outpatient (CLI) | payer MEDICARE, OTHER, SELFPAY ==
--- NOTE | 2023-03-26 13:00 | MM_ITS ---
WS: [id number] BILATERAL 3D TOMOSYNTHESIS DIGITAL DIAGNOSTIC MAMMOGRAPHY WITH CAD CLINICAL INFORMATION: history of breast Cancer HISTORY: History of RIGHT breast cancer. COMPARISON: 2021 TECHNIQUE: Bilateral CC, MLO, and ML views. FINDINGS: The breasts are composed of heterogeneous fibroglandular density, which can limit the detection of sm all underlying mass lesions. Vascular calcification. Stable RIGHT axillary cyst or seroma No suspicious focal mass, asymmetry, calcifications, or architectural distortion. No evidence of judi gnancy. IMPRESSION: MM/[place] [id number] BI-RADS: 2-Benign FOLLOW UP: 1 Year Follow-up Recommend return to annual diagnostic mammography.
== END 2023-03-26 12:54 | disposition home or self-care (01) ==
LOC: RAD 12:54
PROVIDERS: PCP Physician Assistant; Visit Provider Nurse Practitioner Family
DX: Z85.3 Personal history of malignant neoplasm of breast (principal)
CPT/HCPCS: 77062; G0279

== ENCOUNTER 2023-04-01 10:32 | Oncology outpatient (recurring) (ONCR) | payer MEDICARE, OTHER, SELFPAY ==
[2023-04-01 10:50] VITALS: BP 157/90; PULSE 90; RESP 16; TEMP 36.9; O2SAT 97
[2023-04-01 10:55] LABS: Basophils # 0.1 10^3/uL (0.0-0.1); Basophils % 0.9 %; Eosinophils # 0.3 10^3/uL (0.0-0.8); Eosinophils % 2.8 %; Hematocrit 39.3 % (36-47); Lymphocytes # 2.4 10^3/uL (0.8-4.8); Lymphocytes % 26.7 %; Mean Corpuscular HGB Conc 32.1 g/dL (30-55); Mean Corpuscular Hemoglobin 27.3 pg (27-33); Mean Corpuscular Volume 85.2 fl (85-98); Mean Platelet Volume 11.1 fL (7.4-10.4); Monocytes # 0.6 10^3/uL (0.2-0.9); Monocytes % 6.6 %; Neutrophils # 5.67 10^3/uL (1.8-7.7); Neutrophils % 62.3 %; Nucleated Red Blood Cells % 0 %; Platelet Count 280 10^3/cmm (157-399); Red Blood Count 4.61 10^6/uL (3.85-5.65); Red Cell Distribution Width 14.2 % (12.1-15.1); White Blood Count 9.08 10^3/uL (3.29-11.43)
[2023-04-01 11:14] LABS: Alanine Aminotransferase 28 U/L (0-33); Alkaline Phosphatase 161 U/L (35-105); Anion Gap 16.7 (5-19); Aspartate Amino Transferase 29 U/L (0-32); Blood Urea Nitrogen 10 mg/dL (8-23); Calcium 9.2 mg/dL (8.5-10.5); Carbon Dioxide 25 mmol/L (22-29); Chloride 99 mmol/L (98-107); Globulin 3.4 g/dL (1.3-4.6); Glucose 138 mg/dL (65-115); Osmolality Calculated 285 mOsm/kg (285-295); Potassium 3.7 mmol/L (3.5-5.1); Sodium 137 mmol/L (136-145); Total Bilirubin 0.5 mg/dL (0.15-1.2); Total Protein 7.4 g/dL (6.6-8.7)
== END 2023-04-16 23:59 | disposition home or self-care (01) ==
LOC: ONCMED 10:32
PROVIDERS: PCP Physician Assistant; Visit Provider Nurse Practitioner Family
DX: Z08 Encounter for follow-up examination after completed treatment for malignant neoplasm (principal); Z85.3 Personal history of malignant neoplasm of breast; R53.83 Other fatigue; Z92.3 Personal history of irradiation
CPT/HCPCS: 36415; 80053; 85025; 99213

== ENCOUNTER 2023-04-06 14:21 | Outpatient (CLI) | payer MEDICARE, OTHER, SELFPAY ==
--- NOTE | 2023-04-06 14:30 | XR_ITS ---
WS: [id number] SCREENING DEXA SCAN [employer] CLINICAL INFORMATION: post menopausal COMPARISON: 2020 FINDINGS: The L1-L4 bone mineral density measures 1.050 g/cm2. This corresponds to a T score score of -1.1 and Z score of -0.1. Left femoral neck bone mineral density measures 0.755 g/cm2. This corresponds to a T score of -2.0 an d Z score of -0.9. Right femoral neck bone mineral density measures 0.792 g/cm2. This corresponds to a T score -1.7of an d Z score of -0.6. Mean femoral neck bone mineral density measures 0.773 g/cm2. This corresponds to a T score of -1.9 an d Z score of -0.8. IMPRESSION: Osteopenia lumbar spine lower end of the range. Osteopenia femoral necks. Patient's FRAX calculated 10 year probability for major osteoporotic fracture is 14.0% and osteoporot ic hip fracture is 3.6%. Bone mineral density lumbar spine increased 1.4% Bone mineral density femoral necks decreased -3.3%
== END 2023-04-06 14:22 | disposition home or self-care (01) ==
LOC: RAD 14:22
PROVIDERS: PCP Physician Assistant; Visit Provider Nurse Practitioner Family
DX: C50.211 Malignant neoplasm of upper-inner quadrant of right female breast (principal); Z78.0 Asymptomatic menopausal state; M85.89 Other specified disorders of bone density and structure, multiple sites
CPT/HCPCS: 77080

== ENCOUNTER 2023-04-29 14:27 | Outpatient (CLI) | payer MEDICARE, OTHER, SELFPAY ==
[2023-04-29 15:13] LABS: Free T4 Free Thyroxine 1.42 ng/dL (0.82-1.77); Thyroid Stimulating Hormone 1.39 uIU/mL (0.27-4.20)
== END 2023-04-29 14:28 | disposition home or self-care (01) ==
PROVIDERS: PCP Physician Assistant; Visit Provider Internal Medicine
DX: E03.9 Hypothyroidism, unspecified (principal); E04.1 Nontoxic single thyroid nodule
CPT/HCPCS: 36415; 84439; 84443

== ENCOUNTER → 2023-05-01 11:25 | Outpatient (BNVA) | payer MEDICARE, OTHER, SELFPAY | PROVIDERS: PCP Physician Assistant; Visit Provider Internal Medicine | DX: I48.91 Unspecified atrial fibrillation (principal); E04.1 Nontoxic single thyroid nodule; E03.9 Hypothyroidism, unspecified; E03.8 Other specified hypothyroidism | CPT/HCPCS: 99213; 99214 ==

== ENCOUNTER 2023-07-02 14:39 | Outpatient (CLI) | payer MEDICARE, OTHER, SELFPAY ==
[2023-07-02 16:17] LABS: Free T4 Free Thyroxine 1.37 ng/dL (0.82-1.77); Thyroid Stimulating Hormone 2.52 uIU/mL (0.27-4.20)
== END 2023-07-02 14:40 | disposition home or self-care (01) ==
LOC: LAB 14:42
PROVIDERS: PCP Physician Assistant; Visit Provider Internal Medicine
DX: I48.91 Unspecified atrial fibrillation (principal); E04.1 Nontoxic single thyroid nodule; E03.9 Hypothyroidism, unspecified
CPT/HCPCS: 36415; 84439; 84443

== ENCOUNTER → 2023-07-03 10:30 | Outpatient (BNVA) | payer MEDICARE, OTHER, SELFPAY | PROVIDERS: PCP Physician Assistant; Visit Provider Internal Medicine | DX: E03.9 Hypothyroidism, unspecified (principal); E04.1 Nontoxic single thyroid nodule; I48.91 Unspecified atrial fibrillation; E03.8 Other specified hypothyroidism; Z79.890 Hormone replacement therapy | CPT/HCPCS: 99213; 99214 ==

== ENCOUNTER 2023-08-06 14:00 | Outpatient (CLI) | payer MEDICARE, OTHER, SELFPAY ==
[2023-08-06 15:29] LABS: Free T4 Free Thyroxine 1.38 ng/dL (0.82-1.77); Thyroid Stimulating Hormone 2.26 uIU/mL (0.27-4.20)
== END 2023-08-06 14:01 | disposition home or self-care (01) ==
LOC: LAB 14:02
PROVIDERS: PCP Physician Assistant; Visit Provider Internal Medicine
DX: I48.91 Unspecified atrial fibrillation (principal)
CPT/HCPCS: 36415; 84439; 84443

== ENCOUNTER → 2023-08-12 11:21 | Outpatient (BNVA) | payer MEDICARE, OTHER, SELFPAY | PROVIDERS: PCP Physician Assistant; Visit Provider Internal Medicine | DX: I48.91 Unspecified atrial fibrillation (principal); E04.1 Nontoxic single thyroid nodule; E03.8 Other specified hypothyroidism | CPT/HCPCS: 99213; 99214 ==

== ENCOUNTER → 2023-09-24 12:59 | Outpatient (BNVA) | payer MEDICARE, OTHER, SELFPAY | PROVIDERS: PCP Physician Assistant; Visit Provider Internal Medicine | DX: I48.91 Unspecified atrial fibrillation (principal); I10 Essential (primary) hypertension | CPT/HCPCS: 99214 ==

== ENCOUNTER 2023-09-28 11:53 | Outpatient (CLI) | payer MEDICARE, OTHER, SELFPAY ==
[2023-09-28 12:42] LABS: Basophils # 0.1 10^3/uL (0.0-0.1); Basophils % 0.8 %; Eosinophils # 0.2 10^3/uL (0.0-0.8); Eosinophils % 1.9 %; Lymphocytes % 23.6 %; Mean Corpuscular HGB Conc 32.5 g/dL (30-55); Mean Corpuscular Hemoglobin 28.4 pg (27-33); Mean Corpuscular Volume 87.5 fl (85-98); Mean Platelet Volume 11.9 fL (7.4-10.4); Monocytes # 0.7 10^3/uL (0.2-0.9); Monocytes % 8.5 %; Neutrophils # 5.37 10^3/uL (1.8-7.7); Neutrophils % 64.8 %; Nucleated Red Blood Cells % 0 %; Platelet Count 275 10^3/cmm (157-399); Red Blood Count 4.57 10^6/uL (3.85-5.65); White Blood Count 8.28 10^3/uL (3.29-11.43)
[2023-09-28 13:00] LABS: Alanine Aminotransferase 13 U/L (0-33); Alkaline Phosphatase 112 U/L (35-105); Anion Gap 17.5 (5-19); Aspartate Amino Transferase 19 U/L (0-32); Blood Urea Nitrogen 15 mg/dL (8-23); Calcium 8.8 mg/dL (8.5-10.5); Carbon Dioxide 26 mmol/L (22-29); Chloride 99 mmol/L (98-107); Globulin 3.6 g/dL (1.3-4.6); Glucose 131 mg/dL (65-115); Osmolality Calculated 289 mOsm/kg (285-295); Potassium 4.5 mmol/L (3.5-5.1); Sodium 138 mmol/L (136-145); Total Bilirubin 0.5 mg/dL (0.15-1.2); Total Protein 7.6 g/dL (6.6-8.7)
== END 2023-09-28 11:54 | disposition home or self-care (01) ==
LOC: LAB 11:55
PROVIDERS: PCP Physician Assistant; Visit Provider Nurse Practitioner Family
DX: C50.211 Malignant neoplasm of upper-inner quadrant of right female breast (principal)
CPT/HCPCS: 36415; 80053; 85025

== ENCOUNTER 2023-09-28 13:15 | Oncology outpatient (recurring) (ONCR) | payer MEDICARE, OTHER, SELFPAY | END 2023-10-16 23:59 | disposition home or self-care (01) | PROVIDERS: PCP Physician Assistant; Visit Provider Nurse Practitioner Family | DX: Z08 Encounter for follow-up examination after completed treatment for malignant neoplasm (principal); Z85.3 Personal history of malignant neoplasm of breast | CPT/HCPCS: 99213 ==

== ENCOUNTER → 2023-10-27 10:57 | Outpatient (BNVA) | payer MEDICARE, OTHER, SELFPAY | PROVIDERS: PCP Physician Assistant; Visit Provider Anesthesiology Pain Medicine | DX: M47.816 Spondylosis without myelopathy or radiculopathy, lumbar region; M51.16 Intervertebral disc disorders with radiculopathy, lumbar region | CPT/HCPCS: 99214 ==

== ENCOUNTER 2023-11-12 13:55 | Outpatient (CLI) | payer MEDICARE, OTHER, SELFPAY ==
--- NOTE | 2023-11-12 14:03 | MM_ITS ---
WS: [id number] BILATERAL 3D TOMOSYNTHESIS DIGITAL DIAGNOSTIC MAMMOGRAPHY WITH CAD CLINICAL INFORMATION: BREAST MASS HISTORY: RIGHT breast cancer. LEFT breast mass. COMPARISON: 03/26/2023 TECHNIQUE: Bilateral CC, MLO, and ML views. FINDINGS: The breasts are composed of heterogeneous fibroglandular density, which can limit the detection of sm all underlying mass lesions. Vascular calcifications. Incidental punctate calcifications. Postoperati ve lumpectomy changes RIGHT breast with parenchymal fibrosis similar to previous. Palpable marker upper outer LEFT breast with dense underlying tissue. Ultrasound is pending. ULTRASOUND BREAST LEFT TECHNIQUE: Ultrasound left breast focused area of concern. CLINICAL INFORMATION: BREAST MASS FINDINGS: Ultrasound LEFT breast in the area of palpable concern. In the area of interest at the 12 o'clock pos ition 1 cm from the nipple there is a 6 x 6 x 4 mm incidental simple cyst. This is benign. Incidental ductal ectasia posterior to the nipple. MM/[place] [id number] IMPRESSION: BI-RADS: 2-Benign FOLLOW UP: 1 Year Follow-up Recommend return to annual diagnostic mammography.
== END 2023-11-12 13:56 | disposition home or self-care (01) ==
LOC: RAD 13:55
PROVIDERS: PCP Physician Assistant; Visit Provider Physician Assistant
DX: N63.20 Unspecified lump in the left breast, unspecified quadrant (principal); R92.333 Mammographic heterogeneous density, bilateral breasts; R92.1 Mammographic calcification found on diagnostic imaging of breast; Z98.890 Other specified postprocedural states; N60.12 Diffuse cystic mastopathy of left breast; N60.42 Mammary duct ectasia of left breast
CPT/HCPCS: 76642; 77062; G0279

== ENCOUNTER 2023-11-16 10:29 | Emergency (ER) | payer MEDICARE, OTHER, SELFPAY ==
[2023-11-16 10:31] VITALS: BP 168/106; PULSE 82; RESP 18; TEMP 36.4; O2SAT 97; BMI 33.8
--- NOTE | 2023-11-16 10:56 | ED_ITS ---
HPI - Allergic Reaction General: Chief complaint: Allergic Reaction Stated complaint: Swollen face, SOB Time Seen by Provider: 11/16/23 10:42 Source: patient Mode of arrival: ambulatory History of Present Illness: HPI narrative: 72 yo female presents to the ER with com plaints of facal swelling and hives from exposure to poison oak last week. She was started on a steriod taper and antihistamines. Pt stepped won on steriods yesterday and rash and swelling worsened. MD complaint: allergic reaction, hives and facial swelling Onset (ago): day(s) Associated symptoms: Reports facial swelling, itching and lip swelling; Deny abdominal pain, difficulty breathing, dysphagia, dizziness, hoarseness, nausea, rash, tongue swelling or vomiting Severity: mild Treatment prior to arrival: benadryl and steroids Review of Systems Const: Denies: fever(s) or chills ENMT: Denies: hoarseness Card: Denies: chest pain Resp: Denies: dyspnea GI: Denies: abdominal pain, nausea, vomiting or dysphagia : Denies: dysuria, urinary frequency or urinary urgency Musc: Denies: neck pain or back pain Skin/Breast: Reports: rash, pruritus and erythema Neuro: Denies: dizziness All/Imm: Reports: urticaria and facial swelling; Denies: throat swelling, tongue swelling or acute wheezing PFSH ED PFSH: Medical History Osteopenia Allergic rhinitis Thyroid nodule Lumbar disc disease with radiculopathy GERD (gastroesophageal reflux disease) Breast cancer Hypertension Atrial fibrillation Surgical History History of lumpectomy of right breast (03/29/20) Right breast lumpectomy with axillary sentinel lymph node biopsy History of cholecystectomy History of colonoscopy History of cataract extraction [address] Garcia H/O breast biopsy (02/2020) Biopsies of right breast and right axillary lymph node History of tubal ligation Family History Other CAD (coronary artery disease) Cancer History of breast lump removal History of cholecystectomy Hypertension Social History Smoking and tobacco/nicotine status: never used tobacco/nicotine Alcohol intake: current Alcohol intake frequency: holidays/special occasions only Substance/Drug Use: never Caregiver/support person: Yes Lives independently: Yes Physical Exam Const: GENERAL APPEARANCE: cooperative and comfortable ORIENTATION/CONSCIOUSNESS: Yes awake, Yes oriented to person, Yes oriented to place and Yes oriented to time HENMT: COMMON NORMALS: normocephalic, atraumatic and hearing grossly normal bilaterally HEAD & SCALP: normocephalic and atraumatic Resp: COMMON NORMALS: normal respiratory effort, No retractions, No use of accessory muscles and clear to auscultation bilaterally AUSCULTATION: clear to auscultation bilaterally Cardio: COMMON NORMALS: regular rate, regular rhythm and No murmurs present (Cardio) RATE: regular rate RHYTHM: regular rhythm GI: COMMON NORMALS: Soft to palpation and No hepatosplenomegaly present AUSCULTATION: Yes normoactive bowel sounds PALPATION: Yes Soft to palpation, No Tenderness to palpation present (GI), No Guarding due to palpation present (GI) and Yes No hepatosplenomegaly present Extremity: COMMON NORMALS: normal to inspection, capillary refill normal, no clubbing, cyanosis or edema, no calf tenderness and no pedal edema Neuro: SENSORIUM/ORIENTATION: Yes oriented to person, Yes oriented to place and Yes oriented to time Skin: COMMON NORMALS: no rashes or lesions noted GENERAL SKIN EXAM: no rashes or lesions noted Course Vital Signs: Vital signs: Vital Signs Temperature 97.5 F L 11/16/23 10:31 Pulse Rate 77 11/16/23 11:45 Respiratory Rate 18 11/16/23 10:31 Blood Pressure 167/109 11/16/23 11:45 Pulse Oximetry 98 11/16/23 11:45 Oxygen Delivery Me thod Room Air 11/16/23 11:45 MDM - Allergic Reaction Medical Decision Making improved with steriod IV and benadryl. Rewrite steriod taper and increase and extend. Discussed with patient she can continue the Benadryl or use cetirizine 20 mg twice daily. Recheck if has any change or symptoms. Repeat exam time discharged no wheezing facial swelling has decreased she is feeling much better Medical Records I reviewed the patient's medical records. Lab Data I reviewed the patient's lab results. 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 Condition: Stable Prescriptions: New prednisone 20 mg tablet 20 mg PO TID Qty: 24 0RF Rx Instructions: 3 times daily x 5 days, twice daily x 3 days, daily x 3 days cetirizine 10 mg tablet 20 mg PO BID Qty: 30 0RF No Action loratadine [Allergy Relief (loratadine)] 10 mg tablet 10 mg PO DAILY furosemide 40 mg tablet 40 mg PO DAILY metoprolol tartrate 100 mg tablet 150 mg PO BID@0900,1200 Qty: 270 3RF potassium chloride 20 mEq tablet extended release 20 meq PO DAILY Qty: 90 3RF digoxin 125 mcg (0.125 mg) tablet 125 mcg PO DAILY Qty: 90 3RF amlodipine 10 mg tablet 10 mg PO DAILY Qty: 90 3RF calcium carbonate 500 mg calcium (1,250 mg) Tablet 500 mg PO DAILY pantoprazole 40 mg Tablet,Delayed Release (Dr/Ec) 40 mg PO BID Qty: 60 0RF prednisone 20 mg tablet See Rx Instructions .ROUTE .COMPLEX Rx Instructions: TAKE 3 TABLETS DAILY FOR 3 DAYS, 2 TABLETS DAILY FOR 3 DAYS, THEN 1 TABLET DAILY FOR 3 DAYS. aspirin 325 mg tablet,delayed release (DR/EC) 325 mg PO DAILY losartan 100 mg tablet 100 mg PO DAILY Discharge Orders: Discharge ED (Routine); Ordered 11/16/23 Ordered By: James Montemayor Referrals: Sayda Starkey PA [Primary Care Provider] - Discharge Diet: Usual diet Discharge Activity: Increase activity as tolerated Patient Instructions: Opioid Safety, Pain Management Activity Restrictions/Additional Instructions: Thank you for choosing [facility] for your healthcare needs today. It is very important that you follow up as instructed or that you return to the [facility] should you have concerns or if your condition changes or worsens in any way. You are seen today for a persistent allergic reaction to poison oak. Recommend that you increase his steroid dosage. We wrote a new a steroid taper for your to begin today you were given a dose of steroids IV this morning take the first dose this evening. You can also use cetirizine 20 mg twice a day. If you use the cetirizine do not use Benadryl, you should use either Benadryl or cetirizine but not both Coding Level of Care Code ED [employer] for [employer]
[2023-11-16] MEDS: dexamethasone 10 mg/mL INJ IM (11:21)
[2023-11-16] MEDS: diphenhydrAMINE 50 mg/mL SDV 1mL IVP (11:23)
[2023-11-16 11:45] VITALS: BP 167/109; PULSE 77; O2SAT 98
== END 2023-11-16 12:27 | disposition home or self-care (01) ==
PROVIDERS: Emergency Provider Family Medicine; PCP Physician Assistant
DX: L23.7 Allergic contact dermatitis due to plants, except food (principal); Z79.82 Long term (current) use of aspirin; Z85.3 Personal history of malignant neoplasm of breast; I10 Essential (primary) hypertension
CPT/HCPCS: 96372; 96374; 99284; J1100; J1200

== ENCOUNTER 2023-11-23 10:58 | Outpatient (CLI) | payer MEDICARE, OTHER, SELFPAY ==
--- NOTE | 2023-11-23 11:02 | MR_ITS ---
WS: [id number] MRI LUMBAR SPINE NONCONTRAST TECHNIQUE: Sagittal T1, T2 and STIR imaging. Axial T1 and T2 imaging. CLINICAL INFORMATION: SPINAL STENOSIS OF LUMBAR REGION COMPARISON: MRI 2020 FINDINGS: 5 nonrib-bearing lumbar vertebral bodies. 13 thoracic type vertebral bodies if counting performed fro m the craniocervical junction. Mild lumbar curve. No acute compression. No high-grade central canal stenosis. L1-L2: Mild annular bulge with a tiny annular fissure. Spinal canal and foramen are patent. Mild face t arthropathy. Previous described LEFT foraminal protrusion has involuted or been resected. L2-L3: Mild annular bulging. Narrowing of the RIGHT subarticular recess. Mild facet arthropathy. Slig ht impingement on the traversing RIGHT L3 nerve root slightly progressed compared to previous. Forame n are patent. L3-L4: Mild annular bulging. Mild facet arthropathy. Mild LEFT foraminal narrowing is stable. Tiny LE FT annular fissure. L4-L5: Mild annular bulging. Narrowing of the LEFT subarticular recess with slight impingement on the traversing LEFT L5 nerve root. Foramen are patent. L5-S1: No significant disc bulging. Moderate facet arthropathy. Spinal canal and foramen are patent. Bilateral renal cystic lesions. Visualized pelvic bony structures: Normal. Paravertebral soft tissues: Normal. MR/MR lumbar spine wo con* [id number] IMPRESSION: 1. Mild lumbar curve. No acute compression. No high-grade central canal stenos is. 2. Previously described LEFT L1-2 foraminal protrusion has involuted or been r esected. 3. Annular bulge at L2-3 with slight impingement RIGHT subarticular recess and traversing RIGHT L3 nerve root. This is slightly progressed. 4. Disc bulging L4-5 with slight impingement on traversing LEFT L5 nerve root in the subarticular recess similar to previous. 5. Mild LEFT L3-4 foraminal narrowing appears stable. Tiny LEFT annular fissur e. 6. Mild to moderate facet arthropathy L3-L5.
== END 2023-11-23 10:59 | disposition home or self-care (01) ==
LOC: RAD 10:58
PROVIDERS: PCP Physician Assistant; Visit Provider Physician Assistant
DX: M48.061 Spinal stenosis, lumbar region without neurogenic claudication (principal); M51.36 Other intervertebral disc degeneration, lumbar region; M54.16 Radiculopathy, lumbar region; M47.896 Other spondylosis, lumbar region
CPT/HCPCS: 72148

== ENCOUNTER 2024-02-04 11:22 | Outpatient (CLI) | payer MEDICARE, OTHER, SELFPAY ==
[2024-02-04 12:10] LABS: Free T4 Free Thyroxine 1.23 ng/dL (0.82-1.77); Thyroid Stimulating Hormone 3.01 uIU/mL (0.27-4.20)
== END 2024-02-04 11:23 | disposition home or self-care (01) ==
LOC: LAB 11:23
PROVIDERS: PCP Physician Assistant; Visit Provider Internal Medicine
DX: I48.91 Unspecified atrial fibrillation (principal); E03.9 Hypothyroidism, unspecified; E04.1 Nontoxic single thyroid nodule
CPT/HCPCS: 36415; 84439; 84443

== ENCOUNTER → 2024-02-11 11:09 | Outpatient (BNVA) | payer MEDICARE, OTHER, SELFPAY | PROVIDERS: PCP Physician Assistant; Visit Provider Internal Medicine | DX: I48.91 Unspecified atrial fibrillation (principal); E04.1 Nontoxic single thyroid nodule; E03.9 Hypothyroidism, unspecified; E03.8 Other specified hypothyroidism | CPT/HCPCS: 99214 ==

== ENCOUNTER 2024-04-07 13:02 | Oncology outpatient (recurring) (ONCR) | payer MEDICARE, OTHER, SELFPAY ==
--- NOTE | 2024-03-21 14:00 | US_ITS ---
WS: [id number] ULTRASOUND THYROID TECHNIQUE: Ultrasound of the thyroid. CLINICAL INFORMATION: thyroid nodule COMPARISON: 11/10/2022 FINDINGS: Thyroid: Right and left thyroid lobes are normal in size and echotexture. No suspicious thyroid nodul es are present. Right thyroid lobe: 5.2 cm x 1.3 cm x 1.5 cm Left thyroid lobe: 3.6 cm x 1.5 cm x 1.1 cm. Stable previously described 3 mm echogenic focus in the mid to inferior LEFT thyroid. Isthmus: 0.3 mm. Cervical lymphadenopathy: None. US/US thyroid [id number] IMPRESSION: No significant changes since 11/10/2022. No suspicious nodules.
[2024-04-07 13:14] LABS: Basophils # 0.1 10^3/uL (0.0-0.1); Basophils % 1.1 %; Eosinophils # 0.2 10^3/uL (0.0-0.8); Eosinophils % 2.2 %; Hematocrit 44.2 % (36-47); Lymphocytes # 3.2 10^3/uL (0.8-4.8); Lymphocytes % 32.2 %; Mean Corpuscular HGB Conc 32.8 g/dL (30-55); Mean Corpuscular Hemoglobin 30.3 pg (27-33); Mean Corpuscular Volume 92.3 fl (85-98); Mean Platelet Volume 11.1 fL (7.4-10.4); Monocytes # 0.6 10^3/uL (0.2-0.9); Monocytes % 6.4 %; Neutrophils # 5.62 10^3/uL (1.8-7.7); Neutrophils % 57.6 %; Nucleated Red Blood Cells % 0 %; Platelet Count 289 10^3/cmm (157-399); Red Blood Count 4.79 10^6/uL (3.85-5.65); Red Cell Distribution Width 13.1 % (12.1-15.1); White Blood Count 9.78 10^3/uL (3.29-11.43)
[2024-04-07 13:33] LABS: Alanine Aminotransferase 20 U/L (0-33); Albumin Level 4.2 g/dL (3.5-5.2); Alkaline Phosphatase 132 U/L (35-105); Anion Gap 16.3 (5-19); Aspartate Amino Transferase 26 U/L (0-32); Blood Urea Nitrogen 10 mg/dL (8-23); Calcium 9.1 mg/dL (8.5-10.5); Carbon Dioxide 26 mmol/L (22-29); Chloride 100 mmol/L (98-107); Globulin 3.4 g/dL (1.3-4.6); Glucose 170 mg/dL (65-115); Osmolality Calculated 289 mOsm/kg (285-295); Potassium 4.3 mmol/L (3.5-5.1); Sodium 138 mmol/L (136-145); Total Bilirubin 0.6 mg/dL (0.15-1.2); Total Protein 7.6 g/dL (6.6-8.7)
== END 2024-04-16 23:59 | disposition home or self-care (01) ==
PROVIDERS: PCP Physician Assistant; Visit Provider Nurse Practitioner Family
DX: Z08 Encounter for follow-up examination after completed treatment for malignant neoplasm; Z85.3 Personal history of malignant neoplasm of breast; Z53.9 Procedure and treatment not carried out, unspecified reason
CPT/HCPCS: 36415; 76536; 80053; 85025; 99213

== ENCOUNTER 2024-05-05 15:30 | Oncology outpatient (recurring) (ONCR) | payer MEDICARE, OTHER, SELFPAY ==
--- NOTE | 2024-04-26 09:00 | US_ITS ---
WS: [id number] ULTRASOUND BREAST RIGHT TECHNIQUE: Ultrasound right breast focused area of concern. CLINICAL INFORMATION: new lymph node right ax COMPARISON: 05/09/2021 FINDINGS: In the area of concern, RIGHT axilla, there is a simple cyst or postoperative seroma unchanged in lisbeth earance since 2020. This measures approximately 2.2 x 2.1 x 1.9 cm. In addition, there is a prominent but normal-appearing lymph node measuring 2.5 x 1.6 x 1.0 cm with normal fatty hilum and no cortical thickening. No suspicious findings in the RIGHT axilla. US/US breast RT limited* [id number] IMPRESSION: BI-RADS 2 benign Recommend annual diagnostic mammography
[2024-05-05 15:56] LABS: Basophils # 0.1 10^3/uL (0.0-0.1); Basophils % 0.8 %; Eosinophils # 0.2 10^3/uL (0.0-0.8); Eosinophils % 1.9 %; Hematocrit 43.1 % (36-47); Lymphocytes # 2.8 10^3/uL (0.8-4.8); Lymphocytes % 30.9 %; Mean Corpuscular Hemoglobin 29.4 pg (27-33); Mean Corpuscular Volume 91.9 fl (85-98); Mean Platelet Volume 11.3 fL (7.4-10.4); Monocytes # 0.6 10^3/uL (0.2-0.9); Monocytes % 6.9 %; Neutrophils # 5.42 10^3/uL (1.8-7.7); Nucleated Red Blood Cells % 0 %; Platelet Count 296 10^3/cmm (157-399); Red Blood Count 4.69 10^6/uL (3.85-5.65); Red Cell Distribution Width 13.6 % (12.1-15.1); White Blood Count 9.17 10^3/uL (3.29-11.43)
[2024-05-05 17:06] LABS: Alanine Aminotransferase 19 U/L (0-33); Albumin Level 4.2 g/dL (3.5-5.2); Alkaline Phosphatase 114 U/L (35-105); Anion Gap 14.7 (5-19); Aspartate Amino Transferase 22 U/L (0-32); Blood Urea Nitrogen 12 mg/dL (8-23); Calcium 9.4 mg/dL (8.5-10.5); Carbon Dioxide 28 mmol/L (22-29); Chloride 99 mmol/L (98-107); Creatinine Clr Calc Pharmacy 63.7362; Globulin 3.5 g/dL (1.3-4.6); Glucose 133 mg/dL (65-115); Lactate Dehydrogenase 243 U/L (135-214); Osmolality Calculated 288 mOsm/kg (285-295); Potassium 3.7 mmol/L (3.5-5.1); Sodium 138 mmol/L (136-145); Total Bilirubin 0.6 mg/dL (0.15-1.2); Total Protein 7.7 g/dL (6.6-8.7)
== END 2024-05-17 23:59 | disposition home or self-care (01) ==
PROVIDERS: Internal Medicine; PCP Physician Assistant; Visit Provider Nurse Practitioner Family
DX: Z53.9 Procedure and treatment not carried out, unspecified reason; C50.211 Malignant neoplasm of upper-inner quadrant of right female breast; Z92.25 Personal history of immunosuppression therapy
CPT/HCPCS: 36415; 76642; 80053; 83615; 85025; 99213

== ENCOUNTER → 2024-05-25 14:00 | Outpatient (BNVA) | payer MEDICARE, OTHER, SELFPAY | PROVIDERS: PCP Physician Assistant; Visit Provider Anesthesiology Pain Medicine | DX: M47.816 Spondylosis without myelopathy or radiculopathy, lumbar region; M51.16 Intervertebral disc disorders with radiculopathy, lumbar region | CPT/HCPCS: 99214 ==

== ENCOUNTER 2024-06-08 12:05 | Outpatient (RCR) | payer MEDICARE, OTHER, SELFPAY | END 2024-06-17 23:59 | disposition home or self-care (01) | LOC: SPT 12:05 | PROVIDERS: PCP Physician Assistant; Visit Provider Anesthesiology Pain Medicine | DX: M47.816 Spondylosis without myelopathy or radiculopathy, lumbar region (principal) | CPT/HCPCS: 97110; 97161 ==

== ENCOUNTER 2024-06-18 06:00 | Outpatient (RCR) | payer MEDICARE, OTHER, SELFPAY | END 2024-07-15 23:59 | disposition home or self-care (01) | LOC: SPT 06:00 | PROVIDERS: PCP Physician Assistant; Visit Provider Anesthesiology Pain Medicine | DX: M47.816 Spondylosis without myelopathy or radiculopathy, lumbar region (principal) | CPT/HCPCS: 97110 ==

== ENCOUNTER → 2024-06-23 15:35 | Outpatient (BNVA) | payer MEDICARE, OTHER, SELFPAY | PROVIDERS: PCP Physician Assistant; Visit Provider Internal Medicine | DX: I48.91 Unspecified atrial fibrillation (principal); I10 Essential (primary) hypertension | CPT/HCPCS: 99214 ==

== ENCOUNTER 2024-07-16 06:00 | Outpatient (RCR) | payer MEDICARE, OTHER, SELFPAY | END 2024-08-05 08:52 | disposition home or self-care (01) | LOC: SPT 06:00 | PROVIDERS: PCP Physician Assistant; Visit Provider Anesthesiology Pain Medicine | DX: M47.816 Spondylosis without myelopathy or radiculopathy, lumbar region (principal) | CPT/HCPCS: 97110 ==

== ENCOUNTER → 2024-08-22 13:22 | Outpatient (BNVA) | payer MEDICARE, OTHER, SELFPAY | PROVIDERS: PCP Physician Assistant; Visit Provider Anesthesiology Pain Medicine | DX: M54.9 Dorsalgia, unspecified (principal); M47.816 Spondylosis without myelopathy or radiculopathy, lumbar region; M51.16 Intervertebral disc disorders with radiculopathy, lumbar region | CPT/HCPCS: 99213 ==

== ENCOUNTER 2024-10-27 11:42 | Oncology outpatient (recurring) (ONCR) | payer MEDICARE, OTHER, SELFPAY ==
--- NOTE | 2024-10-27 11:45 | US_ITS ---
WS: [id number] ULTRASOUND BREAST RIGHT TECHNIQUE: Ultrasound right breast focused area of concern. CLINICAL INFORMATION: compare to previous COMPARISON: 04/26/2024 FINDINGS: Ultrasound RIGHT axilla patient directed again demonstrates a suspected postoperative seroma or simple cyst measuring approximately 1.9 x 1.7 x 2.0 cm. This is unchanged in appearance compared to previous. This is also stable in appearance compared to 202. No other suspicious findings. Recommend return to annual diagnostic mammography. US/US breast RT limited* [id number] IMPRESSION: BI-RADS 2 benign Recommend return to annual diagnostic mammography.
== END 2024-11-14 23:59 | disposition home or self-care (01) ==
LOC: ONCMED 11:43 → RAD 11:43 → ONCMED 10-28 08:03
PROVIDERS: PCP Physician Assistant; Visit Provider Internal Medicine
DX: Z08 Encounter for follow-up examination after completed treatment for malignant neoplasm (principal); Z85.3 Personal history of malignant neoplasm of breast; Z53.9 Procedure and treatment not carried out, unspecified reason; R53.83 Other fatigue; Z92.3 Personal history of irradiation; E04.1 Nontoxic single thyroid nodule; E03.9 Hypothyroidism, unspecified; C50.211 Malignant neoplasm of upper-inner quadrant of right female breast; L02.411 Cutaneous abscess of right axilla
CPT/HCPCS: 76642

== ENCOUNTER 2024-12-05 10:11 | Outpatient (CLI) | payer MEDICARE, OTHER, SELFPAY ==
[2024-12-05 12:04] LABS: Free T4 Free Thyroxine 1.20 ng/dL (0.82-1.77); Thyroid Stimulating Hormone 3.30 uIU/mL (0.27-4.20)
== END 2024-12-05 10:12 | disposition home or self-care (01) ==
LOC: LAB 10:14
PROVIDERS: PCP Physician Assistant; Visit Provider Internal Medicine
DX: I48.91 Unspecified atrial fibrillation (principal)
CPT/HCPCS: 36415; 84439; 84443

== ENCOUNTER → 2024-12-13 11:11 | Outpatient (BNVA) | payer MEDICARE, OTHER, SELFPAY | PROVIDERS: PCP Physician Assistant; Visit Provider Internal Medicine | DX: E04.1 Nontoxic single thyroid nodule (principal); E03.8 Other specified hypothyroidism; E03.9 Hypothyroidism, unspecified | CPT/HCPCS: 99214 ==

== ENCOUNTER 2024-12-29 12:52 | Outpatient (CLI) | payer MEDICARE, OTHER, SELFPAY ==
--- NOTE | 2024-12-29 13:00 | MM_ITS ---
WS: [email or web address] BILATERAL 3D TOMOSYNTHESIS DIGITAL DIAGNOSTIC MAMMOGRAPHY WITH CAD CLINICAL INFORMATION: breast cancer HISTORY: History of RIGHT breast cancer COMPARISON: 2023 TECHNIQUE: Bilateral CC, MLO, and ML views. FINDINGS: The breasts are composed of heterogeneous fibroglandular density, which can limit the detection of small underlying mass lesions. Vascular calcifications. Incidental punctate calcifications. Increasing focal nodular density upper inner RIGHT breast in the area of prior lumpectomy. This appears new since 2023 and measures 1.5 cm. Recommend further evaluation with RIGHT breast diagnostic mammography with spot compression views and ultrasound. Unremarkable LEFT breast. Partially visualized seroma RIGHT axilla. MM/MM diag BI tomosynthesis [id number] IMPRESSION: DENSITY: The breasts are heterogeneously dense, which may obscure small masses. BI-RADS: 0 - Incomplete: Need additional imaging evaluation. FOLLOW UP: Need Additional Imaging Recommend RIGHT breast diagnostic mammography with spot compression views and u ltrasound.
== END 2024-12-29 12:53 | disposition home or self-care (01) ==
LOC: RAD 12:53
PROVIDERS: PCP Physician Assistant; Visit Provider Internal Medicine
DX: C50.211 Malignant neoplasm of upper-inner quadrant of right female breast (principal); R92.333 Mammographic heterogeneous density, bilateral breasts; R92.323 Mammographic fibroglandular density, bilateral breasts; N64.89 Other specified disorders of breast
CPT/HCPCS: 77062; G0279

== ENCOUNTER 2025-01-25 13:46 | Oncology outpatient (recurring) (ONCR) | payer MEDICARE, OTHER, SELFPAY ==
[2025-01-18 09:55] LABS: Hematocrit 41.7 % (36-47); Hemoglobin 13.80 g/dL (11.27-16.99); Mean Corpuscular HGB Conc 33.1 g/dL (30-55); Mean Corpuscular Hemoglobin 29.6 pg (27-33); Mean Corpuscular Volume 89.5 fl (85-98); Nucleated Red Blood Cells % 0 %; Platelet Count 337 10^3/cmm (157-399); Red Blood Count 4.66 10^6/uL (3.85-5.65); White Blood Count 10.78 10^3/uL (3.29-11.43)
[2025-01-18 10:29] LABS: Alanine Aminotransferase 20 U/L (0-33); Albumin Level 4.1 g/dL (3.5-5.2); Alkaline Phosphatase 152 U/L (35-105); Anion Gap 18.3 (5-19); Aspartate Amino Transferase 24 U/L (0-32); Blood Urea Nitrogen 21 mg/dL (8-23); Calcium 9.7 mg/dL (8.5-10.5); Carbon Dioxide 23 mmol/L (22-29); Chloride 101 mmol/L (98-107); Creatinine Clr Calc Pharmacy 60.3338; Globulin 3.9 g/dL (1.3-4.6); Glucose 121 mg/dL (65-115); Osmolality Calculated 290 mOsm/kg (285-295); Potassium 4.3 mmol/L (3.5-5.1); Sodium 138 mmol/L (136-145); Total Protein 8.0 g/dL (6.6-8.7)
--- NOTE | 2025-01-19 09:25 | MM_ITS ---
WS: [id number] RIGHT 3D TOMOSYNTHESIS DIGITAL MAMMOGRAPHY WITH CAD CLINICAL INFORMATION: ABNORMAL MAMMO HISTORY: History of RIGHT breast cancer. Additional views. COMPARISON: 12/29/2024 TECHNIQUE: 3 views of the right breast were obtained. FINDINGS: The right breast is composed of heterogeneous fibroglandular density tissue, which can limit the detection of small underlying mass lesions. Again seen is the focal nodular spiculated density upper inner RIGHT breast in the area of prior lumpectomy. This measures 1.5 cm. RIGHT breast ultrasound described below. ULTRASOUND BREAST RIGHT TECHNIQUE: Ultrasound right breast focused area of concern. CLINICAL INFORMATION: ABNORMAL MAMMO FINDINGS: Ultrasound RIGHT breast upper inner quadrant and RIGHT axilla. Irregular hypoechoic mass at the 9:00 position 2 cm from the nipple suspicious for recurrent neoplasm measuring 1.2 x 1.2 x 1.2 cm. Recommend further evaluation with ultrasound-guided biopsy. Previously described seroma in the RIGHT axilla measuring 2.0 x 1.8 x 1.5 cm stable in appearance since 10/27/2024 MM/MM diag RT tomosynthesis [id number] IMPRESSION: DENSITY: The breasts are heterogeneously dense, which may obscure small masses. BI-RADS: 5 - Highly suggestive of Malignancy FOLLOW UP: US Guided Biopsy Recommended Recommend further evaluation with ultrasound-guided biopsy of the RIGHT breast mass near the lumpectomy site.
== END 2025-02-14 23:59 | disposition home or self-care (01) ==
PROVIDERS: Internal Medicine; PCP Physician Assistant; Visit Provider Nurse Practitioner
DX: Z08 Encounter for follow-up examination after completed treatment for malignant neoplasm (principal); Z85.3 Personal history of malignant neoplasm of breast; N63.15 Unspecified lump in the right breast, overlapping quadrants; Z92.23 Personal history of estrogen therapy
CPT/HCPCS: 36415; 76642; 77061; 80053; 83615; 85025; 99213; 99214; G0279

== ENCOUNTER 2025-02-22 11:28 | Outpatient (CLI) | payer MEDICARE, OTHER, SELFPAY ==
--- NOTE | 2025-02-22 11:34 | US_ITS ---
WS: [id number] ULTRASOUND-GUIDED RIGHT BREAST BIOPSY HISTORY: ABNORMAL MAMMO COMPARISON: 01/19/2025, 10/27/2024 and 12/29/2024 Procedure, risks and complications are explained to the patient. Medications are reviewed. Consent is obtained. The mass in the RIGHT breast is localized with ultrasound. Mass localizes to 1:00, 2 cm from the nipple. Skin is cleansed with ChloraPrep and anesthetized with 1% buffered lidocaine. Small dermatome is made. Under sterile conditions mass is biopsied with a 14-gauge Achieve needle. Multiple core biopsies are performed. Material placed in formalin and sent to pathology for review. No complications encountered. Breast tissue marker (Bard ultrasound enhanced ribbon): Single. Patient left the radiology suite with no complications. Patient is instructed to return to [facility] or call with any concerns. US/[place] [id number] IMPRESSION: 1. Uncomplicated core needle biopsy RIGHT breast mass at 1:00. PATHOLOGY: Invasive mammary carcinoma of no special type. Nuclear grade 2-3. Pl ease see the entire pathology report for further details. Breast prognostic pro file is pending. RECOMMENDATION: Follow-up with oncology.
[2025-02-28 14:19] LABS: Breast Profile ER,PR,HER2,Ki-6 See Report
== END 2025-02-22 11:29 | disposition home or self-care (01) ==
LOC: RAD 11:30
PROVIDERS: PCP Physician Assistant; Visit Provider Internal Medicine
DX: C50.211 Malignant neoplasm of upper-inner quadrant of right female breast (principal)
CPT/HCPCS: 19083; 88305; 88361; 88374

== ENCOUNTER 2025-03-09 09:45 | Oncology outpatient (recurring) (ONCR) | payer MEDICARE, OTHER, SELFPAY ==
[2025-03-02] MEDS: iohexol 350 mg/mL 500 mL Btl (per mL) PO (12:42)
--- NOTE | 2025-03-02 13:30 | CTR_ITS ---
PROCEDURE INFORMATION: Exam: CT Chest With Contrast; Diagnostic Exam date and time: 03/02/2025 1:45 PM Age: 74 years old Clinical indication: Condition or disease; Other: Breasst; Prior surgery; Surgery date: 6+ months; Surgery type: Gb, RT lumpectomy, tubal; Follow up breast cancer, new right breast mass; Additional info: Malignant neoplasm of upper inner TECHNIQUE: Imaging protocol: Diagnostic computed tomography of the chest with contrast. Radiation optimization: All CT scans at this facility use at least one of these dose optimization techniques: automated exposure control; mA and/or kV adjustment per patient size (includes targeted exams where dose is matched to clinical indication); or iterative reconstruction. Contrast material: OMNI 350; Contrast volume: 100 ml; Contrast route: INTRAVENOUS (IV); COMPARISON: CR XR chest 1V portable [id number] 07/02/2022 7:40 AM RADIATION DOSE METRICS: Total DLP (mGy-cm): 799.29 FINDINGS: Lungs: Mild atelectasis without consolidation. 5 mm pulmonary nodule in the right middle lobe, series 5, image 37. 5 mm pulmonary nodule in the left upper lobe, series 5, image 16. Few additional smaller scattered nodules. Pleural spaces: No pneumothorax or pleural effusion. Heart: Moderate cardiomegaly with left atrial appendage device in place. Coronary arteries: Minimal coronary artery atherosclerotic calcification. Lymph nodes: No pathologically enlarged mediastinal lymph nodes demonstrated. Vasculature: No central pulmonary emboli seen. No aneurysm or dissection in the visualized aorta. The visualized aorta and vasculature demonstrates mild atherosclerotic calcification. Diaphragm: 1.5 cm fluid attenuating lesion adjacent to the kay of the diaphragm, likely reflecting benign/indolent process such as cyst or lymphangioma. Bones/joints: No acute or aggressive osseous abnormality. Small sclerotic density in the T1 vertebral body, which could reflect a small bone island with single small osteoblastic metastatic lesion considered less likely. The thoracic spine demonstrates mild degenerative changes at multiple levels. Soft tissues: Small clip versus calcification in rounded nodular area in the right breast soft tissues. 1.7 cm rounded fluid attenuating area in the right axilla, which could reflect seroma or evolving hematoma from recent procedure. Lymphadenopathy would be considered less likely given density. PROCEDURE INFORMATION: Exam: CT Abdomen And Pelvis With Contrast Exam date and time: 03/02/2025 1:45 PM Age: 74 years old Clinical indication: Condition or disease; Other: Breasst; Prior surgery; Surgery date: 6+ months; Surgery type: Gb, RT lumpectomy, tubal; Follow up breast cancer, new right breast mass; Additional info: Malignant neoplasm of upper inner TECHNIQUE: Imaging protocol: Computed tomography of the abdomen and pelvis with contrast. Radiation optimization: All CT scans at this facility use at least one of these dose optimization techniques: automated exposure control; mA and/or kV adjustment per patient size (includes targeted exams where dose is matched to clinical indication); or iterative reconstruction. Contrast material: OMNI 350; Contrast volume: 100 ml; Contrast route: INTRAVENOUS (IV); COMPARISON: CT abdomen pelvis wo con [id number] 07/02/2022 8:17 AM RADIATION DOSE METRICS: Total DLP (mGy-cm): 799.29 FINDINGS: Liver: Subcentimeter hepatic hypodensity which may reflect a small cyst. Gallbladder and biliary ducts: Prior cholecystectomy. No biliary ductal dilatation or mineralized stone seen. Pancreas: Mild fatty infiltration of the pancreas. Spleen: Unremarkable. Incidental splenule formation. Adrenal glands: The adrenal glands are unremarkable. Kidneys and ureters: 1.5 cm simple appearing left renal cyst, which requires no further followup. There are multiple additional tiny renal hypodensities that are too small to classify on the current examination, statistically most likely related to small cysts. 1.5 cm intermediate density lesion in the posterior aspect of the left kidney, which is indeterminate. No nephrolithiasis, hydronephrosis, or perinephric stranding. Areas of renal cortical scarring. Stomach and bowel: There is no evidence of intestinal perforation or obstruction. Redundant cecum. Appendix: The appendix appears unremarkable. Intraperitoneal space: No free air. No significant fluid collection. Vasculature: No aneurysm or dissection in the visualized aorta. The visualized aorta and vasculature demonstrates mild atherosclerotic calcification. Lymph nodes: No pathologically enlarged lymph nodes demonstrated. Urinary bladder: The bladder appears unremarkable. Reproductive: Uterus is unremarkable. No suspicious adnexal lesion seen. Bones/joints: No acute or aggressive osseous abnormality. Soft tissues: Small fat containing umbilical hernia. CT/CT chest abdpel w/*[id number] IMPRESSION: 1. Small clip versus calcification in rounded nodular area in the right breast soft tissues. Additional 1.7 cm rounded fluid attenuating area in the right axilla, which could reflect seroma or evolving hematoma from recent procedure. Lymphadenopathy would be considered less likely given density. Correlate with history and recent procedures. 2. Small nonspecific scattered pulmonary nodules measuring up to 5 mm. These can be followed on subsequent exams. 3. No acute or aggressive osseous abnormality. Small sclerotic density in the T1 vertebral body which could reflect a small bone island, with single small osteoblastic metastatic lesion considered less likely. 4. Moderate cardiomegaly with left atrial appendage device in place. IMPRESSION: 1. No acute abnormality or specific CT findings to suggest metastatic disease in the abdomen/pelvis. 2. 1.5 cm intermediate density lesion in the posterior aspect of the left kidney, which is indeterminate. Recommend follow up nonemergent renal ultrasound to see if this can be classified as a cyst. Additional probable small bilateral renal cysts. COMMENTS: Consistent with the [employer]'s Incidental Findings Committee white paper (J Am Don Radiol 2018): Any incidental renal lesion less than 1 cm or classified as too small to characterize, or any incidental cystic renal lesion characterized as simple-appearing, is likely benign. No follow-up imaging is recommended for these lesions per consensus recommendations based on imaging criteria.
[2025-03-02] MEDS: iohexol 350 mg/mL 500 mL Btl (per mL) IV (13:55)
--- NOTE | 2025-03-08 08:45 | NM_ITS ---
WS: [email or web address] NUCLEAR MEDICINE BONE SCAN Radiopharmaceutical: 25.6 Tc-99m MDP mCi IV Injection site: Antecubital Postinjection imaging delay: 1 hr CLINICAL INFORMATION: malignant neoplasm of upper inner right breast COMPARISON: CT 10 16 25 FINDINGS: Bone lesions: There are no osseous lesions suspicious for metastatic disease. Soft tissue contours: Normal. Kidneys: Normal. Other findings: None. NM/NM bone scan whole body* [id number] IMPRESSION: No evidence of osseous metastatic disease.
[2025-03-09 10:12] LABS: Hematocrit 42.3 % (36-47); Hemoglobin 13.70 g/dL (11.27-16.99); Mean Corpuscular HGB Conc 32.4 g/dL (30-55); Mean Corpuscular Hemoglobin 28.7 pg (27-33); Mean Corpuscular Volume 88.5 fl (85-98); Nucleated Red Blood Cells % 0 %; Platelet Count 276 10^3/cmm (157-399); Red Blood Count 4.78 10^6/uL (3.85-5.65); White Blood Count 10.60 10^3/uL (3.29-11.43)
[2025-03-09 10:28] LABS: Alanine Aminotransferase 20 U/L (0-33); Albumin Level 4.0 g/dL (3.5-5.2); Alkaline Phosphatase 124 U/L (35-105); Blood Urea Nitrogen 23 mg/dL (8-23); Calcium 9.1 mg/dL (8.5-10.5); Carbon Dioxide 21 mmol/L (22-29); Chloride 99 mmol/L (98-107); Creatinine Clr Calc Pharmacy 64.5335; Globulin 3.5 g/dL (1.3-4.6); Glucose 124 mg/dL (65-115); Osmolality Calculated 281 mOsm/kg (285-295); Sodium 133 mmol/L (136-145); Total Protein 7.5 g/dL (6.6-8.7)
[2025-03-09 10:35] LABS: Anion Gap 17.5 (5-19); Aspartate Amino Transferase 20 U/L (0-32); Potassium 4.5 mmol/L (3.5-5.1)
== END 2025-03-17 23:59 | disposition home or self-care (01) ==
PROVIDERS: Internal Medicine; PCP Physician Assistant; Visit Provider Nurse Practitioner
DX: C50.211 Malignant neoplasm of upper-inner quadrant of right female breast (principal); Z17.0 Estrogen receptor positive status [ER+]; R91.8 Other nonspecific abnormal finding of lung field; N28.1 Cyst of kidney, acquired; N28.89 Other specified disorders of kidney and ureter; I48.91 Unspecified atrial fibrillation; Z79.899 Other long term (current) drug therapy; Z53.9 Procedure and treatment not carried out, unspecified reason
CPT/HCPCS: 36415; 71260; 74177; 78306; 80053; 83615; 85025; 99213; A9561

== ENCOUNTER → 2025-03-16 10:40 | Outpatient (BNVA) | payer MEDICARE, OTHER, SELFPAY | PROVIDERS: PCP Physician Assistant; Visit Provider Student in an Organized Health Care Education/Training Program | DX: N64.59 Other signs and symptoms in breast (principal) | CPT/HCPCS: 99204 ==

== ENCOUNTER 2025-03-29 07:41 | Day surgery (SDC) | payer MEDICARE, OTHER, SELFPAY ==
[2025-03-29] VITALS (11 sets, daily range): BP systolic 96–160; BP diastolic 59–96; PULSE 61–79; RESP 16–17; TEMP 36.3–36.5; O2SAT 91–98; BMI 29.9
--- NOTE | 2025-03-29 08:46 | W.PM.OPSUD ---
Surgery/Procedure H&P Update DATE OF PROCEDURE: March 29, 2025 DATE H&P PERFORMED: 03/16/25 H&P UPDATE INFORMATION: I have reviewed H&P completed within last 30 days, I have examined patient prior to procedure, No changes to prior documentation and Risks and benefits of the procedure reviewed PLANNED PROCEDURE: Operation Date: 03/29/25 09:25 Proposed Procedures p Mastectomy Simple [id number] C50.211(Right) - David Herman MD
--- NOTE | 2025-03-29 08:47 | ANES.PREANE2 ---
Pre-Anesthetic Assessment Height/Weight: Height 1.65 m Weight 81.647 kg Temp Pulse Resp BP Pulse Ox O2 Del Method 97.3 F L 68 16 160/96 96 Room Air 03/29/25 08:10 03/29/25 08:10 03/29/25 08:10 03/29/25 08:10 03/29/25 08:10 03/29/25 08:10 Operation Date: 03/29/25 09:25 Proposed Procedures p Mastectomy Simple 53821 C50.211(Right) - David Herman MD Familial anesthetic complications: None Was Beta Ari taken within 24 hours: Yes Was Clonidine taken within 24 hours: N/A Last intake: Intake Last Liquid Date 03/28/25 Last Liquid Time 21:00 Last Solid Date 03/28/25 Last Solid Time 21:00 Social No alcohol and No tobacco Exam alert, oriented x 3, clear to auscultation bilaterally and regular rate & rhythm Airway Mallampati: Class II Dentition: full CV/HEM Atrial Fibrillation (watchman) and Hypertension GI Gastroesophageal Reflux Disease Metabolic Thyroid Disease Anesthetic Plan ASA status: 3 Anesthesia: General Risk of > 500 ml blood loss (7ml/kg in children): No Medications/Allergies Home Medications ?Medication ?Instructions ?Recorded ?Confirmed ?Last Taken ?Type loratadine 10 mg tablet (Allergy 10 mg PO DAILY 01/07/22 03/28/25 03/28/25 History Relief (loratadine)) calcium carbonate 500 mg PO DAILY 07/02/22 03/28/25 03/28/25 History pantoprazole 40 mg tablet,delayed 40 mg PO BID #60 tabs 07/04/22 03/28/25 03/28/25 Rx release losartan 100 mg tablet 100 mg PO DAILY 11/16/23 03/28/25 03/28/25 History amlodipine 10 mg tablet 10 mg PO DAILY #90 tabs 08/18/24 03/28/25 03/29/25 06:30 Rx aspirin 81 mg tablet 81 mg PO DAILY 12/13/24 03/28/25 03/28/25 History clopidogrel 75 mg tablet 75 mg PO DAILY 02/23/25 03/28/25 03/24/25 History letrozole 2.5 mg tablet 2.5 mg PO DAILY #30 tabs 03/23/25 03/28/25 Unknown Rx digoxin 125 mcg (0.125 mg) tablet 125 mcg PO DAILY 03/28/25 03/28/25 03/28/25 History (Lanoxin) furosemide 40 mg tablet 40 mg PO DAILY 03/28/25 03/28/25 03/28/25 History metoprolol tartrate 100 mg tablet 150 mg PO BID 03/28/25 03/28/25 03/29/25 06:30 History potassium chloride 20 mEq 20 meq PO DAILY 03/28/25 03/28/25 03/28/25 History tablet,extended release Allergies Allergy/AdvReac Type Severity Reaction Status Date / Time adhesive tape Allergy ALGY-Redness Verified 03/28/25 11:45 of Skin Current Medications Generic Name Dose Route Start Last Admin Trade Name Freq PRN Reason Stop Dose Admin Sodium Chloride 1,000 mls @ 30 mls/hr 03/29/25 07:45 03/29/25 08:17 Sodium Chloride 0.9% IV 03/30/25 07:44 30 mls/hr .Q24H MICHEAL Administration PFSH Anesthesia Medical History Osteopenia Allergic rhinitis Thyroid nodule Lumbar disc disease with radiculopathy GERD (gastroesophageal reflux disease) Breast cancer Hypertension Atrial fibrillation Surgical History History of lumpectomy of right breast (03/29/20) Right breast lumpectomy with axillary sentinel lymph node biopsy History of cholecystectomy History of colonoscopy History of cataract extraction [address] Garcia H/O breast biopsy (02/2020) Biopsies of right breast and right axillary lymph node History of tubal ligation Family History Other CAD (coronary artery disease) Cancer History of breast lump removal History of cholecystectomy Hypertension Social History Smoking and tobacco/nicotine status: never used tobacco/nicotine Alcohol intake: current Alcohol intake frequency: holidays/special occasions only Substance/Drug Use: never Caregiver/support person: Yes Lives independently: Yes Data Anesthesia Cardiac Studies: Echocardiogram 08/06/22 Echocardiogram Ultrasound 01/02/20 Sestamibi Stress Test (Cardiology) 02/10/20 Cardiac Event Monitor 02/29/20
[2025-03-29] MEDS: ceFAZolin 2,000 mg SDV 2000 MG IVP (08:50)
[2025-03-29] MEDS: BUPivacaine 0.5% INJ 30 mL 10 ML XX (09:23)
[2025-03-29] MEDS: lidocaine-epi 1% 20 mL INJ 10 ML INJECTION (09:24)
--- NOTE | 2025-03-29 09:40 | P.OP_ITS ---
Operative Report Date of procedure: March 29, 2025 Pre-op diagnosis: Right breast cancer Post-op diagnosis: same Post-op findings: Unremarkable right simple mastectomy. No palpable lesions after specimen was passed off to pathology. Closed over a 10 Macanese Ankush drain. Procedure done: Right simple mastectomy Implants: N/A Specimens removed/disposition: Right simple mastectomy Pathology: Right mastectomy Surgeon: David Herman MD Sanding Machine Tender Automatic: N/A Anesthesia: MAC Estimated blood loss (mL): 40 Complications: N/A Findings: Unremarkable right simple mastectomy. No palpable lesions after specimen was passed off to pathology. Closed over a 10 Macanese Ankush drain. Condition: stable Disposition: same day Brief History: 74-year-old female who presented with breast cancer on the right breast. Discussed risk and benefits and patient agreed to proceed with right simple mastectomy. Procedure: The patient was wheeled into the operative room and placed on the OR table in the supine position. The right breast was inspected prepped and draped in the usual sterile fashion. A timeout was performed. All present were in agreement. An elliptical incision was made from medial to the latissimus dorsi to lateral to the sternum, encompassing the nipple. Dissection was carried out using electrocautery down to the clavipectoral fascia and down to the pectoralis major. The entirety of the breast tissue was excised. The breast was removed and a the lateral margin was marked with a 2-0 nylon stitch cut long, and the superior margin was marked with a 2-0 nylon stitch cut short. The specimen was passed off. The surgical field was irrigated with sterile water and adequate hemostasis was achieved using electrocautery. The breast was packed. A 10 Macanese Ankush drain was then placed in the resection bed. Dermis was then approximated with interrupted 2-0 Vicryl and 3-0 Vicryl. Skin was then closed with 3-0 monocryl braided suture in a subcuticular running fashion. Surgical glue and a Prevena dressing was applied. The chest was dressed using fluffs and a sports bra. Patient tolerated the procedure well and was wheeled in the postoperative anesthesia care unit in good condition.
[2025-03-29] MEDS: fentaNYL 50 mcg/mL INJ 2mL IVP (10:00)
--- NOTE | 2025-03-29 11:15 | ANE.PACU2 ---
Inpatient post-anesthesia follow up: Airway intact: Yes Vital signs: Temperature 97.3 F Pulse Rate 63 Respiratory Rate 16 Blood Pressure 109/61 Pulse Oximetry 97 Oxygen Delivery Me thod Room Air Oxygen Flow Rate 8 Fraction of Inspir ed Oxygen Hydration adequate: Yes Nausea and vomiting: No Pain level: 1 Mental status: Baseline
== END 2025-03-29 11:15 | disposition home or self-care (01) ==
PROVIDERS: PCP Physician Assistant; Visit Provider Student in an Organized Health Care Education/Training Program
PROC: (CPT 19303; principal; 2025-03-29 09:25)
DX: C50.911 Malignant neoplasm of unspecified site of right female breast (principal); I48.91 Unspecified atrial fibrillation; I10 Essential (primary) hypertension; K21.9 Gastro-esophageal reflux disease without esophagitis; E07.9 Disorder of thyroid, unspecified; Z79.82 Long term (current) use of aspirin; Z79.02 Long term (current) use of antithrombotics/antiplatelets; Z80.9 Family history of malignant neoplasm, unspecified; Z86.73 Personal history of transient ischemic attack (TIA), and cerebral infarction without residual deficits
CPT/HCPCS: 19303; 88307; J0690; J1100; J1885; J2405; J2704; J3010; J3490; J7030; J9999

== ENCOUNTER → 2025-04-06 10:34 | Outpatient (BNVA) | payer MEDICARE, OTHER, SELFPAY | PROVIDERS: PCP Physician Assistant; Visit Provider Student in an Organized Health Care Education/Training Program | DX: C50.211 Malignant neoplasm of upper-inner quadrant of right female breast (principal); Z98.890 Other specified postprocedural states | CPT/HCPCS: 99024 ==

== ENCOUNTER 2025-04-10 11:28 | Oncology outpatient (recurring) (ONCR) | payer MEDICARE, OTHER, SELFPAY ==
[2025-03-23 12:17] LABS: Hematocrit 43.2 % (36-47); Hemoglobin 14.20 g/dL (11.27-16.99); Mean Corpuscular HGB Conc 32.9 g/dL (30-55); Mean Corpuscular Hemoglobin 29.2 pg (27-33); Mean Corpuscular Volume 88.9 fl (85-98); Nucleated Red Blood Cells % 0 %; Platelet Count 285 10^3/cmm (157-399); Red Blood Count 4.86 10^6/uL (3.85-5.65); White Blood Count 9.87 10^3/uL (3.29-11.43)
[2025-03-23 12:41] LABS: Alanine Aminotransferase 25 U/L (0-33); Albumin Level 4.4 g/dL (3.5-5.2); Alkaline Phosphatase 139 U/L (35-105); Anion Gap 17.2 (5-19); Aspartate Amino Transferase 22 U/L (0-32); Blood Urea Nitrogen 21 mg/dL (8-23); CA 15-3 29.9 U/mL (0-25); Calcium 9.7 mg/dL (8.5-10.5); Carbon Dioxide 25 mmol/L (22-29); Chloride 99 mmol/L (98-107); Creatinine Clr Calc Pharmacy 64.6529; Globulin 3.8 g/dL (1.3-4.6); Glucose 110 mg/dL (65-115); Osmolality Calculated 288 mOsm/kg (285-295); Potassium 4.2 mmol/L (3.5-5.1); Sodium 137 mmol/L (136-145); Total Protein 8.2 g/dL (6.6-8.7)
--- NOTE | 2025-04-10 11:15 | USR_ITS ---
PROCEDURE INFORMATION: Exam: US Retroperitoneal, Complete, Kidneys, Aorta, IVC. Exam date and time: 04/10/2025 11:41 AM Age: 74 years old Clinical indication: Condition or disease; Other: Malignant neoplasm TECHNIQUE: Imaging protocol: Real-time ultrasound of the retroperitoneum with image documentation. Complete exam focused on the bilateral kidneys, aorta, and inferior vena cava. COMPARISON: 1. US abdomen limited [id number] 08/31/2024 10:[address] chest abdpel w/*[id number] 03/02/2025 1:45 PM FINDINGS: Right kidney: Right kidney measures 9.1 cm in greatest length. Mild cortical thinning along the upper pole. No hydronephrosis. No shadowing stones. No perinephric fluid collection. 1.5 x 1.4 x 1.2 cm simple appearing cyst within the right mid kidney. No solid suspicious renal mass. Vascular flow is documented at the right renal hilum. Left kidney: Left kidney measures 9 cm in greatest length. No hydronephrosis. No solid suspicious renal mass. There are a few small less than 1 cm simple appearing left renal cysts. No perinephric fluid collection. Vascular flow is documented at the left renal hilum. Aorta: Limited evaluation of the abdominal aorta demonstrates scattered atherosclerotic plaque. No infrarenal abdominal aortic aneurysm identified on this exam. Common iliac arteries: Not assessed on this exam. Inferior vena cava: Not assessed on this exam. Urinary bladder: Bladder appears unremarkable. No bladder wall mass or bladder calculus. US/US renal BI* [id number] IMPRESSION: Kidneys are relatively symmetric in size. Several small renal cysts were identified bilaterally. Indeterminate lesion along the posterior aspect of the lower pole of the left kidney, seen on recent CT scan of the abdomen and pelvis performed March 02, 2025, was not adequately assessed on this exam and may not have been able to be adequately visualized. This remains indeterminate. No solid suspicious renal mass was otherwise identified sonographically. Follow-up multiphase CT scan of the kidneys or MRI of the kidneys should be considered for further evaluation.
--- NOTE | 2025-04-10 11:45 | USR_ITS ---
PROCEDURE INFORMATION: Exam: US Soft Tissue Head and Neck, Thyroid Exam date and time: 04/10/2025 11:41 AM Age: 74 years old Clinical indication: Condition or disease; Thyroid disorder; Other: Thyroid nodule; Additional info: Thyroid nodule, please include tirads TECHNIQUE: Imaging protocol: Real-time ultrasound scan of the neck with image documentation. Exam focused on the thyroid. COMPARISON: US thyroid [id number] 03/21/2024 2:22 PM FINDINGS: Right thyroid lobe: No nodules. Mildly coarsened echotexture. The right thyroid lobe measures 1.3 x 1.7 x 2.7 cm (3 mL). Left thyroid lobe: No nodules. Mildly coarsened echotexture. The left thyroid lobe measures 1.2 x 1.3 x 3.4 cm (2.7 mL). Isthmus: No nodules. Lymph nodes: Subcentimeter left cervical lymph node may be reactive. US/US thyroid [id number] IMPRESSION: 1. Mildly coarsened thyroid echotexture could represent thyroiditis. 2. No thyroid nodules detected.
== END 2025-04-16 23:59 | disposition home or self-care (01) ==
LOC: ONCMED 11:28 → RAD 04-11
PROVIDERS: Internal Medicine; PCP Physician Assistant; Visit Provider Nurse Practitioner
DX: C50.211 Malignant neoplasm of upper-inner quadrant of right female breast; E04.1 Nontoxic single thyroid nodule; E07.89 Other specified disorders of thyroid; R59.0 Localized enlarged lymph nodes; N28.1 Cyst of kidney, acquired; N28.89 Other specified disorders of kidney and ureter; I70.0 Atherosclerosis of aorta; Z53.9 Procedure and treatment not carried out, unspecified reason
CPT/HCPCS: 36415; 76536; 76770; 80053; 83615; 85025; 86300; 99213

== ENCOUNTER 2025-04-20 10:11 | Oncology outpatient (recurring) (ONCR) | payer MEDICARE, OTHER, SELFPAY ==
[2025-04-20 10:52] LABS: Hematocrit 41.0 % (36-47); Hemoglobin 13.30 g/dL (11.27-16.99); Mean Corpuscular HGB Conc 32.4 g/dL (30-55); Mean Corpuscular Hemoglobin 28.7 pg (27-33); Mean Corpuscular Volume 88.6 fl (85-98); Nucleated Red Blood Cells % 0 %; Platelet Count 293 10^3/cmm (157-399); Red Blood Count 4.63 10^6/uL (3.85-5.65); White Blood Count 8.17 10^3/uL (3.29-11.43)
[2025-04-20 11:00] LABS: Alanine Aminotransferase 38 U/L (0-33); Albumin Level 4.2 g/dL (3.5-5.2); Alkaline Phosphatase 129 U/L (35-105); Anion Gap 13.4 (5-19); Aspartate Amino Transferase 28 U/L (0-32); Blood Urea Nitrogen 22 mg/dL (8-23); Calcium 9.3 mg/dL (8.5-10.5); Carbon Dioxide 27 mmol/L (22-29); Chloride 102 mmol/L (98-107); Creatinine Clr Calc Pharmacy 64.6529; Globulin 3.2 g/dL (1.3-4.6); Glucose 114 mg/dL (65-115); Osmolality Calculated 290 mOsm/kg (285-295); Potassium 4.4 mmol/L (3.5-5.1); Sodium 138 mmol/L (136-145); Total Protein 7.4 g/dL (6.6-8.7)
[2025-04-20 14:16] LABS: CA 15-3 24.6 U/mL (0-25)
== END 2025-05-17 23:59 | disposition home or self-care (01) ==
PROVIDERS: Internal Medicine; PCP Physician Assistant; Visit Provider Nurse Practitioner
DX: C50.211 Malignant neoplasm of upper-inner quadrant of right female breast (principal); Z90.11 Acquired absence of right breast and nipple; I48.91 Unspecified atrial fibrillation; R21 Rash and other nonspecific skin eruption; R74.01 Elevation of levels of liver transaminase levels; Z79.899 Other long term (current) drug therapy; Z79.811 Long term (current) use of aromatase inhibitors
CPT/HCPCS: 36415; 80053; 83615; 85025; 86300; 99213

== ENCOUNTER → 2025-04-21 09:13 | Outpatient (BNVA) | payer MEDICARE, OTHER, SELFPAY | PROVIDERS: PCP Physician Assistant; Visit Provider Internal Medicine Cardiovascular Disease | DX: I48.91 Unspecified atrial fibrillation (principal); Z95.818 Presence of other cardiac implants and grafts; I10 Essential (primary) hypertension; E03.9 Hypothyroidism, unspecified | CPT/HCPCS: 99214 ==